=== PATIENT | female | born 1935 | race Caucasian/White ===

== ENCOUNTER → 2016-09-06 | Outpatient (REF) | payer OTHER ==
[2016-09-06 15:55] LABS: ALBUMIN 3.2 GM/DL (3.2-5.2); ALBUMIN/GLOBULIN RATIO 1.19 (1.00-1.93); BILIRUBIN,TOTAL 0.5 MG/DL (0.2-1.0); CALCIUM LEVEL 8.9 MG/DL (8.8-10.2); CREATININE FOR GFR 1.21 MG/DL (0.55-1.02); GLOMERULAR FILTRATION RATE 45.7 (>39); POTASSIUM SERUM 4.6 MEQ/L (3.5-5.1); TOTAL PROTEIN 5.9 GM/DL (6.4-8.2)
== END ==
LOC: M SFHCLACO 08:37
PROVIDERS: ATTEND Physician Assistant
DX: I10 Essential (primary) hypertension (principal); E78.2 Mixed hyperlipidemia; E03.9 Hypothyroidism, unspecified

== ENCOUNTER → 2017-09-05 | Outpatient (REF) | payer OTHER ==
[2017-09-05 15:03] LABS: HEMATOCRIT 31.3 % (36.0-47.0); HEMOGLOBIN 9.5 g/dl (12.0-16.0); MEAN CORPUSCULAR HEMOGLOBIN 25.7 pg (27.0-33.0); MEAN CORPUSCULAR HGB CONC 30.4 g/dl (32.0-36.5); MEAN CORPUSCULAR VOLUME 84.8 fl (80.0-96.0); PLATELET COUNT, AUTOMATED 409 10^3/uL (150-450); RED BLOOD COUNT 3.69 10^6/uL (4.00-5.40); RED CELL DISTRIBUTION WIDTH 14.2 % (11.5-14.5); WHITE BLOOD COUNT 8.4 10^3/uL (4.0-10.0)
[2017-09-05 15:26] LABS: ALBUMIN 3.2 GM/DL (3.2-5.2); ALBUMIN/GLOBULIN RATIO 1.03 (1.00-1.93); ALKALINE PHOSPHATASE 58 U/L (45-117); ALT/SGPT 18 U/L (12-78); ANION GAP 7 MEQ/L (8-16); AST/SGOT 15 U/L (7-37); BILIRUBIN,TOTAL 0.3 MG/DL (0.2-1.0); BLOOD UREA NITROGEN 24 MG/DL (7-18); CALCIUM LEVEL 8.8 MG/DL (8.8-10.2); CARBON DIOXIDE LEVEL 27 MEQ/L (21-32); CHLORIDE LEVEL 108 MEQ/L (98-107); CHOLESTEROL LEVEL 209 MG/DL (<200); CHOLESTEROL RISK RATIO 4.644 (<5); CREATININE FOR GFR 1.11 MG/DL (0.55-1.02); FERRITIN 14 NG/ML (8-252); GLOMERULAR FILTRATION RATE 50.3 (>32); GLUCOSE, FASTING 87 MG/DL (83-110); HDL CHOLESTEROL 45 MG/DL (>40); IRON (FE) 25 UG/DL (50-170); LDL CHOLESTEROL 135.6 MG/DL (<100); NON-HDL-C 164 MG/DL; PERCENT SATURATION 7.3 % (13.2-45.0); POTASSIUM SERUM 4.5 MEQ/L (3.5-5.1); SODIUM LEVEL 142 MEQ/L (136-145); TOTAL IRON BINDING CAPACITY 342 UG/DL (250-450); TOTAL PROTEIN 6.3 GM/DL (6.4-8.2); TRIGLYCERIDES LEVEL 142 MG/DL (<150)
== END ==
LOC: M SFHCLACO 09:12
DX: D50.9 Iron deficiency anemia, unspecified (principal); I10 Essential (primary) hypertension; E78.2 Mixed hyperlipidemia; E03.9 Hypothyroidism, unspecified
CPT/HCPCS: 83550

== ENCOUNTER → 2018-02-08 | Outpatient (REF) | payer OTHER | LOC: M SFHCLACO 13:03 | DX: R10.9 Unspecified abdominal pain (principal) | CPT/HCPCS: 87507 ==

== ENCOUNTER 2019-03-15 18:43 | Emergency (ER) | payer MEDICARE, OTHER ==
[~2019-03-15] VITALS: Ht 165.1 cm; Wt 57.3 kg
[2019-03-15] MEDS ORDERED: LISI40TA (18:50)
[2019-03-15] MEDS ORDERED: LEVO75TA4 (18:50)
[2019-03-15] MEDS ORDERED: METO1TAB87 (18:50)
[2019-03-15] MEDS ORDERED: OMEP-218 (18:50)
[2019-03-15 20:38] VITALS: BP 129/60
[2019-03-15] MEDS ORDERED: EPIP0.3I2 IM (21:25)
[2019-03-15] MEDS ORDERED: PRED20TA PO (21:25)
[2019-03-15] MEDS ORDERED: predniSONE 20 MG TAB PO ONE (21:30)
== END 2019-03-15 21:55 | disposition home or self-care (01) ==
LOC: M ED 18:43
DX: R10.9 Unspecified abdominal pain (principal); R19.7 Diarrhea, unspecified; T63.441A Toxic effect of venom of bees, accidental (unintentional), initial encounter; Y92.89 Other specified places as the place of occurrence of the external cause; I10 Essential (primary) hypertension; E78.5 Hyperlipidemia, unspecified; D50.9 Iron deficiency anemia, unspecified; E83.51 Hypocalcemia; M35.3 Polymyalgia rheumatica; Z79.899 Other long term (current) drug therapy; Z79.890 Hormone replacement therapy

== ENCOUNTER 2019-04-14 08:24 | Inpatient (IN) | payer MEDICARE ==
[~2019-04-14] VITALS: Ht 165.1 cm; Wt 61.1 kg
[~2019-04-14 08:24] MED LIST: EPIP0.3I2 IM; LEVO75TA4 PO; LISI40TA PO; METO1TAB87 PO; OMEP-218 PO; PRED20TA PO
[2019-04-14] MEDS ORDERED: NS 500 ML IV ONE (09:45)
[2019-04-14 10:10] LABS: BASO % 0.3 % (0.0-1.0); EOS % 0.2 % (0.0-3.0); HEMATOCRIT 19.1 % (36.0-47.0); LYMPH # 1.8 10^3/uL (1.5-4.5); MEAN CORPUSCULAR HEMOGLOBIN 24.4 pg (27.0-33.0); MEAN CORPUSCULAR HGB CONC 30.4 g/dl (32.0-36.5); MEAN CORPUSCULAR VOLUME 80.3 fl (80.0-96.0); MONO # 1.2 10^3/uL (0.0-0.8); MONO % 10.8 % (0.0-5.0); NEUTROPHILS # 8.1 10^3/uL (1.8-7.7); NEUTROPHILS % 71.8 % (36.0-66.0); PLATELET COUNT, AUTOMATED 376 10^3/uL (150-450); RED BLOOD COUNT 2.38 10^6/uL (4.00-5.40); WHITE BLOOD COUNT 11.3 10^3/uL (4.0-10.0)
[2019-04-14 10:13] LABS: HEMOGLOBIN 5.8 g/dl (12.0-15.5)
[2019-04-14 10:17] LABS: INR 1.07; PROTHROMBIN TIME 13.6 SECONDS (11.8-14.0)
[2019-04-14 10:33] LABS: ALBUMIN 2.2 GM/DL (3.2-5.2); ALT/SGPT 11 U/L (12-78); BILIRUBIN,DIRECT < 0.1 MG/DL (0.0-0.2); BILIRUBIN,TOTAL 0.2 MG/DL (0.2-1.0); BLOOD UREA NITROGEN 28 MG/DL (7-18); CALCIUM LEVEL 7.9 MG/DL (8.8-10.2); CARBON DIOXIDE LEVEL 22 MEQ/L (21-32); CHLORIDE LEVEL 110 MEQ/L (98-107); CK-MB VALUE MASS < 1.0 NG/ML (<3.6); CPK CREATINE PHOSPHOKINASE 33 U/L (26-192); CREATININE FOR GFR 1.03 MG/DL (0.55-1.30); GLOMERULAR FILTRATION RATE 54.6 (>32); GLUCOSE, FASTING 112 MG/DL (70-100); LIPASE 122 U/L (73-393); MB/CK RELATIVE INDEX 3.03 (< OR =4); POTASSIUM SERUM 4.2 MEQ/L (3.5-5.1); SODIUM LEVEL 141 MEQ/L (136-145); TOTAL PROTEIN 5.2 GM/DL (6.4-8.2); TROPONIN I < 0.02 NG/ML (< 0.10)
[2019-04-14] MEDS ORDERED: ISOVUE-370 76% 100ML VIAL (Q9967) As Ordered ONE (11:01)
[2019-04-14] MEDS ORDERED: METO1TAB87 PO (12:46)
--- NOTE | 2019-04-14 13:56 | HPEPDOC ---
General Date of Admission 04/14/19 Date of Service: Apr 14, 2019 Primary Care Physician: Gina Manzo PA-C, LAC Chief Complaint The patient is a 84-year-old female admitted with a reason for visit of DIZZY. Source: Patient Exam Limitations: No limitations Timing/Duration: Day(s) (today's) Severity: Severe Associated Symptoms: Other (abdominal pain) History of Present Illness 84 years old white female with past medical history of hypertension, hypothyroidism, GERD, status post hysterectomy, was in her usual state of health until about yesterday when she had 1 large polyp BM with bright red colored blood and subsequently after the BM. She passed out and was found by her . Patient just complaining of dizziness. Also complaining of left upper quadrant pain which is intermittent intensity of 6/10 discomfort in nature, not associated with any other symptoms not relieved with any medication and not exacerbated by our moment eating. Patient was found to have a hemoglobin of 5.81 unit of PRBC was ordered to be transfused in ED and we'll called in to admit patient for further workup. Home Medications Scheduled Epinephrine (Epipen 2-Liam) 0.3 Mg/0.3 Ml Auto.injct, 1 SYRINGE IM ONCE Levothyroxine Sodium (Levothyroxine Sodium) 75 Mcg Tablet, 75 MCG PO DAILY, (Reported) Lisinopril (Lisinopril) 40 Mg Tablet, 40 MG PO DAILY, (Reported) Metoprolol Tartrate (Metoprolol Tartrate) 25 Mg Tablet, 25 MG PO DAILY, (Rep orted) Metoprolol Tartrate (Metoprolol Tartrate) 25 Mg Tablet, 50 MG PO QHS, (Reported) Omeprazole (Omeprazole) 20 Mg Capsule.dr, 20 MG PO DAILY, (Reported) Allergies Coded Allergies: No Known Drug Allergies (Verified Allergy, Unknown, 03/15/19) Past Medical History Medical History Hypertension, hypothyroidism, GERD, last colonoscopy done was about 7-10 years ago at [facility] which was normal Surgical History Status post hysterectomy Social History * Smoker: Denies Alcohol: Denies Drugs: denies A-FIB/CHADSVASC A-FIB History Current/History of A-Fib/PAF?: No Review of Systems Constitutional: Reports: Other (, dizziness) Eyes: Denies: Pain, Vision change, Conjunctivae inflammation, Eyelid inflammation, Redness, Other ENT: Denies: Head Aches, Ear Pain, Dysphagia, Sinus Congestion, Post Nasal Drip, Sore Throat, Epistaxis, Other Symptoms Skin: Denies: Rash, Lesions, Jaundice, Bruising, Itching, Dry, Breakdown, Nail Changes, Other Pulmonary: Denies: Dyspnea, Cough, Pleuritic Chest Pain, Other Symptoms Cardiovascular: Denies: Chest Pain, Palpitations, Orthopnea, Paroxysmal Noc. Dyspnea, Edema, Lt Headedness, Other Symptoms Gastrointestinal: Reports: Other Symptoms (, bright red color blood per rectum) Genitourinary: Denies: Dysuria, Frequency, Incontinence, Hematuria, Retention, Other Symptoms Hematologic: Denies: Bruising, Bleeding Excessively, Petecchia, Purpura, Enlarged Lymph Nodes, Other Hematologic Endocrine: Denies: Polydipsia, Polyphagia, Polyuria, Heat Intolerance, Cold Intolerance, Other Endocrine Sx Musculoskeletal: Denies: Neck Pain, Back Pain, Shoulder Pain, Arm Pain, Hand Pain, Leg Pain, Foot Pain, Joint Pain, Muscle Pain, Spasms, Other Symptoms Neurological: Denies: Weakness, Numbness, Incoordination, Change in speech, Confusion, Seizures, Other Symptoms Psych: Denies: Mood Normal, Anxiety, Depression, Memory Issues, Thoughts of Self Harm, Anger, Thoughts of Harming Other, Other Psych Physical Examination General Exam: Positive: Alert, Cooperative Eye Exam: Positive: PERRLA, Conjunctiva & lids normal ENT Exam: Positive: Atraumatic, Mucous membr. moist/pink Neck Exam: Positive: Supple Chest Exam: Positive: Clear to auscultation, Normal air movement Heart Exam: Positive: Rate Normal, Normal S1, Normal S2 Abdomen Exam: Positive: Normal bowel sounds, Soft Extremity Exam: Positive: Normal pulses Skin Exam: Positive: Nl turgor and temperature Neuro Exam: Positive: Strength at 5/5 X4 ext, Sensation Intact Psych Exam: Positive: Mental status NL, Mood NL, Oriented x 3 Vital Signs Vital Signs Date Time Temp Pulse Resp B/P (MAP) Pulse Ox O2 Delivery O2 Flow Rate FiO2 04/14/19 12:00 131/63 (85) 04/14/19 11:54 82 18 100 Room Air 04/14/19 08:24 98.6 Laboratory Data Labs 24H Laboratory Tests 2 04/14/19 09:50: Immature Granulocyte % (Auto) 0.9, White Blood Count 11.3H, Red Blood Count 2.38L, Hemoglobin 5.8*L, Hematocrit 19.1L, Mean Corpuscular Volume 80.3, Mean Corpuscular Hemoglobin 24.4L, Mean Corpuscular Hemoglobin Concent 30.4L, Red Cell Distribution Width 15.4H, Platelet Count 376, Neutrophils (%) (Auto) 71.8H, Lymphocytes (%) (Auto) 16.0L, Monocytes (%) (Auto) 10.8H, Eosinophils (%) (Auto) 0.2, Basophils (%) (Auto) 0.3, Neutrophils # (Auto) 8.1H, Lymphocytes # (Auto) 1.8, Monocytes # (Auto) 1.2H, Eosinophils # (Auto) 0.0, Basophils # (Auto) 0.0, Nucleated Red Blood Cells % (auto) 0.0, Anion Gap 9, Glomerular Filtration Rate 54.6, Lactic Acid Level 1.4, Calcium Level 7.9L, Aspartate Amino Transf (AST/SGOT) 9, Alanine Aminotransferase (ALT/SGPT) 11L, Alkaline Phosphatase 47, Total Bilirubin 0.2, Direct Bilirubin < 0.1, Total Creatine Kinase 33, Creatine Kinase MB < 1.0, Creatine Kinase MB Relative Index 3.03, Troponin I < 0.02, Total Protein 5.2L, Albumin 2.2L, Albumin/Globulin Ratio 0.73L, Lipase 122 04/14/19 09:51: Prothrombin Time 13.6, Prothromb Time International Ratio 1.07, Activated Partial Thromboplast Time 24.0L CBC/BMP Laboratory Tests 04/14/19 09:50 Red Blood Count 2.38 L, Mean Corpuscular Volume 80.3, Mean Corpuscular Hemoglobin 24.4 L, Mean Corpuscular Hemoglobin Concent 30.4 L, Red Cell Distribution Width 15.4 H, Neutrophils (%) (Auto) 71.8 H, Lymphocytes (%) (Auto) 16.0 L, Monocytes (%) (Auto) 10.8 H, Eosinophils (%) (Auto) 0.2, Basophils (%) (Auto) 0.3, Neutrophils # (Auto) 8.1 H, Lymphocytes # (Auto) 1.8, Monocytes # (Auto) 1.2 H, Eosinophils # (Auto) 0.0, Basophils # (Auto) 0.0 Microbiology Microbiology 8/18/19 Blood Culture, Received Pending 04/14/19 Blood Culture, Received Pending Problems (1) Syncope Status: Acute Problem Text: 85 years old white female with past medical history of hypertension, hypothyroidism, GERD. She presented with chief complaints of 3 large bright red blood per rectum episodes followed by syncope. Syncope, most likely secondary to severe anemia secondary to GI bleed Patient will be admitted to PCU with telemetry monitoring IV fluids normal saline 150 mL per hour Transfusing 1 unit of PRBC and will check H&H every 6 hours and transfuse as needed Bed rest with bathroom privileges DVT prophylaxis with bilateral SCDs Monitor vital signs, intake and output (2) GI bleeding Status: Acute Problem Text: Most likely lower GI in nature, could be diverticular bleed versus IBD Patient will be transfused 1 unit of PRBC today CBC every 6 hours Transfuse as needed Dr. Brandon Cintron called and message left for GI consultation May Dani was called from ED in Dr. Chauhan spoke with him regarding consultation Other as per GI and surgery (3) Colitis Status: Acute Problem Text: Official report is still pending, but as per Dr. Chauhan CT abdomen and pelvis shows pancolitis Etiology is unknown patient did had a colonoscopy done about 7-10 years ago at [facility] and was within normal limits The question of IBD third further, will be assessed by GI (4) Anemia Status: Acute Problem Text: Secondary to acute blood loss secondary to lower GI bleed H&H every 6 hours Last visit as needed (5) Hypothyroid Status: Chronic Problem Text: Hold home meds. till Patient is nothing by mouth (6) HTN (hypertension) Status: Chronic Problem Text: Hold home meds (7) GERD (gastroesophageal reflux disease) Status: Chronic Problem Text: On Protonix Plan / VTE VTE Prophylaxis Ordered?: Yes FRANCISCO MOSHER MD Apr 14, 2019 13:56
[2019-04-14 15:23] LABS: HEMATOCRIT 26.9 % (36.0-47.0); MEAN CORPUSCULAR HEMOGLOBIN 26.7 pg (27.0-33.0); MEAN CORPUSCULAR HGB CONC 31.6 g/dl (32.0-36.5); MEAN CORPUSCULAR VOLUME 84.6 fl (80.0-96.0); PLATELET COUNT, AUTOMATED 350 10^3/uL (150-450); RED BLOOD COUNT 3.18 10^6/uL (4.00-5.40); WHITE BLOOD COUNT 9.9 10^3/uL (4.0-10.0)
[2019-04-14 15:24] LABS: HEMOGLOBIN 8.5 g/dl (12.0-15.5)
[2019-04-14] MEDS: PANTOPRAZOLE 40MG INJ (PROTONIX) (C9113) IV SCH ×2 (17:35→20:59)
[2019-04-14] MEDS: NS 1,000 ML IV SCH ×2 (17:35→20:44)
--- NOTE | 2019-04-14 19:21 | ECGEPIP ---
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
[2019-04-14 19:31] LABS: HEMATOCRIT 24.8 % (36.0-47.0); HEMOGLOBIN 7.8 g/dl (12.0-15.5); MEAN CORPUSCULAR HEMOGLOBIN 26.4 pg (27.0-33.0); MEAN CORPUSCULAR HGB CONC 31.5 g/dl (32.0-36.5); MEAN CORPUSCULAR VOLUME 83.8 fl (80.0-96.0); PLATELET COUNT, AUTOMATED 324 10^3/uL (150-450); RED BLOOD COUNT 2.96 10^6/uL (4.00-5.40); WHITE BLOOD COUNT 8.2 10^3/uL (4.0-10.0)
[2019-04-15 02:00] LABS: HEMOGLOBIN 7.3 g/dl (12.0-15.5); MEAN CORPUSCULAR HEMOGLOBIN 26.6 pg (27.0-33.0); MEAN CORPUSCULAR HGB CONC 31.7 g/dl (32.0-36.5); MEAN CORPUSCULAR VOLUME 83.9 fl (80.0-96.0); PLATELET COUNT, AUTOMATED 293 10^3/uL (150-450); RED BLOOD COUNT 2.74 10^6/uL (4.00-5.40); WHITE BLOOD COUNT 8.4 10^3/uL (4.0-10.0)
[2019-04-15] MEDS: NS 1,000 ML IV SCH ×3 (02:58→17:49)
--- NOTE | 2019-04-15 07:25 | REP ---
CT BRAIN WITHOUT CONTRAST: 04/14/2019. Clinical history: Syncope, head injury last evening. LOC. Findings: No prior study. Lateral ventricles are midline symmetric and dilated in proportion to the diffuse cerebral atrophy. All of this is age appropriate. Third and fourth ventricles are proportionate in size as well. Basal ganglia are symmetric. There are heterogeneous low attenuation white matter changes in periventricular regions suggesting chronic small vessel white matter ischemic disease. Moderate atrophy of the cortex without vascular territory infarct, intracranial hemorrhage, mass, extra-axial fluid collection or other significant finding. The brainstem unremarkable. The cerebellum shows atrophy but is symmetric. Mastoids and visualized sinuses were clear. Skull base and calvarium show no fracture or focal lesion. Impression: 1. Ventriculomegaly and proportionate cerebral atrophy, all age appropriate. 2. Chronic small vessel white matter ischemic changes. 3. No fracture of the skull base or calvarium and the sinuses and mastoids are clear. 4. No intracranial hemorrhage or other acute finding. Electronically Signed by Mega Hernandez MD 04/15/2019 08:05 A
--- NOTE | 2019-04-15 07:29 | REP ---
AP PORTABLE CHEST: 04/14/2019. Clinical history: GI bleeding. Findings: No prior study. Lungs well inflated and without infiltrate, effusion, atelectasis or mass. Heart, mediastinal and hilar contours normal for age. The aorta is mildly tortuous but without gross aneurysm. Degenerative changes in the spine and shoulders. No gross fracture. Bones appear demineralized. No free air under the diaphragms. Impression: 1. No acute cardiopulmonary change. Electronically Signed by Mega Hernandez MD 04/15/2019 08:05 A
--- NOTE | 2019-04-15 08:44 | REP ---
CT ABDOMEN AND PELVIS WITHOUT IV CONTRAST ONLY: 04/14/2019. Clinical history: Left lower quadrant pain, GI bleed. Technique: Bolus 100 mL Isovue 370 scanning through the abdomen and pelvis with coronal and sagittal reconstructions provided. Findings: No prior study. CT abdomen: Lung bases with minor dependent atelectatic changes otherwise clear. Heart size mildly prominent but with a trace pericardial fluid. Left atrium mildly prominent. I see no hiatal hernia. Stomach collapsed. Wall thickness, therefore difficult to research specialist. The liver and spleen are not enlarged. Elongated lateral segment left hepatic lobe goes and covers the spleen as an anatomic variation. Adrenal glands normal. Gallbladder without calcified stone or mass. Pancreas normal for age. The aorta has atherosclerotic calcifications without aneurysm or dissection. There is ectasia of the bilateral common iliac arteries without aneurysm. Kidneys show symmetric enhancement. There is no renal mass, cyst, stone or hydronephrosis. No hydroureter seen. I see no evidence of ureteral stone. Lung window review of all CT slices abdomen and pelvis shows no perforation or free air. There is evidence for a colonic wall thickening from cecum, right colon through transverse left colon to the sigmoid. There are inflammatory changes about it in the region of the hepatic flexure, right colon and cecum suggesting colitis. I do not see definite diverticulitis, stricture or mass although there is more thickening of the colonic wall in the region of the hepatic flexure and right colon than elsewhere. Appendix is seen and without inflammatory change or calcification within it. A few tiny nodes are seen adjacent to the cecum. Bone windows show diffuse degenerative disc changes from L2-3 through L5-S1. No compression fractures. No spondylolysis. The lower ribs were intact. CT pelvis: The sacrum, SI joints, iliac bones, hips and ischia show some degenerative change without destructive lesion or fracture. Bladder well filled without mass, wall thickening or stone. No ureteral dilatation or stone. Uterus absent and the vaginal cuff intact and are multiple pelvic phleboliths. The distal left colon and sigmoid show diffuse wall thickening and some minor stranding in the fat adjacent extending down to the rectosigmoid junction. Small bowel loops fluid-filled with some thickening of sheth of the distal and terminal ileum. I do not see any ascites in the pelvis. There is no ventral or inguinal hernia nor pathologic sized inguinal adenopathy. Impression: 1. Pancolitis without signs of diverticulosis/diverticulitis, abscess, perforation or free air. There is increased thickening of the colon wall at the hepatic flexure and proximal right colon that will need followup. I cannot exclude mucosal lesions of air or neoplasm. 2. Small bowel loops fluid-filled but not abnormally dilated. However the distal small bowel loops and terminal ileum do suggest some wall thickening and enteritis. 3. No abdominal or pelvic ascites, adenopathy or mass. 4. Gallbladder without calcified stone or mass. The kidneys, other abdominal solid organs all intact. Electronically Signed by Mega Hernandez MD 04/15/2019 08:49 A
[2019-04-15 10:06] LABS: HEMATOCRIT 25.1 % (36.0-47.0); HEMOGLOBIN 8.1 g/dl (12.0-15.5); MEAN CORPUSCULAR HEMOGLOBIN 27.1 pg (27.0-33.0); MEAN CORPUSCULAR HGB CONC 32.3 g/dl (32.0-36.5); MEAN CORPUSCULAR VOLUME 83.9 fl (80.0-96.0); PLATELET COUNT, AUTOMATED 328 10^3/uL (150-450); RED BLOOD COUNT 2.99 10^6/uL (4.00-5.40)
[2019-04-15] MEDS: PANTOPRAZOLE 40MG INJ (PROTONIX) (C9113) IV SCH ×2 (10:34→20:41)
[2019-04-15 10:41] LABS: ALBUMIN 1.9 GM/DL (3.2-5.2); ALT/SGPT 8 U/L (12-78); BILIRUBIN,TOTAL 0.4 MG/DL (0.2-1.0); BLOOD UREA NITROGEN 19 MG/DL (7-18); CALCIUM LEVEL 7.5 MG/DL (8.8-10.2); CARBON DIOXIDE LEVEL 22 MEQ/L (21-32); CHLORIDE LEVEL 114 MEQ/L (98-107); CREATININE FOR GFR 0.81 MG/DL (0.55-1.30); GLOMERULAR FILTRATION RATE > 60.0 (>32); GLUCOSE, FASTING 76 MG/DL (70-100); POTASSIUM SERUM 3.9 MEQ/L (3.5-5.1); SODIUM LEVEL 143 MEQ/L (136-145); TOTAL PROTEIN 4.9 GM/DL (6.4-8.2)
--- NOTE | 2019-04-15 12:21 | IPNPDOC ---
Subjective Date Seen The patient was seen on 04/15/19. Subjective Chief Complaint/HPI Patient seen and examined in no apparent distress. Family at the bedside General: Denies: ROS Unobtainable, Chills, Night Sweats, Fatigue, Malaise, Normal Appetite, Other Symptoms Constitutional: Denies: Chills, Fever, Malaise, Night Sweats, Weakness, Fatigue, Weight Loss, Lethargy, Other Eyes: Denies: Pain, Vision change, Conjunctivae inflammation, Eyelid inflammation, Redness, Other ENT: Denies: Head Aches, Ear Pain, Dysphagia, Sinus Congestion, Post Nasal Drip, Sore Throat, Epistaxis, Other Symptoms Skin: Denies: Rash, Lesions, Jaundice, Bruising, Itching, Dry, Breakdown, Nail Changes, Other Pulmonary: Denies: Dyspnea, Cough, Pleuritic Chest Pain, Other Symptoms Cardiovascular: Denies: Chest Pain, Palpitations, Orthopnea, Paroxysmal Noc. Dyspnea, Edema, Lt Headedness, Other Symptoms Gastrointestinal: Denies: Nausea, Vomiting, Abdominal Pain, Diarrhea, Co nstipation, Melena, Hematochezia, Other Symptoms Musculoskeletal: Denies: Neck Pain, Back Pain, Shoulder Pain, Arm Pain, Hand Pain, Leg Pain, Foot Pain, Joint Pain, Muscle Pain, Spasms, Other Symptoms Neurological: Denies: Weakness, Numbness, Incoordination, Change in speech, Confusion, Seizures, Other Symptoms Objective Physical Examination General Exam: Positive: Alert, Cooperative Eye Exam: Positive: PERRLA, Conjunctiva & lids normal ENT Exam: Positive: Atraumatic, Mucous membr. moist/pink Neck Exam: Positive: Supple Chest Exam: Positive: Clear to auscultation, Normal air movement Heart Exam: Positive: Rate Normal, Normal S1, Normal S2 Abdomen Exam: Positive: Normal bowel sounds, Soft Extremity Exam: Positive: Normal pulses Skin Exam: Positive: Nl turgor and temperature Neuro Exam: Positive: Strength at 5/5 X4 ext, Sensation Intact Psych Exam: Positive: Mental status NL, Mood NL, Oriented x 3 Assessment /Plan Problems (1) GI bleeding Status: Acute Problem Text: Most likely lower GI in nature, could be diverticular bleed versus IBD Patient will be transfused 1 unit of PRBC today CBC every 6 hours Transfuse as needed Discussed with Dr. Cintron. Patient will be seen by GI today H&H is stable right now. Hemoglobin is 8.1 and hematocrit of 25 And to monitor in H&H every 6 hours Further, as per GIs recommendation (2) Syncope Status: Acute Problem Text: 85 years old white female with past medical history of h ypertension, hypothyroidism, GERD. She presented with chief complaints of 3 large bright red blood per rectum episodes followed by syncope. Syncope, most likely secondary to severe anemia secondary to GI bleed Patient will be admitted to PCU with telemetry monitoring IV fluids normal saline 150 mL per hour Transfusing 1 unit of PRBC and will check H&H every 6 hours and transfuse as needed Bed rest with bathroom privileges DVT prophylaxis with bilateral SCDs Monitor vital signs, intake and output (3) Colitis Status: Acute Problem Text: Official report is still pending, but as per Dr. Chauhan CT abdomen and pelvis shows pancolitis Etiology is unknown patient did had a colonoscopy done about 7-10 years ago at [facility] and was within normal limits The question of IBD third further, will be assessed by GI (4) Anemia Status: Acute Problem Text: Secondary to acute blood loss secondary to lower GI bleed H&H every 6 hours Last visit as needed (5) Hypothyroid Status: Chronic Problem Text: Hold home meds. till Patient is nothing by mouth (6) HTN (hypertension) Status: Chronic Problem Text: Hold home meds (7) GERD (gastroesophageal reflux disease) Status: Chronic Problem Text: On Protonix Plan/VTE VTE Prophylaxis Ordered?: Yes VS, I&O, 24H, Fishbone Vital Signs/I&O Vital Signs Date Time Temp Pulse Resp B/P (MAP) Pulse Ox O2 Delivery O2 Flow Rate FiO2 04/15/19 11:32 98.0 88 16 170/75 (106) 100 Room Air I&O- Last 24 Hours up to 6 AM 04/15/19 06:00 Output Total 500 ml Balance -500 ml Laboratory Data 24H LABS Laboratory Tests 2 04/14/19 14:56: Nucleated Red Blood Cells % (auto) 0.0 04/14/19 19:26: Nucleated Red Blood Cells % (auto) 0.0 04/15/19 01:55: Nucleated Red Blood Cells % (auto) 0.0 04/15/19 09:52: Nucleated Red Blood Cells % (auto) 0.0, Anion Gap 7L, Glomerular Filtration Rate > 60.0, Blood Urea Nitrogen 19H, Creatinine 0.81, Sodium Level 143, Potassium Level 3.9, Chloride Level 114H, Carbon Dioxide Level 22, Calcium Level 7.5L, Aspartate Amino Transf (AST/SGOT) 8, Alanine Aminotransferase (ALT/SGPT) 8L, Alkaline Phosphatase 43L, Total Bilirubin 0.4#, Total Protein 4.9L, Albumin 1.9L, Albumin/Globulin Ratio 0.63L CBC/BMP Laboratory Tests 04/14/19 14:56 Red Blood Count 3.18 L, Mean Corpuscular Volume 84.6, Mean Corpuscular Hemoglobin 26.7 L, Mean Corpuscular Hemoglobin Concent 31.6 L, Red Cell Distribution Width 16.3 H 04/14/19 19:26 Red Blood Count 2.96 L, Mean Corpuscular Volume 83.8, Mean Corpuscular Hemoglobin 26.4 L, Mean Corpuscular Hemoglobin Concent 31.5 L, Red Cell Distribution Width 15.8 H 04/15/19 01:55 Red Blood Count 2.74 L, Mean Corpuscular Volume 83.9, Mean Corpuscular Hemoglobin 26.6 L, Mean Corpuscular Hemoglobin Concent 31.7 L, Red Cell Distribution Width 15.9 H 04/15/19 09:52 Red Blood Count 2.99 L, Mean Corpuscular Volume 83.9, Mean Corpuscular Hem oglobin 27.1, Mean Corpuscular Hemoglobin Concent 32.3, Red Cell Distribution Width 16.0 H, Calcium Level 7.5 L, Aspartate Amino Transf (AST/SGOT) 8, Alanine Aminotransferase (ALT/SGPT) 8 L, Alkaline Phosphatase 43 L, Total Bilirubin 0.4 #, Total Protein 4.9 L, Albumin 1.9 L Microbiology Microbiology 04/14/19 Blood Culture - Preliminary, Resulted No growth after 24 hours . All specim... 04/14/19 Blood Culture - Preliminary, Resulted No growth after 24 hours . All specim... FRANCISCO MOSHER MD Apr 15, 2019 12:21
[2019-04-15 13:06] LABS: HEMATOCRIT 23.6 % (36.0-47.0); HEMOGLOBIN 7.5 g/dl (12.0-15.5); MEAN CORPUSCULAR HEMOGLOBIN 26.2 pg (27.0-33.0); MEAN CORPUSCULAR HGB CONC 31.8 g/dl (32.0-36.5); MEAN CORPUSCULAR VOLUME 82.5 fl (80.0-96.0); PLATELET COUNT, AUTOMATED 332 10^3/uL (150-450); RED BLOOD COUNT 2.86 10^6/uL (4.00-5.40); WHITE BLOOD COUNT 9.5 10^3/uL (4.0-10.0)
[2019-04-15 14:40] VITALS: BP 165/71
[2019-04-15 16:00] VITALS: BP 135/63
[2019-04-15 19:00] LABS: HEMATOCRIT 19.6 % (36.0-47.0); MEAN CORPUSCULAR HEMOGLOBIN 25.8 pg (27.0-33.0); MEAN CORPUSCULAR HGB CONC 30.1 g/dl (32.0-36.5); MEAN CORPUSCULAR VOLUME 85.6 fl (80.0-96.0); PLATELET COUNT, AUTOMATED 279 10^3/uL (150-450); RED BLOOD COUNT 2.29 10^6/uL (4.00-5.40); WHITE BLOOD COUNT 6.8 10^3/uL (4.0-10.0)
[2019-04-15 19:04] LABS: HEMOGLOBIN 5.9 g/dl (12.0-15.5)
[2019-04-15 20:00] VITALS: BP 150/67
[2019-04-15 23:59] VITALS: BP 135/68
[2019-04-16] MEDS: NS 1,000 ML IV SCH ×4 (03:00→20:54)
[2019-04-16 03:20] LABS: HEMATOCRIT 31.3 % (36.0-47.0); MEAN CORPUSCULAR HEMOGLOBIN 25.8 pg (27.0-33.0); MEAN CORPUSCULAR HGB CONC 32.3 g/dl (32.0-36.5); MEAN CORPUSCULAR VOLUME 79.8 fl (80.0-96.0); PLATELET COUNT, AUTOMATED 326 10^3/uL (150-450); RED BLOOD COUNT 3.92 10^6/uL (4.00-5.40)
[2019-04-16 03:22] LABS: HEMOGLOBIN 10.1 g/dl (12.0-15.5)
[2019-04-16 03:31] LABS: INR 1.1; PROTHROMBIN TIME 13.9 SECONDS (11.8-14.0)
[2019-04-16 03:32] LABS: PARTIAL THROMBOPLASTIN TIME 28.7 SECONDS (25.0-38.4)
[2019-04-16 03:46] LABS: ALBUMIN 1.9 GM/DL (3.2-5.2); ALT/SGPT 9 U/L (12-78); BILIRUBIN,DIRECT 0.2 MG/DL (0.0-0.2); BILIRUBIN,TOTAL 1.1 MG/DL (0.2-1.0); BLOOD UREA NITROGEN 14 MG/DL (7-18); CALCIUM LEVEL 7.5 MG/DL (8.8-10.2); CARBON DIOXIDE LEVEL 23 MEQ/L (21-32); CHLORIDE LEVEL 117 MEQ/L (98-107); CREATININE FOR GFR 0.83 MG/DL (0.55-1.30); GLOMERULAR FILTRATION RATE > 60.0 (>32); GLUCOSE, FASTING 77 MG/DL (70-100); POTASSIUM SERUM 3.6 MEQ/L (3.5-5.1); SODIUM LEVEL 145 MEQ/L (136-145); TOTAL PROTEIN 4.9 GM/DL (6.4-8.2)
[2019-04-16 04:00] VITALS: BP 147/70
[2019-04-16 08:00] VITALS: BP 139/70
[2019-04-16] MEDS ORDERED: GOLYTELY SOLN 4000 ML BTL PO ONE (09:00)
[2019-04-16] MEDS: PANTOPRAZOLE 40MG INJ (PROTONIX) (C9113) IV SCH ×2 (09:06→20:54)
--- NOTE | 2019-04-16 10:41 | IPNPDOC ---
Subjective Date Seen The patient was seen on 04/16/19. Subjective Chief Complaint/HPI Patient sitting in chair. Both granddaughters at the bedside in no apparent distress. Offers no new complaints General: Denies: ROS Unobtainable, Chills, Night Sweats, Fatigue, Malaise, Normal Appetite, Other Symptoms Constitutional: Denies: Chills, Fever, Malaise, Night Sweats, Weakness, Fatigue, Weight Loss, Lethargy, Other Eyes: Denies: Pain, Vision change, Conjunctivae inflammation, Eyelid inflammation, Redness, Other ENT: Denies: Head Aches, Ear Pain, Dysphagia, Sinus Congestion, Post Nasal Drip, Sore Throat, Epistaxis, Other Symptoms Skin: Denies: Rash, Lesions, Jaundice, Bruising, Itching, Dry, Breakdown, Nail Changes, Other Pulmonary: Denies: Dyspnea, Cough, Pleuritic Chest Pain, Other Symptoms Cardiovascular: Denies: Chest Pain, Palpitations, Orthopnea, Paroxysmal Noc. Dy spnea, Edema, Lt Headedness, Other Symptoms Gastrointestinal: Denies: Nausea, Vomiting, Abdominal Pain, Diarrhea, Constipation, Melena, Hematochezia, Other Symptoms Genitourinary: Denies: Dysuria, Frequency, Incontinence, Hematuria, Retention, Other Symptoms Hematologic: Denies: Bruising, Bleeding Excessively, Petecchia, Purpura, En larged Lymph Nodes, Other Hematologic Endocrine: Denies: Polydipsia, Polyphagia, Polyuria, Heat Intolerance, Cold Intolerance, Other Endocrine Sx Musculoskeletal: Denies: Neck Pain, Back Pain, Shoulder Pain, Arm Pain, Hand Pain, Leg Pain, Foot Pain, Joint Pain, Muscle Pain, Spasms, Other Symptoms Neurological: Denies: Weakness, Numbness, Incoordination, Change in speech, Confusion, Seizures, Other Symptoms Objective Physical Examination General Exam: Positive: Alert, Cooperative Eye Exam: Positive: PERRLA, Conjunctiva & lids normal ENT Exam: Positive: Atraumatic, Mucous membr. moist/pink Neck Exam: Positive: Supple Chest Exam: Positive: Clear to auscultation, Normal air movement Heart Exam: Positive: Rate Normal, Normal S1, Normal S2 Abdomen Exam: Positive: Normal bowel sounds, Soft Extremity Exam: Positive: Normal pulses Skin Exam: Positive: Nl turgor and temperature Neuro Exam: Positive: Strength at 5/5 X4 ext, Sensation Intact Psych Exam: Positive: Mental status NL, Mood NL, Oriented x 3 Assessment /Plan Problems (1) GI bleeding Status: Acute Problem Text: Most likely lower GI in nature, could be diverticular bleed versus IBD Patient received 2 units of PRBC last night with hemoglobin of 10.1, now Scheduled for colonoscopy and EGD in a.m. Repeat CBC at 5 PM today Transfuse as needed. continue Protonix (2) Syncope Status: Acute Problem Text: 85 years old white female with past medical history of hypertension, hypothyroidism, GERD. She presented with chief complaints of 3 large bright red blood per rectum episodes followed by syncope. Syncope, most likely secondary to severe anemia secondary to GI bleed Patient will be admitted to PCU with telemetry monitoring IV fluids normal saline 150 mL per hour Bed rest with bathroom privileges DVT prophylaxis with bilateral SCDs Monitor vital signs, intake and output (3) Colitis Status: Acute Problem Text: Official report is still pending, but as per Dr. Chauhan CT abdomen and pelvis shows pancolitis Etiology is unknown patient did had a colonoscopy done about 7-10 years ago at [place] and was within normal limits The question of IBD third further, will be assessed by GI (4) Anemia Status: Acute Problem Text: Secondary to acute blood loss secondary to lower GI bleed H&H every 6 hours Last visit as needed (5) Hypothyroid Status: Chronic Problem Text: Hold home meds. till Patient is nothing by mouth (6) HTN (hypertension) Status: Chronic Problem Text: Hold home meds (7) GERD (gastroesophageal reflux disease) Status: Chronic Problem Text: On Protonix Plan/VTE VTE Prophylaxis Ordered?: Yes VS, I&O, 24H, [facility] Vital Signs/I&O Vital Signs Date Time Temp Pulse Resp B/P (MAP) Pulse Ox O2 Delivery O2 Flow Rate FiO2 04/16/19 08:00 97.5 78 20 139/70 (93) 99 04/15/19 11:32 Room Air I&O- Last 24 Hours up to 6 AM 04/16/19 06:00 Intake Total 2985 ml Output Total 1850 ml Balance 1135 ml Laboratory Data 24H LABS Laboratory Tests 2 04/15/19 12:54: Nucleated Red Blood Cells % (auto) 0.0 04/15/19 18:48: Nucleated Red Blood Cells % (auto) 0.0 04/16/19 03:03: Nucleated Red Blood Cells % (auto) 0.0, Prothrombin Time 13.9, Prothromb Time International Ratio 1.10, Activated Partial Thromboplast Time 28.7, Anion Gap 5L, Glomerular Filtration Rate > 60.0, Blood Urea Nitrogen 14, Creatinine 0.83, Sodium Level 145, Potassium Level 3.6, Chloride Level 117H, Carbon Dioxide Level 23, Calcium Level 7.5L, Aspartate Amino Transf (AST/SGOT) 15, Alanine Aminotransferase (ALT/SGPT) 9L, Alkaline Phosphatase 42L, Total Bilirubin 1.1#H, Direct Bilirubin 0.2, Total Protein 4.9L, Albumin 1.9L, Albumin/Globulin Ratio 0.63L CBC/BMP Laboratory Tests 04/15/19 12:54 Red Blood Count 2.86 L, Mean Corpuscular Volume 82.5, Mean Corpuscular Hemoglobin 26.2 L, Mean Corpuscular Hemoglobin Concent 31.8 L, Red Cell Distribution Width 16.2 H 04/15/19 18:48 Red Blood Count 2.29 L, Mean Corpuscular Volume 85.6, Mean Corpuscular Hemoglobin 25.8 L, Mean Corpuscular Hemoglobin Concent 30.1 L, Red Cell Distribution Width 16.2 H 04/16/19 03:03 Red Blood Count 3.92 L, Mean Corpuscular Volume 79.8 L, Mean Corpuscular Hemoglobin 25.8 L, Mean Corpuscular Hemoglobin Concent 32.3, Red Cell Dist ribution Width 17.9 H, Calcium Level 7.5 L, Aspartate Amino Transf (AST/SGOT) 15, Alanine Aminotransferase (ALT/SGPT) 9 L, Alkaline Phosphatase 42 L, Total Bilirubin 1.1 #H, Direct Bilirubin 0.2, Total Protein 4.9 L, Albumin 1.9 L Microbiology Microbiology 04/14/19 Blood Culture - Preliminary, Resulted No Growth after 48 hours. All Specime... 04/14/19 Blood Culture - Preliminary, Resulted No Growth after 48 hours. All Specime... FRANCISCO MOSHER MD Apr 16, 2019 10:41
[2019-04-16 12:00] VITALS: BP 145/60
--- NOTE | 2019-04-16 16:54 | CR ---
DATE OF CONSULTATION: 04/15/2019 This is an 84-year-old white female who was admitted on Monday morning to [facility] due to sudden onset of rectal bleeding, sudden onset on Monday. The patient had at least four bowel movements of apparent bright red blood per rectum. She sustained unconsciousness with no head trauma. No fevers, night sweats or shaking chills. The patient has never had any episodes of bleeding from the rectum. Her last colonoscopy was at least 12 years ago. The patient has a significant past medical history of hypertension, hypothyroidism, gastroesophageal reflux disease (GERD), status post hysterectomy. She has no complaints abdominal pain. No fevers, night sweats or shaking chills. No nausea or vomiting. The patient's counts on admission showed a hemoglobin of 5.81. MEDICATIONS AT HOME: Include an Epipen, levothyroxine, lisinopril and metoprolol, and omeprazole. ALLERGIES: No known declared allergies. PAST MEDICAL HISTORY: As above. Again, the last colonoscopy was at least 10-12 years ago. SURGICAL HISTORY: Status post hysterectomy. SOCIAL HISTORY: Cigarettes, alcohol, drugs negative. REVIEW OF SYSTEMS: Noncontributory to the above problem. PHYSICAL EXAM: General: She is a well-developed, well-nourished white female in no obvious acute distress. Appears stated age. Abdomen: Soft but very mild epigastric tenderness. No hepatosplenomegaly. Bowel sounds positive. Chest is clear to auscultation and percussion. Cardiovascular exam showed a regular rhythm. No murmurs or gallops. Normal physiological split S1, S2. Extremities: No cyanosis, clubbing or edema. Marion's negative. Laboratory studies on admission showed a white count of 11,300, hemoglobin and hematocrit that is 5.8 and 19.1. The patient has had blood transfusion, two units of packed cells. Her blood count on the day of consultation on 04/15/2019 showed a hemoglobin and hematocrit (blood count) of 5.9 and 19.6. CMP was normal. Albumin was 2.2. Imaging studies on Ekaterina included an abdominal CT. Abdominal CT showed no masses or strictures. No diverticulitis was seen. ANALYSIS: Lower gastrointestinal (GI) bleeding of unknown etiology. PLAN: At the present time, the plan will be: 1. Transfuse the patient as needed. 2. Surgery has been consulted. 3. Start the patient on a liquid diet. 4. Colonoscopy will be set up for Monday in [facility] with upper endoscopy for evaluation of epigastric tenderness.
[2019-04-16 17:14] LABS: HEMATOCRIT 32.1 % (36.0-47.0); HEMOGLOBIN 10.2 g/dl (12.0-15.5); MEAN CORPUSCULAR HEMOGLOBIN 25.4 pg (27.0-33.0); MEAN CORPUSCULAR HGB CONC 31.8 g/dl (32.0-36.5); MEAN CORPUSCULAR VOLUME 79.9 fl (80.0-96.0); PLATELET COUNT, AUTOMATED 354 10^3/uL (150-450); RED BLOOD COUNT 4.02 10^6/uL (4.00-5.40); WHITE BLOOD COUNT 8.3 10^3/uL (4.0-10.0)
[2019-04-16 20:00] VITALS: BP 156/78
[2019-04-16 23:59] VITALS: BP 160/64
[2019-04-17 04:00] VITALS: BP 134/72
[2019-04-17 04:52] LABS: HEMATOCRIT 31.3 % (36.0-47.0); HEMOGLOBIN 9.8 g/dl (12.0-15.5); MEAN CORPUSCULAR HEMOGLOBIN 25.1 pg (27.0-33.0); MEAN CORPUSCULAR HGB CONC 31.3 g/dl (32.0-36.5); MEAN CORPUSCULAR VOLUME 80.3 fl (80.0-96.0); PLATELET COUNT, AUTOMATED 352 10^3/uL (150-450); WHITE BLOOD COUNT 7.5 10^3/uL (4.0-10.0)
[2019-04-17 05:17] LABS: ALT/SGPT 9 U/L (12-78); BILIRUBIN,TOTAL 0.7 MG/DL (0.2-1.0); BLOOD UREA NITROGEN 7 MG/DL (7-18); CALCIUM LEVEL 7.5 MG/DL (8.8-10.2); CARBON DIOXIDE LEVEL 21 MEQ/L (21-32); CHLORIDE LEVEL 115 MEQ/L (98-107); CREATININE FOR GFR 0.77 MG/DL (0.55-1.30); GLOMERULAR FILTRATION RATE > 60.0 (>32); GLUCOSE, FASTING 68 MG/DL (70-100); POTASSIUM SERUM 3.4 MEQ/L (3.5-5.1); SODIUM LEVEL 144 MEQ/L (136-145); TOTAL PROTEIN 4.3 GM/DL (6.4-8.2)
[2019-04-17 08:00] VITALS: BP 155/72
[2019-04-17] MEDS: KCL 10MEQ/100ML SWI (KRUN) 10 MEQ in APPROPRIATE DILUENT 1 EA IV SCH ×2 (08:58→10:24)
[2019-04-17] MEDS: PANTOPRAZOLE 40MG INJ (PROTONIX) (C9113) IV SCH ×2 (08:58→21:06)
[2019-04-17] MEDS: NS 1,000 ML IV SCH (08:58)
--- NOTE | 2019-04-17 11:56 | IPNPDOC ---
Subjective Date Seen The patient was seen on 04/17/19. Subjective Chief Complaint/HPI Patient is clinically stable, awaiting EGD and colonoscopy today General: Denies: ROS Unobtainable, Chills, Night Sweats, Fatigue, Malaise, Normal Appetite, Other Symptoms Constitutional: Denies: Chills, Fever, Malaise, Night Sweats, Weakness, Fatigue, Weight Loss, Lethargy, Other Eyes: Denies: Pain, Vision change, Conjunctivae inflammation, Eyelid inflammation, Redness, Other ENT: Denies: Head Aches, Ear Pain, Dysphagia, Sinus Congestion, Post Nasal Dr ip, Sore Throat, Epistaxis, Other Symptoms Skin: Denies: Rash, Lesions, Jaundice, Bruising, Itching, Dry, Breakdown, Nail Changes, Other Pulmonary: Denies: Dyspnea, Cough, Pleuritic Chest Pain, Other Symptoms Cardiovascular: Denies: Chest Pain, Palpitations, Orthopnea, Paroxysmal Noc. Dyspnea, Edema, Lt Headedness, Other Symptoms Gastrointestinal: Denies: Nausea, Vomiting, Abdominal Pain, Diarrhea, Constipation, Melena, Hematochezia, Other Symptoms Musculoskeletal: Denies: Neck Pain, Back Pain, Shoulder Pain, Arm Pain, Hand Pain, Leg Pain, Foot Pain, Joint Pain, Muscle Pain, Spasms, Other Symptoms Neurological: Denies: Weakness, Numbness, Incoordination, Change in speech, Confusion, Seizures, Other Symptoms Objective Physical Examination General Exam: Positive: Alert, Cooperative Eye Exam: Positive: PERRLA, Conjunctiva & lids normal ENT Exam: Positive: Atraumatic, Mucous membr. moist/pink Neck Exam: Positive: Supple Chest Exam: Positive: Clear to auscultation, Normal air movement Heart Exam: Positive: Rate Normal, Normal S1, Normal S2 Abdomen Exam: Positive: Normal bowel sounds, Soft Extremity Exam: Positive: Normal pulses Skin Exam: Positive: Nl turgor and temperature Neuro Exam: Positive: Strength at 5/5 X4 ext, Sensation Intact Psych Exam: Positive: Mental status NL, Mood NL, Oriented x 3 Assessment /Plan Problems (1) GI bleeding Status: Acute Problem Text: Most likely lower GI in nature, could be diverticular bleed versus IBD Patient's hemoglobin stable, etc. Scheduled for EGD and colonoscopy today Continue Protonix Repeat H&H in a.m. Further, as per GI recommendation (2) Syncope Status: Acute Problem Text: 85 years old white female with past medical history of hypertension, hypothyroidism, GERD. She presented with chief complaints of 3 large bright red blood per rectum episodes followed by syncope. Syncope, most likely secondary to severe anemia secondary to GI bleed Patient will be admitted to PCU with telemetry monitoring IV fluids normal saline 150 mL per hour Bed rest with bathroom privileges DVT prophylaxis with bilateral SCDs Monitor vital signs, intake and output (3) Colitis Status: Acute Problem Text: Official report is still pending, but as per Dr. Chauhan CT abdomen and pelvis shows pancolitis Etiology is unknown patient did had a colonoscopy done about 7-10 years ago at [place] and was within normal limits The question of IBD third further, will be assessed by GI (4) Anemia Status: Acute Problem Text: Secondary to acute blood loss secondary to lower GI bleed H&H in a.m. stable at the present time (5) Hypothyroid Status: Chronic Problem Text: Hold home meds. till Patient is nothing by mouth (6) HTN (hypertension) Status: Chronic Problem Text: Hold home meds Will restart after the procedure (7) GERD (gastroesophageal reflux disease) Status: Chronic Problem Text: On Protonix Plan/VTE VTE Prophylaxis Ordered?: Yes VS, I&O, 24H, [facility] Vital Signs/I&O Vital Signs Date Time Temp Pulse Resp B/P (MAP) Pulse Ox O2 Delivery O2 Flow Rate FiO2 04/17/19 08:00 98.3 74 20 155/72 (99) 99 04/15/19 11:32 Room Air I&O- Last 24 Hours up to 6 AM 04/17/19 06:00 Intake Total 2860 ml Output Total 3875 ml Balance -1015 ml Laboratory Data 24H LABS Laboratory Tests 2 04/16/19 16:39: Nucleated Red Blood Cells % (auto) 0.0 04/17/19 04:21: Nucleated Red Blood Cells % (auto) 0.0, Anion Gap 8, Glomerular Filtration Rate > 60.0, Blood Urea Nitrogen 7, Creatinine 0.77, Sodium Level 144, Potassium Level 3.4L, Chloride Level 115H, Carbon Dioxide Level 21, Calcium Level 7.5L, Aspartate Amino Transf (AST/SGOT) 10, Alanine Aminotransferase (ALT/SGPT) 9L, Alkaline Phosphatase 43L, Total Bilirubin 0.7, Total Protein 4.3L, Albumin 2.0L, Albumin/Globulin Ratio 0.87L CBC/BMP Laboratory Tests 04/16/19 16:39 Red Blood Count 4.02, Mean Corpuscular Volume 79.9 L, Mean Corpuscular Hemoglobin 25.4 L, Mean Corpuscular Hemoglobin Concent 31.8 L, Red Cell Distribution Width 18.7 H 04/17/19 04:21 Red Blood Count 3.90 L, Mean Corpuscular Volume 80.3, Mean Corpuscular Hemoglobin 25.1 L, Mean Corpuscular Hemoglobin Concent 31.3 L, Red Cell Distribution Width 18.9 H, Calcium Level 7.5 L, Aspartate Amino Transf (AST/SGOT) 10, Alanine Aminotransferase (ALT/SGPT) 9 L, Alkaline Phosphatase 43 L, Total Bilirubin 0.7, Total Protein 4.3 L, Albumin 2.0 L Microbiology Microbiology 04/14/19 Blood Culture - Preliminary, Resulted No Growth after 72 hours. All specime... 04/14/19 Blood Culture - Preliminary, Resulted No Growth after 72 hours. All specime... FRANCISCO MOSHER MD Apr 17, 2019 11:56
[2019-04-17 12:00] VITALS: BP 136/82
[2019-04-17] MEDS ORDERED: LIDOCAINE 2% INJ 100 MG/5 ML SDV (FOR ANES.) As Ordered ONE (13:00)
[2019-04-17] MEDS ORDERED: PROPOFOL 200 MG/20 ML VIAL As Ordered ONE (13:00)
--- NOTE | 2019-04-17 13:24 | ROOR ---
Patient Name: Ekaterina Smith Procedure Date: 04/17/2019 1:09 PM Date of : 1935 Age: 84 Room: [facility] Gender: Female Note Status: Finalized Procedure: Upper GI endoscopy Indications: Epigastric abdominal pain Providers: Brandon Cintron MD Referring MD: 2. Inpatient 2. Inpatient, TERENCE Morel PA-C Requesting Provider: Medicines: Monitored Anesthesia Care Complications: No immediate complications. Procedure: Pre-Anesthesia Assessment: - The heart rate, respiratory rate, oxygen saturations, blood pressure, adequacy of pulmonary ventilation, and response to care were monitored throughout the procedure. The Endoscope was introduced through the mouth, and advanced to the second part of duodenum. The upper GI endoscopy was accomplished without difficulty. The patient tolerated the procedure well. Findings: The Z-line was regular and was found 40 cm from the incisors. No other significant abnormalities were identified in a careful examination of the stomach. The exam of the duodenum was otherwise normal. Impression: - Z-line regular, 40 cm from the incisors. - No specimens collected. - The examination was otherwise normal. Recommendation: - Patient has a contact number available for emergencies. The signs and symptoms of potential delayed complications were discussed with the patient. Return to normal activities tomorrow. Written discharge instructions were provided to the patient. - High fiber diet. - Continue present medications. - Return to referring physician. - [facility]. - The findings and recommendations were discussed with the patient's family. Brandon Cintron MD Brandon Cintron MD 04/17/2019 1:23:47 PM Electronically signed by Brandon Cintron MD Number of Addenda: 0 Note Initiated On: 04/17/2019 1:09 PM Estimated Blood Loss: Estimated blood loss: none.
--- NOTE | 2019-04-17 13:52 | ROOR ---
Patient Name: Ekaterina Smith Procedure Date: 04/17/2019 1:11 PM Date of : 1935 Age: 84 Room: [facility] Gender: Female Note Status: Finalized Procedure: Total Colonoscopy to cecum + Bx. Indications: Rectal bleeding Providers: Brandon Cintron MD Referring MD: 2. Inpatient 2. Inpatient, TERENCE Morel PA-C Requesting Provider: Medicines: Monitored Anesthesia Care Complications: No immediate complications. Procedure: Pre-Anesthesia Assessment: - The heart rate, respiratory rate, oxygen saturations, blood pressure, adequacy of pulmonary ventilation, and response to care were monitored throughout the procedure. The Colonoscope was introduced through the anus and advanced to the cecum, identified by appendiceal orifice and ileocecal valve. The colonoscopy was performed without difficulty. The patient tolerated the procedure well. The quality of the bowel preparation was good. Findings: The perianal and digital rectal examinations were normal. Non-bleeding internal hemorrhoids were found during retroflexion. The hemorrhoids were small and Grade I (internal hemorrhoids that do not prolapse). Multiple small and large-mouthed diverticula were found in the recto-sigmoid colon, sigmoid colon and descending colon. A polypoid non-obstructing large mass was found in the cecum. The mass was circumferential. No bleeding was present. This was biopsied with a cold forceps for histology. A small polyp was found in the mid ascending colon. The polyp was sessile. The polyp was removed with a jumbo cold forceps. Resection and retrieval were complete. The exam was otherwise without abnormality on direct and retroflexion views. Impression: - Non-bleeding internal hemorrhoids. - Diverticulosis in the recto-sigmoid colon, in the sigmoid colon and in the descending colon. - Rule out malignancy, tumor in the cecum. Biopsied. - One small polyp in the mid ascending colon, removed with a jumbo cold forceps. Resected and retrieved. - The examination was otherwise normal on direct and retroflexion views. Recommendation: - Patient has a contact number available for emergencies. The signs and symptoms of potential delayed complications were discussed with the patient. Return to normal activities tomorrow. Written discharge instructions were provided to the patient. - [facility]. - Resume regular diet. - Await pathology results. - Telephone GI clinic for pathology results in 1 week. - Return to referring physician. - The findings and recommendations were discussed with the patient's family. Brandon Cintron MD Brandon Cintron MD 04/17/2019 1:52:37 PM Electronically signed by Brandon Cintron MD Number of Addenda: 0 Note Initiated On: 04/17/2019 1:11 PM Estimated Blood Loss: Estimated blood loss: none.
[2019-04-17 16:00] VITALS: BP 134/86
[2019-04-17 20:00] VITALS: BP 150/72
[2019-04-17 23:59] VITALS: BP 134/74
[2019-04-18] MEDS: NS 1,000 ML IV SCH (03:00)
[2019-04-18 04:00] VITALS: BP 140/65
[2019-04-18 05:48] LABS: HEMATOCRIT 31.4 % (36.0-47.0); HEMOGLOBIN 9.9 g/dl (12.0-15.5); MEAN CORPUSCULAR HEMOGLOBIN 24.8 pg (27.0-33.0); MEAN CORPUSCULAR HGB CONC 31.5 g/dl (32.0-36.5); MEAN CORPUSCULAR VOLUME 78.5 fl (80.0-96.0); PLATELET COUNT, AUTOMATED 345 10^3/uL (150-450); WHITE BLOOD COUNT 10.1 10^3/uL (4.0-10.0)
[2019-04-18 06:24] LABS: ALBUMIN 1.9 GM/DL (3.2-5.2); ALT/SGPT 7 U/L (12-78); BILIRUBIN,TOTAL 0.5 MG/DL (0.2-1.0); BLOOD UREA NITROGEN 5 MG/DL (7-18); CALCIUM LEVEL 7.4 MG/DL (8.8-10.2); CARBON DIOXIDE LEVEL 22 MEQ/L (21-32); CHLORIDE LEVEL 114 MEQ/L (98-107); CREATININE FOR GFR 0.84 MG/DL (0.55-1.30); GLOMERULAR FILTRATION RATE > 60.0 (>32); GLUCOSE, FASTING 76 MG/DL (70-100); POTASSIUM SERUM 3.5 MEQ/L (3.5-5.1); SODIUM LEVEL 144 MEQ/L (136-145); TOTAL PROTEIN 4.7 GM/DL (6.4-8.2)
[2019-04-18 08:00] VITALS: BP 172/88
[2019-04-18] MEDS: PANTOPRAZOLE 40MG INJ (PROTONIX) (C9113) IV SCH (08:40)
[2019-04-18] MEDS ORDERED: PROTPAK PO (10:58)
[2019-05-01] MEDS ORDERED: CIDA500T2 PO (11:11)
[2019-05-01] MEDS ORDERED: KP F1200 PO (11:11)
[2019-05-01] MEDS ORDERED: IRON1TAB2 PO (11:11)
--- NOTE | 2019-05-02 13:46 | DS.PDOC ---
Discharge Summary General Date of Admission Apr 14, 2019 at 13:34 Date of Discharge 04/18/19 Attending Physician: FRANCISCO MOSHER MD Discharge Summary PROCEDURES PERFORMED DURING STAY: None. ADMITTING DIAGNOSES: 1. Lower GI bleed, pancolitis. Anemia DISCHARGE DIAGNOSES: 1. Lower GI bleed. Pancolitis, anemia large internal hemorrhoids. COMPLICATIONS/CHIEF COMPLAINT: Gi Bleeding. HISTORY OF PRESENT ILLNESS: 84 years old white female with past medical history of hypertension, hypothyroidism, GERD, status post hysterectomy, was in her usual state of health until about yesterday when she had 1 large polyp BM with bright red colored blood and subsequently after the BM. She passed out and was found by her . Patient just complaining of dizziness. Also complaining of left upper quadrant pain which is intermittent intensity of 6/10 discomfort in nature, not associated with any other symptoms not relieved with any medication and not exacerbated by our moment eating. Patient was found to have a hemoglobin of 5.81 unit of PRBC was ordered to be transfused in ED and we'll called in to admit patient for further workup. HOSPITAL COURSE: GI BLEED Most likely lower GI in nature, could be diverticular bleed versus IBD Patient's hemoglobin stable, etc. Patient had a EGD and colonoscopy done which were essentially negative, did not show any source of active bleeding, but did show a large internal hemorrhoids Patient remained stable started tolerating oral feeding. Hemoglobin was stable and she was discharged back home. Follow with Dr. Cintron as an outpatient in one week Syncope 85 years old white female with past medical history of hypertension, hypothyroidism, GERD. She presented with chief complaints of 3 large bright red blood per rectum episodes followed by syncope. Syncope, most likely secondary to severe anemia secondary to GI bleed Patient will be admitted to PCU with telemetry monitoring IV fluids normal saline 150 mL per hour Bed rest with bathroom privileges DVT prophylaxis with bilateral SCDs Monitor vital signs, intake and output May-colitis Official report is still pending, but as per Dr. Chauhan CT abdomen and pelvis shows pancolitis Etiology is unknown patient did had a colonoscopy done about 7-10 years ago at [place] and was within normal limits Resolved while patient was in inpatient. Further workup as an outpatient with Dr. Cintron Anemia Secondary to acute blood loss secondary to lower GI bleed H&H in a.m. stable at the present time Hypothyroid Chronic Meds are on hold while patient was nothing by mouth but will restart it HTN Remained stable on by mouth meds GERD Chronic On Protonix DISCHARGE MEDICATIONS: Please see below. ALLERGIES: Please see below. PHYSICAL EXAMINATION ON DISCHARGE: VITAL SIGNS: Please see below. GENERAL: Within normal limits HEENT: PERRLA NECK: Supple CARDIOVASCULAR EXAMINATION: S1, S2, regular RESPIRATORY EXAMINATION: Clear to A&P ABDOMINAL EXAMINATION: Benign EXTREMITIES: No clubbing, cyanosis, edema SKIN: Within normal limits NEUROLOGICAL EXAMINATION: . No focal motor sensory deficit PSYCHIATRIC EXAMINATION: Normal LABORATORY DATA: Please see below. IMAGING: CT abdomen and pelvis:1. Pancolitis without signs of diverti culosis/diverticulitis, abscess, perforation or free air. There is increased thickening of the colon wall at the hepatic flexure and proximal right colon that will need followup. I cannot exclude mucosal lesions of air or neoplasm. 2. Small bowel loops fluid-filled but not abnormally dilated. However the distal small bowel loops and terminal ileum do suggest some wall thickening and enteritis. 3. No abdominal or pelvic ascites, adenopathy or mass. 4. Gallbladder without calcified stone or mass. The kidneys, other abdominal solid organs all intact. PROGNOSIS: ACTIVITY: As tolerated. DIET: As tolerated DISCHARGE PLAN: [All over. Dr. Cintron's in one week DISPOSITION: 01 Home, Self-Care. DISCHARGE INSTRUCTIONS: 1. As per discharge instruction. ITEMS TO FOLLOWUP ON ON OUTPATIENT: 1. Follow with Dr. Cintron in one week. DISCHARGE CONDITION: Stable. TIME SPENT ON DISCHARGE: 35 minutes. Discharge Medications Scheduled Epinephrine (Epipen 2-Liam) 0.3 Mg/0.3 Ml Auto.injct, 1 SYRINGE IM ONCE Ferrous Sulfate (Iron) 325 Mg Tablet, 1 TAB PO DAILY, (Reported) Fish Oil/Dha/Epa (Fish Oil 1,200 mg Fish Oil) 1 Each Capsule, 1 CAP PO DAILY, (Reported) Glucosamine/Chondr Francis A Sod (Cidaflex Tablet) 1 Each Tablet, 1 TAB PO DAILY, (R eported) Levothyroxine Sodium (Levothyroxine Sodium) 75 Mcg Tablet, 75 MCG PO DAILY, (Reported) Lisinopril (Lisinopril) 40 Mg Tablet, 40 MG PO DAILY, (Reported) Metoprolol Tartrate (Metoprolol Tartrate) 25 Mg Tablet, 25 MG PO DAILY, (Reported) Metoprolol Tartrate (Metoprolol Tartrate) 25 Mg Tablet, 50 MG PO QHS, (Reported) Pantoprazole Sodium (Protonix) 40 Mg , 40 MG PO DAILY Allergies Coded Allergies: No Known Drug Allergies (Verified Allergy, Unknown, 03/15/19) FRANCISCO MOSHER MD May 02, 2019 13:46
== END 2019-04-18 12:00 | disposition home or self-care (01) | DRG 378 ==
LOC: M ED 08:24 → M ED INP 13:34 → M PCU 04-15 14:40
PROVIDERS: ADMIT Internal Medicine; ATTEND Internal Medicine
PROC: 0DBH8ZX Excision of Cecum, Via Natural or Artificial Opening Endoscopic, Diagnostic (ICD-10-PCS; 2019-04-17)
PROC: 0DBK8ZX Excision of Ascending Colon, Via Natural or Artificial Opening Endoscopic, Diagnostic (ICD-10-PCS; 2019-04-17)
PROC: 0DJ08ZZ Inspection of Upper Intestinal Tract, Via Natural or Artificial Opening Endoscopic (ICD-10-PCS; principal; 2019-04-17 13:45)
DX: K57.91 Diverticulosis of intestine, part unspecified, without perforation or abscess with bleeding (principal); D62 Acute posthemorrhagic anemia; K51.00 Ulcerative (chronic) pancolitis without complications; R55 Syncope and collapse; K64.0 First degree hemorrhoids; K58.9 Irritable bowel syndrome, unspecified; K57.30 Diverticulosis of large intestine without perforation or abscess without bleeding; D12.2 Benign neoplasm of ascending colon; E03.9 Hypothyroidism, unspecified; I10 Essential (primary) hypertension; K21.9 Gastro-esophageal reflux disease without esophagitis; Z79.899 Other long term (current) drug therapy; Z90.710 Acquired absence of both cervix and uterus

== ENCOUNTER → 2019-05-07 | Outpatient (REF) | payer MEDICARE ==
[~2019-05-07] MED LIST changes: +CIDA500T2 PO; +COLA100C5 PO; +ENOX80IN3 SC; +FISH1000 PO; +FLAG500T PO; +FOLFOX; +GENTLE IRON PO; +GNP45TAB2 PO; +HYDR-4571 PO; +IRON1TAB2 PO; +KP F1200 PO; +LEVO88TA3 PO; +LIDO2.5C15; +LOVE0.4I2 SC; +METO1TAB32 PO; +METO25TA4 PO; +NEOM500T PO; +ONDA8TAB10 PO; +PROBCAP14 PO; +PROC10TA4 PO; +PROTPAK PO; +RISATAB3 PO; +SYST1SOL OU; +[UNRECOGNIZED DRUG - CODE] PO; +[UNRECOGNIZED DRUG - MIXTURE]
[2019-05-07 14:26] LABS: PROTHROMBIN TIME 12.9 SECONDS (11.8-14.0)
[2019-05-07 14:27] LABS: PARTIAL THROMBOPLASTIN TIME 32.6 SECONDS (25.0-38.4)
[2019-05-07 14:44] LABS: BASO # 0.1 10^3/uL (0.0-0.2); BASO % 0.6 % (0.0-1.0); EOS # 0.2 10^3/uL (0.0-0.5); EOS % 2.3 % (0.0-3.0); HEMATOCRIT 38.1 % (36.0-47.0); LYMPH # 2.7 10^3/uL (1.5-5.0); LYMPH % 26.3 % (24.0-44.0); MEAN CORPUSCULAR HEMOGLOBIN 25.6 pg (27.0-33.0); MEAN CORPUSCULAR HGB CONC 31.5 g/dl (32.0-36.5); MEAN CORPUSCULAR VOLUME 81.2 fl (80.0-96.0); MONO # 1.1 10^3/uL (0.0-0.8); MONO % 10.6 % (0.0-5.0); NEUTROPHILS % 59.6 % (36.0-66.0); PLATELET COUNT, AUTOMATED 508 10^3/uL (150-450); RED BLOOD COUNT 4.69 10^6/uL (4.00-5.40); WHITE BLOOD COUNT 10.1 10^3/uL (4.0-10.0)
[2019-05-07 14:54] LABS: BILIRUBIN,TOTAL 0.4 MG/DL (0.2-1.0); CALCIUM LEVEL 9.3 MG/DL (8.8-10.2); CREATININE FOR GFR 1.01 MG/DL (0.55-1.30); FREE T4 1.24 NG/DL (0.76-1.46); GLOMERULAR FILTRATION RATE 55.9 (>32); MAGNESIUM LEVEL 2.2 MG/DL (1.8-2.4); POTASSIUM SERUM 4.6 MEQ/L (3.5-5.1); THYROID STIMULATING HORMONE 8.51 uIU/ML (0.358-3.740); TOTAL PROTEIN 6.3 GM/DL (6.4-8.2)
== END ==
LOC: M SFHCPLAZ 11:26
PROVIDERS: ATTEND Family Medicine
DX: D50.9 Iron deficiency anemia, unspecified (principal); E03.9 Hypothyroidism, unspecified; C18.2 Malignant neoplasm of ascending colon

== ENCOUNTER 2019-05-09 09:05 | Inpatient (IN) | payer MEDICARE ==
[~2019-05-09] VITALS: Ht 165.1 cm; Wt 53.0 kg
[~2019-05-09 09:05] MED LIST changes: -COLA100C5 PO; -ENOX80IN3 SC; +ERTAPENEM SODIUM 1 GM in NS MINI-BAG PLUS 50 ML IV ONE; -FISH1000 PO; -FLAG500T PO; -FOLFOX; -GENTLE IRON PO; -GNP45TAB2 PO; -HYDR-4571 PO; -LEVO88TA3 PO; -LIDO2.5C15; +LIDOCAINE 1% MDV 20ML VIAL SQ PRN; +LIDOCAINE 2% INJ 100 MG/5 ML SDV (FOR ANES.) As Ordered ONE; -LOVE0.4I2 SC; +LR 1,000 ML IV ONE; -METO1TAB32 PO; -METO25TA4 PO; -NEOM500T PO; -ONDA8TAB10 PO; +ONDANSETRON 4MG/2ML VIAL (J2405) As Ordered ONE; -PROBCAP14 PO; -PROC10TA4 PO; +PROPOFOL 200 MG/20 ML VIAL As Ordered ONE; -RISATAB3 PO; +ROCURONIUM BROMIDE 50 MG/5 ML VIAL As Ordered ONE; -SYST1SOL OU; -[UNRECOGNIZED DRUG - CODE] PO; -[UNRECOGNIZED DRUG - MIXTURE]; +dexameTHASONE 4 MG/ML 1ML VIAL (J1100) As Ordered ONE
[2019-05-09] MEDS ORDERED: NEOM500T PO (09:41)
[2019-05-09] MEDS ORDERED: FLAG500T PO (09:41)
[2019-05-09] MEDS ORDERED: fentaNYL 250 MCG/5 ML INJECTION (J3010) As Ordered ONE (12:37)
[2019-05-09] MEDS ORDERED: BUPIVACAINE/EPIN 0.25% 30 ML VIAL As Ordered ONE (12:40)
[2019-05-09] MEDS ORDERED: ACETAMINOPHEN 1000MG 100ML IV BTL (OFIRMEV) (J0131 PER 10MG) As Ordered ONE (13:24)
[2019-05-09] MEDS ORDERED: SUGAMMADEX SODIUM 500 MG/5 ML VIAL (BRIDION) As Ordered ONE (13:29)
[2019-05-09] MEDS ORDERED: KETOROLAC 60 MG/2 ML VIAL (J1885) As Ordered ONE (13:30)
[2019-05-09] MEDS ORDERED: ROCURONIUM BROMIDE 50 MG/5 ML VIAL As Ordered ONE (15:26)
[2019-05-09] MEDS ORDERED: PHENYLephrine HCL 500 MCG/5 ML (100MCG/ML) SYRINGE (J2370) As Ordered ONE (15:36)
[2019-05-09] MEDS ORDERED: HYDROmorphone HCL 2 MG/ML 1ML VIAL (J1170) As Ordered ONE (15:39)
[2019-05-09] MEDS ORDERED: METOPROLOL 5 MG/5 ML VIAL As Ordered ONE (15:44)
[2019-05-09] MEDS ORDERED: fentaNYL 100 MCG/2 ML INJECTION (J3010) IV PRN ×2 (17:30→19:15)
[2019-05-09] MEDS ORDERED: HYDROMORPHONE HCL 0.5 MG/ 0.5 ML SYRINGE (J1170 PER 1) IV PRN ×2 (17:30→19:15)
[2019-05-09] MEDS ORDERED: ONDANSETRON 4MG/2ML VIAL (J2405) IV PRN ×3 (17:30→19:15)
[2019-05-09] MEDS ORDERED: LR 1,000 ML IV SCH ×2 (17:30→19:15)
[2019-05-09] MEDS ORDERED: PERCOCET 5MG/325MG TAB PO PRN ×2 (17:30→19:15)
[2019-05-09] MEDS ORDERED: ACETAMINOPHEN TAB 650MG DOSE (2X325MG) PO PRN (17:30)
[2019-05-09] MEDS: KCL 20MEQ IN D5/0.45NS 1000ML 1,000 ML IV SCH (18:40)
[2019-05-09 18:45] VITALS: BP 109/60
[2019-05-09 19:46] VITALS: BP 121/63
[2019-05-09 20:46] VITALS: BP 120/63
[2019-05-09] MEDS: SENOKOT S TAB PO SCH (21:15)
[2019-05-09] MEDS: METOPROLOL TART 50 MG TAB PO SCH (21:15)
[2019-05-09 21:45] VITALS: BP 119/62
[2019-05-10 02:00] VITALS: BP 116/58
[2019-05-10] MEDS: KCL 20MEQ IN D5/0.45NS 1000ML 1,000 ML IV SCH ×3 (02:47→17:26)
[2019-05-10] MEDS: LEVOTHYROXINE 75MCG TABLET (0.075MG) PO SCH (05:39)
[2019-05-10 06:02] VITALS: BP 115/57
[2019-05-10 08:17] LABS: HEMATOCRIT 30.4 % (36.0-47.0); HEMOGLOBIN 9.3 g/dl (12.0-15.5); MEAN CORPUSCULAR HEMOGLOBIN 24.9 pg (27.0-33.0); MEAN CORPUSCULAR HGB CONC 30.6 g/dl (32.0-36.5); MEAN CORPUSCULAR VOLUME 81.3 fl (80.0-96.0); PLATELET COUNT, AUTOMATED 375 10^3/uL (150-450); RED BLOOD COUNT 3.74 10^6/uL (4.00-5.40); WHITE BLOOD COUNT 13.1 10^3/uL (4.0-10.0)
[2019-05-10 08:27] LABS: CALCIUM LEVEL 8.3 MG/DL (8.8-10.2); CREATININE FOR GFR 1.16 MG/DL (0.55-1.30); GLOMERULAR FILTRATION RATE 47.6 (>32); POTASSIUM SERUM 4.8 MEQ/L (3.5-5.1)
[2019-05-10] MEDS: SENOKOT S TAB PO SCH ×2 (08:45→20:07)
[2019-05-10] MEDS: PANTOPRAZOLE 40MG INJ (PROTONIX) (C9113) IV SCH (08:45)
[2019-05-10] MEDS: LISINOPRIL 40 MG TAB PO SCH (08:45)
[2019-05-10] MEDS: METOPROLOL TART 25 MG TABLET PO SCH (08:45)
[2019-05-10] MEDS: ENOXAPARIN 40 MG/0.4 ML SYRINGE (J1650) SC SCH (08:45)
[2019-05-10 10:00] VITALS: BP 113/55
[2019-05-10] MEDS: KETOROLAC 30 MG/ML VIAL (J1885) IV PRN ×2 (10:47→18:39)
--- NOTE | 2019-05-10 11:51 | IPNPDOC ---
Text Note Date of Service The patient was seen on 05/10/19. NOTE No acute events overnight. Pain is controlled. No flatus or BM yet. Denies na usea or emesis, and she has good urine output. VSSAF NAD abd - soft, TTP appropriate, incisions c/d/i, drain is serosanguinous labs - below A) 84y/o female s/p enbloc resection of right upper quadrant mass with rt hemicolectomy P) clq diet dc mehta dc ngt ambulate Bakari Louise DO VS,Fishbone, I+O VS, Fishbone, I+O Laboratory Tests 05/10/19 07:29 Red Blood Count 3.74 L, Mean Corpuscular Volume 81.3, Mean Corpuscular Hemoglobin 24.9 L, Mean Corpuscular Hemoglobin Concent 30.6 L, Red Cell Distribution Width 19.0 H, Calcium Level 8.3 L Vital Signs Date Time Temp Pulse Resp B/P (MAP) Pulse Ox O2 Delivery O2 Flow Rate FiO2 05/10/19 08:45 62 115/57 05/10/19 06:02 98.4 15 97 2.0 I&O- Last 24 Hours up to 6 AM 05/10/19 06:00 Intake Total 5175 ml Output Total 535 ml Balance 4640 ml YAIMA LOUISE DO May 10, 2019 11:51
[2019-05-10 13:52] VITALS: BP 113/55
--- NOTE | 2019-05-10 13:59 | RO ---
DATE OF PROCEDURE: 05/09/2019 PREOPERATIVE DIAGNOSIS: Right colon cancer. POSTOPERATIVE DIAGNOSIS: Right colon cancer with a large right upper quadrant abdominal mass. PROCEDURE: Robotic mobilization of the right colon followed by open en bloc resection of right upper quadrant mass with the right colon followed by a primary anastomosis of the terminal ileum to the mid transverse colon. SURGEON: Dr. Aurelio Louise MULTIFOCAL BUTTON GENERATOR: Dr. Garland who assisted with mobilization and resection of the abdominal mass as well as anastomosis. ANESTHESIA: General. ESTIMATED BLOOD LOSS: 100. COMPLICATIONS: None. INDICATIONS FOR PROCEDURE: The patient is an 84-year-old female who was in the hospital a couple of weeks ago with a GI bleed and found to have large polyp in her cecum as well as polyps in her descending colon that were positive for high-grade dysplasia. Recommendation was to proceed with robotic right hemicolectomy. Risks and benefits of the procedure not limited to, but including bleeding, infection, hernia formation, damage to surrounding structures, need for further surgery, and anastomotic leak were discussed in detail with the patient. Informed consent was obtained and the procedure was planned. PROCEDURE: The patient brought back to operating room seven after sufficient sedation, the abdomen was sterilely prepped and draped. Next, a time out was done to confirm proper patient and proper procedure. Following that, an incision made in left upper quadrant and Veress needle was inserted and the abdomen was insufflated at 15 mmHg. Next, the Veress needle was removed and an 8 mm robotic OptiVu port was used to gain access to the abdomen. Once the abdomen was entered, three more robotic ports were placed diagonal from the left upper quadrant to the right lower quadrant. The robot was then connected to the ports. Next, from the console the abdomen was examined starting from the cecum. The appendix was elevated superiorly and medially and the lateral attachments to the appendix were carefully taken down with sharp dissection followed by mobilization of the cecum. Once that was completed, the terminal ileum was identified. It was raised in the air. Adhesions to the pelvis were taken down with sharp dissection. The mesentery of the terminal ileum was then dissected with the scissors and then the terminal ileum was transected using the blue load 45 mm stapler. Once that was completed, dissection was completed proximally. However, there was a large mass that was encountered in the mesentery of the large intestine encompassing the hepatic flexure of the colon and the duodenum. It was so large that I was unable to dissect the rest of the ascending colon and transverse colon. Because of that, the robotic portion of procedure was aborted. Next, abdominal incision was made superior to the umbilicus. The abdomen was entered. The right side of the colon was identified. The gastrocolic ligament was taken down. Dissection was then carried towards the hepatic flexure until again the mass was encountered. I was able to dissect it free from the gallbladder and the liver. I was also able to transect through the middle of the transverse colon, again using a GELY blue load 75 mm stapler. Once this was completed, I continued to dissect through the mesentery of the large intestine around the entire ascending colon and hepatic flexure and continued to do so laterally as well. However, the mass could not be dissected free from the duodenum. Once I was able to circumferentially dissect it aside from the duodenum, an EGD was completed. Getting down into the second portion of duodenum, I did not visualize any intra-abdominal mass. Because of that, we decided to avoid doing a transection of the duodenum. Just using a 15 blade scalpel, I was able to shave the mass off of the anterior wall of the third portion of duodenum. After doing so, it did feel like there was some mass inside of the duodenum. However, due to the location, it was not amenable to surgical resection at this time. The rest of the mass in the colon was removed. A [id number] anastomosis was then done between the terminal ileum and the mid transverse colon using a GELY 75 blue load stapler. Once that was completed, some Tisseel was placed over the anastomosis as well as over the portion of duodenum where the mass was attached. Two clips were also placed on the mass for further identification. The abdomen was closed. A 19-[place] Tony drain was placed next to the anastomosis and brought out through the left lower quadrant incision. The fascia was reapproximated with two looped PDS sutures. Skin incisions were closed with audra. The abdomen was cleaned and dried, 4x4 and tape were applied thus ending the procedure.
[2019-05-10] MEDS ORDERED: ERTAPENEM SODIUM 1 GM in NS MINI-BAG PLUS 50 ML IV SCH (14:00)
[2019-05-10] MEDS: NORCO, ANEXSIA 5/325MG TABLET (HYDROcodone/ACETAMINOPHEN) PO PRN ×2 (15:48→20:07)
[2019-05-10] MEDS: METOPROLOL TART 50 MG TAB PO SCH (20:08)
[2019-05-10 22:00] VITALS: BP 152/75
[2019-05-11] MEDS: KETOROLAC 30 MG/ML VIAL (J1885) IV PRN ×2 (01:00→08:41)
[2019-05-11] MEDS: KCL 20MEQ IN D5/0.45NS 1000ML 1,000 ML IV SCH ×2 (03:44→08:41)
[2019-05-11] MEDS: LEVOTHYROXINE 75MCG TABLET (0.075MG) PO SCH (05:21)
[2019-05-11] MEDS: NORCO, ANEXSIA 5/325MG TABLET (HYDROcodone/ACETAMINOPHEN) PO PRN ×3 (05:22→20:39)
[2019-05-11 06:00] VITALS: BP 149/68
[2019-05-11 07:05] LABS: HEMATOCRIT 28.9 % (36.0-47.0); HEMOGLOBIN 8.9 g/dl (12.0-15.5); MEAN CORPUSCULAR HEMOGLOBIN 25.1 pg (27.0-33.0); MEAN CORPUSCULAR HGB CONC 30.8 g/dl (32.0-36.5); MEAN CORPUSCULAR VOLUME 81.4 fl (80.0-96.0); PLATELET COUNT, AUTOMATED 342 10^3/uL (150-450); RED BLOOD COUNT 3.55 10^6/uL (4.00-5.40); WHITE BLOOD COUNT 9.9 10^3/uL (4.0-10.0)
[2019-05-11 07:28] LABS: CALCIUM LEVEL 8.1 MG/DL (8.8-10.2); CREATININE FOR GFR 0.95 MG/DL (0.55-1.30); MAGNESIUM LEVEL 1.7 MG/DL (1.8-2.4); POTASSIUM SERUM 4.7 MEQ/L (3.5-5.1)
[2019-05-11] MEDS: LISINOPRIL 40 MG TAB PO SCH (08:38)
[2019-05-11] MEDS: SENOKOT S TAB PO SCH ×2 (08:38→20:39)
[2019-05-11] MEDS: METOPROLOL TART 25 MG TABLET PO SCH (08:39)
[2019-05-11] MEDS: ENOXAPARIN 40 MG/0.4 ML SYRINGE (J1650) SC SCH (08:40)
[2019-05-11] MEDS: PANTOPRAZOLE 40MG INJ (PROTONIX) (C9113) IV SCH (08:40)
[2019-05-11 14:00] VITALS: BP 147/71
[2019-05-11] MEDS: METOPROLOL TART 50 MG TAB PO SCH (20:39)
[2019-05-11 22:00] VITALS: BP 122/62
[2019-05-12] MEDS: NORCO, ANEXSIA 5/325MG TABLET (HYDROcodone/ACETAMINOPHEN) PO PRN ×4 (05:29→21:39)
[2019-05-12] MEDS: LEVOTHYROXINE 75MCG TABLET (0.075MG) PO SCH (05:30)
[2019-05-12 06:00] VITALS: BP 153/68
[2019-05-12 06:52] LABS: MEAN CORPUSCULAR HEMOGLOBIN 25.8 pg (27.0-33.0); MEAN CORPUSCULAR VOLUME 83.1 fl (80.0-96.0); PLATELET COUNT, AUTOMATED 358 10^3/uL (150-450); RED BLOOD COUNT 3.49 10^6/uL (4.00-5.40); WHITE BLOOD COUNT 9.2 10^3/uL (4.0-10.0)
[2019-05-12 07:19] LABS: BLOOD UREA NITROGEN 7 MG/DL (7-18); CALCIUM LEVEL 8.3 MG/DL (8.8-10.2); CARBON DIOXIDE LEVEL 24 MEQ/L (21-32); CHLORIDE LEVEL 110 MEQ/L (98-107); GLOMERULAR FILTRATION RATE > 60.0 (>32); GLUCOSE, FASTING 79 MG/DL (70-100); MAGNESIUM LEVEL 1.7 MG/DL (1.8-2.4); POTASSIUM SERUM 4.4 MEQ/L (3.5-5.1); SODIUM LEVEL 141 MEQ/L (136-145)
[2019-05-12] MEDS: PANTOPRAZOLE 40MG INJ (PROTONIX) (C9113) IV SCH (08:05)
[2019-05-12] MEDS: LISINOPRIL 40 MG TAB PO SCH (08:06)
[2019-05-12] MEDS: METOPROLOL TART 25 MG TABLET PO SCH (08:06)
[2019-05-12] MEDS: SENOKOT S TAB PO SCH ×2 (08:06→21:38)
[2019-05-12] MEDS: ENOXAPARIN 40 MG/0.4 ML SYRINGE (J1650) SC SCH (08:07)
--- NOTE | 2019-05-12 12:23 | IPNPDOC ---
Subjective General Date/Time Seen The patient was seen on 05/12/19 at 12:20. Subject Chief Complaint/History The patient is a 84-year-old female admitted with a reason for visit of Right Colon Cancer. Looks very comfortable, reports she ambulates the hallways. Denies any severe abdominal discomfort, nausea. Tolerated full liquids. No BMS yet Current Medications Current Medications Current Medications Medications (Trade) Dose Ordered Sig/Sharon Route PRN Reason Start Time Stop Time Status Last Admin Dose Admin Acetaminophen (Tylenol Tab) 650 mg Q4HP PRN PO MILD PAIN or TEMP > 101 05/09/19 17:30 05/10/19 05:40 Acetaminophen/ Hydrocodone Bitart ([place], Anexsia 5/325) 1 tab Q4HP PRN PO MODERATE PAIN (PS 5-7) 05/09/19 17:30 05/12/19 11:23 Enoxaparin Sodium (Lovenox) 40 mg DAILY SC 05/10/19 09:00 05/12/19 08:07 Ertapenem 1 gm/ Sodium Chloride 50 ml @ 100 mls/hr Q24H IV 05/10/19 14:00 05/11/19 05:00 DC 05/10/19 14:20 Fentanyl Citrate (Sublimaze) 25 mcg Q5MP PRN IV MODERATE PAIN (PS 4-7) 05/09/19 17:30 05/09/19 18:30 DC Fentanyl Citrate (Sublimaze) 25 mcg Q5MP PRN IV MODERATE PAIN (PS 4-7) 05/09/19 19:15 05/09/19 20:15 DC Hydromorphone HCl (Dilaudid) 0.2 mg Q5MP PRN IV MODERATE/SEVERE PAIN (PS 5-10) 05/09/19 17:30 05/09/19 18:30 DC Hydromorphone HCl (Dilaudid) 0.2 mg Q5MP PRN IV MODERATE/SEVERE PAIN (PS 5-10) 05/09/19 19:15 05/09/19 20:15 DC Ketorolac Tromethamine (ToRADol) 15 mg Q6HP PRN IV MILD/MODERATE PAIN (PS 1-7) 05/09/19 17:30 05/14/19 17:29 05/11/19 08:41 Lactated Ringer's 1,000 ml @ 100 mls/hr Q10H IV 05/09/19 17:30 05/09/19 18:30 DC 05/09/19 17:01 Lactated Ringer's 1,000 ml @ 100 mls/hr Q10H IV 05/09/19 19:15 05/09/19 20:15 DC Levothyroxine Sodium (Synthroid) 75 mcg DAILY@0600 PO 05/10/19 06:00 05/12/19 05:30 Lidocaine HCl (LIDOCAINE 1% MDV 20ml) 0.1 ml ONCE PRN SQ DISCOMFORT BEFORE IV START 05/09/19 06:00 05/09/19 17:20 DC Lisinopril (Prinivil) 40 mg DAILY PO 05/10/19 09:00 05/12/19 08:06 Metoprolol Tartrate (Lopressor) 25 mg DAILY PO 05/10/19 09:00 05/12/19 08:06 Metoprolol Tartrate (Lopressor) 50 mg QHS PO 05/09/19 21:00 05/11/19 20:39 Ondansetron HCl (ZOFRAN INJection) 4 mg Q4HP PRN IV NAUSEA OR VOMITING 05/09/19 17:30 05/09/19 18:30 DC 05/09/19 18:20 Ondansetron HCl (ZOFRAN INJection) 4 mg Q4HP PRN IV NAUSEA OR VOMITING 05/09/19 19:15 05/09/19 20:15 DC Ondansetron HCl (ZOFRAN INJection) 4 mg Q6HP PRN IV NAUSEA OR VOMITING 05/09/19 17:30 Oxycodone/ Acetaminophen (Percocet 5mg/ 325mg Tablet) 1 tab ASDIRECTED PRN PO MILD/MODERATE PAIN (PS 1-7) 05/09/19 17:30 05/09/19 18:30 DC Oxycodone/ Acetaminophen (Percocet 5mg/ 325mg Tablet) 1 tab ASDIRECTED PRN PO MILD/MODERATE PAIN (PS 1-7) 05/09/19 19:15 05/09/19 20:15 DC Pantoprazole Sodium (Protonix) 40 mg DAILY IV 05/10/19 09:00 05/12/19 08:05 Potassium Chloride/Dextrose/ Sod Cl 1,000 ml @ 125 mls/hr Q8H IV 05/09/19 17:23 05/11/19 14:05 DC 05/11/19 08:41 Senna/Docusate Sodium (Senokot S) 1 tab BID PO 05/09/19 21:00 05/12/19 08:06 Allergies Coded Allergies: bee venom protein (honey bee) (Verified Adverse Reaction, Mild, vomitting/diarrhea, 05/09/19) Objective Physical Examination Examination GENERAL APPEARANCE:comfortable. SKIN: Warm and moist. HEENT: Normocephalic, atraumatic. [place] palpebral conjunctiva, anicteric sclerae. Lips and mucosa appear moist. NECK: Supple, no thyromegaly. No obvious jugular venous distention. LUNGS: Clear to auscultation bilaterally. No wheezing appreciated. HEART: No chest wall abnormalities. Regular rate and rhythm with no murmurs appreciated. ABDOMEN: Abdomen is slight round, soft, nondistended, slightly tympanitic. midline incision with audra intact, clean, dry, CHALO drain light serosanguenous. EXTREMITIES: Extremities have no deformities. No edema identified. Vital Signs Vital Signs Date Time Temp Pulse Resp B/P (MAP) Pulse Ox O2 Delivery O2 Flow Rate FiO2 05/12/19 11:53 18 05/12/19 08:06 71 153/68 05/12/19 06:00 98.3 95 05/10/19 06:02 2.0 I&Os I&O- Last 24 Hours up to 6 AM 05/12/19 06:00 Intake Total 4170 ml Output Total 2420 ml Balance 1750 ml Laboratory Data Labs 24H Laboratory Tests 2 05/12/19 06:01: Nucleated Red Blood Cells % (auto) 0.0, Anion Gap 7L, Glomerular Filtration Rate > 60.0, Blood Urea Nitrogen 7, Creatinine 0.90, Sodium Level 141, Potassium Level 4.4, Chloride Level 110H, Carbon Dioxide Level 24, Calcium Level 8.3L, Magnesium Level 1.7L CBC/BMP Laboratory Tests 05/12/19 06:01 Red Blood Count 3.49 L, Mean Corpuscular Volume 83.1, Mean Corpuscular Hemoglobin 25.8 L, Mean Corpuscular Hemoglobin Concent 31.0 L, Red Cell Distribution Width 19.5 H, Calcium Level 8.3 L Impression POD3 open right colectomy for colorectal cancer She looks to be doing very well though she has not had any bm and not sure if she is passing flatus at this point. Her abdomen remains relatively flat and she is tolerating full liquids. I will advance her to soft diet and give her a dose of MOM. She says she uses nitroglycerin supp at home so we will also give her that. I anticipate she will continue to feel better once she has good bowel function. Plan / VTE VTE Prophylaxis Ordered?: Yes DAYANNA WEAVER MD May 12, 2019 12:23
[2019-05-12] MEDS ORDERED: MOM 30ML SUSPENSION UDC PO ONE (13:00)
[2019-05-12] MEDS ORDERED: GLYCERIN ADULT SUPP PR ONE (14:00)
[2019-05-12] MEDS: METOPROLOL TART 50 MG TAB PO SCH (21:38)
[2019-05-12 22:00] VITALS: BP 131/65
[2019-05-13] MEDS: NORCO, ANEXSIA 5/325MG TABLET (HYDROcodone/ACETAMINOPHEN) PO PRN ×2 (04:04→08:30)
[2019-05-13] MEDS: LEVOTHYROXINE 75MCG TABLET (0.075MG) PO SCH (05:41)
[2019-05-13 06:00] VITALS: BP 129/73
[2019-05-13 06:10] LABS: HEMATOCRIT 29.5 % (36.0-47.0); HEMOGLOBIN 9.1 g/dl (12.0-15.5); MEAN CORPUSCULAR HEMOGLOBIN 25.6 pg (27.0-33.0); MEAN CORPUSCULAR HGB CONC 30.8 g/dl (32.0-36.5); MEAN CORPUSCULAR VOLUME 83.1 fl (80.0-96.0); PLATELET COUNT, AUTOMATED 349 10^3/uL (150-450); RED BLOOD COUNT 3.55 10^6/uL (4.00-5.40); WHITE BLOOD COUNT 8.2 10^3/uL (4.0-10.0)
[2019-05-13 06:33] LABS: BLOOD UREA NITROGEN 8 MG/DL (7-18); CALCIUM LEVEL 8.4 MG/DL (8.8-10.2); CARBON DIOXIDE LEVEL 27 MEQ/L (21-32); CHLORIDE LEVEL 106 MEQ/L (98-107); CREATININE FOR GFR 0.89 MG/DL (0.55-1.30); GLOMERULAR FILTRATION RATE > 60.0 (>32); GLUCOSE, FASTING 90 MG/DL (70-100); MAGNESIUM LEVEL 1.9 MG/DL (1.8-2.4); POTASSIUM SERUM 4.3 MEQ/L (3.5-5.1); SODIUM LEVEL 139 MEQ/L (136-145)
[2019-05-13] MEDS ORDERED: HYDR-4571 PO (07:36)
[2019-05-13] MEDS: SENOKOT S TAB PO SCH ×2 (08:28→08:31)
[2019-05-13 08:29] VITALS: BP 136/70
[2019-05-13] MEDS: LISINOPRIL 40 MG TAB PO SCH (08:29)
[2019-05-13] MEDS: METOPROLOL TART 25 MG TABLET PO SCH (08:29)
[2019-05-13] MEDS: ENOXAPARIN 40 MG/0.4 ML SYRINGE (J1650) SC SCH (08:30)
[2019-05-13] MEDS: PANTOPRAZOLE 40MG INJ (PROTONIX) (C9113) IV SCH (08:30)
--- NOTE | 2019-05-14 07:36 | DSES ---
DATE OF ADMISSION: 05/09/2019 DATE OF DISCHARGE: 05/13/2019 ADMISSION DIAGNOSIS: Right colon cancer. DISCHARGE DIAGNOSIS: Right colon cancer with right abdominal mass. HOSPITAL COURSE: The patient is an 84-year-old female who came in on the for elective robotic right hemicolectomy due to large polyps and a possible carcinoma inside of a polyp in the ascending colon. Intraoperatively, she was found to have a mass near the hepatic flexure extending outside of the colon involving the duodenum. It was unknown whether this mass arose from the abdominal wall, the duodenum or the colon itself. She had en bloc resection of the mass along with the right colon. She also ended up with a primary anastomosis and had a drain left in place. Postoperatively, she has done well. Her pain has been well-controlled. She had no problems with nausea, vomiting or urine output. Lilly catheter and NG tube were removed postop day #1. She was up ambulating in the halls and tolerating a clear liquid diet. Her diet was slowly advanced over the weekend. The only thing keeping her here an extra day was waiting for a bowel movement. However, last night, she had two large bowel movements that were soft. She feels good. She is still tolerating a diet. Her pain is controlled. Labs are all normal. Plan is for discharge home today. She will follow up with me in the office next to get her audra out. She also will call me next Monday to discuss her pathology. We should finally have her results by then. I gave her some [place] to go home with for pain. All of her questions are answered.
== END 2019-05-13 09:50 | disposition home or self-care (01) | DRG 331 ==
LOC: M OR 09:05 → M MS5PR 18:35
PROVIDERS: ADMIT Surgery; ATTEND Surgery
PROC: 8E0W4CZ Robotic Assisted Procedure of Trunk Region, Percutaneous Endoscopic Approach (ICD-10-PCS; 2019-05-09)
PROC: 0DBK4ZZ Excision of Ascending Colon, Percutaneous Endoscopic Approach (ICD-10-PCS; principal; 2019-05-09 11:15)
DX: C18.2 Malignant neoplasm of ascending colon (principal); I10 Essential (primary) hypertension; K21.9 Gastro-esophageal reflux disease without esophagitis; E03.9 Hypothyroidism, unspecified

== ENCOUNTER → 2019-06-04 | Outpatient (CLI) | payer MEDICARE ==
[~2019-06-04] MED LIST changes: -ERTAPENEM SODIUM 1 GM in NS MINI-BAG PLUS 50 ML IV ONE; +FISH1000 PO; +FLAG500T PO; +GNP45TAB2 PO; +HYDR-4571 PO; +LEVO88TA3 PO; -LIDOCAINE 1% MDV 20ML VIAL SQ PRN; -LIDOCAINE 2% INJ 100 MG/5 ML SDV (FOR ANES.) As Ordered ONE; -LR 1,000 ML IV ONE; +METO1TAB32 PO; +NEOM500T PO; +ONDA8TAB7 PO; -ONDANSETRON 4MG/2ML VIAL (J2405) As Ordered ONE; +PROC10TA4 PO; -PROPOFOL 200 MG/20 ML VIAL As Ordered ONE; -ROCURONIUM BROMIDE 50 MG/5 ML VIAL As Ordered ONE; -dexameTHASONE 4 MG/ML 1ML VIAL (J1100) As Ordered ONE
--- NOTE | 2019-06-04 15:42 | REP ---
PET/CT: History: Staging colon carcinoma. The patient is status post robotic right hemicolectomy. One extra mural tumor deposit. Clinical stage III C. Comparisons: Comparison CT abdomen and pelvis April 14, 2019. TECHNIQUE: 47 minutes following the intravenous injection of a 8.23 mCi dose of F-18 FDG, three-dimensional PET scintigraphy is acquired from the skull base to the proximal thighs. Triplanar noncontrast CT scanning is acquired through the same anatomic range for attenuation correction, and image registration with scan parameters optimized to minimize radiation exposure to the patient. PET scintigraphy and CT datasets were fused and displayed on a workstation with multiplanar and projection display capability. PET/CT Findings: Head and neck region imaging shows hypermetabolic uptake diffusely through the thyroid lobes bilaterally, maximum standard uptake value 6.18 on the right and 5.50 on the left. This is suggestive of chronic thyroiditis. There is no evidence of hypermetabolic lymphadenopathy. Head and neck soft tissues are otherwise unremarkable. No hypermetabolic pulmonary parenchymal focus is seen. There is no hypermetabolic hilar or mediastinal adenopathy. In the abdomen and pelvis, there is normal hepatic, splenic, gastrointestinal, and genitourinary FDG distribution. There is some postoperative FDG accumulation in the anterior abdominal wall periumbilical region which is not quite hypermetabolic. There is uptake adjacent to two surgical clips in the right mid abdomen. This is considerably higher than background gastrointestinal mucosal uptake. Maximum standard uptake value in this region in or adjacent to the descending duodenum is 12.32. No definite mass is seen on the accompanying CT study. No other suspicious hypermetabolic uptake is seen in the abdomen or pelvis. Impression: There is a soft tissue focus of hypermetabolic uptake in or adjacent to the descending duodenum, adjacent to some surgical clips in the right mid abdomen, SUV 12.3. This is more avid than background gastrointestinal mucosal uptake. It is difficult to exclude residual disease. Findings consistent with chronic thyroiditis. No other abnormal hypermetabolic uptake. Electronically Signed by Alexander Phipps MD 06/04/2019 04:56 P
== END ==
LOC: M PLARAD 09:29
PROVIDERS: ATTEND Nurse Practitioner Family
DX: C18.2 Malignant neoplasm of ascending colon (principal); K31.9 Disease of stomach and duodenum, unspecified
CPT/HCPCS: 78815; A9552

== ENCOUNTER → 2019-06-07 | Outpatient (CLI) | payer MEDICARE ==
[~2019-06-07] MED LIST changes: +ISOVUE-370 76% 100ML VIAL (Q9967) As Ordered ONE; +LOVE0.4I2 SC
--- NOTE | 2019-06-07 13:02 | REP ---
CT of the chest with IV contrast for staging of colon carcinoma: There are no other chest CT studies. There is a subtle right upper lobe ground-glass density measuring 8 mm on image 41. There is a 4 mm right upper lobe lung nodule on image 45. No other lung nodules or masses are identified. There are no infiltrates. There are no pleural effusions. There is a borderline enlarged right hilar node measuring 9 mm. There is no left hilar adenopathy. There is no mediastinal adenopathy. There is no axillary adenopathy. The thoracic aorta is unremarkable. The cardiac size is normal. There is occasional calcified atheroma in the coronary arteries. There is no pericardial effusion. The visualized upper abdominal contents are unremarkable except for a 50 mm hypodensity at the upper pole of the spleen, unchanged from the abdomen CT of 04/04/2019, likely a splenic cyst or hematoma. Impression: The there is a 4 mm right upper lobe lung nodule on image 45. There is an 8 mm ground-glass density in the right upper lobe on image 41. There is a borderline enlarged right hilar node. No other adenopathy. There is a 15 mm hypodensity in the splenic upper pole, likely an old hematoma or cyst. Electronically Signed by Aurelio Sweeney MD 06/07/2019 12:53 P
== END ==
LOC: M RAD 10:48
PROVIDERS: ATTEND Nurse Practitioner Family
DX: C18.9 Malignant neoplasm of colon, unspecified (principal)
CPT/HCPCS: 71260; Q9967

== ENCOUNTER → 2019-06-10 | Outpatient (CLI) | payer MEDICARE ==
[~2019-06-10] MED LIST changes: -ISOVUE-370 76% 100ML VIAL (Q9967) As Ordered ONE; +LIDOCAINE 1% MDV 20ML VIAL As Ordered ONE; -LOVE0.4I2 SC; +MIDAZOLAM INJ 2 MG/2 ML VIAL (J2250) As Ordered ONE; +ceFAZolin 1GM INJ (J0690 PER 500MG) As Ordered ONE; +diphenhydrAMINE INJ 50MG/ML VIAL (J1200) As Ordered ONE; +fentaNYL 100 MCG/2 ML INJECTION (J3010) As Ordered ONE
--- NOTE | 2019-06-10 11:31 | IRHP ---
[facility] IR Pre-Procedure H & P General Date of Service: Jun 10, 2019 Procedure: Same Day Surgery Interval History and Physical I have seen the patient and reviewed last H & P performed within 30 days. There is no significant interval change. History of Present Illness Chief Complaint The patient is a 84-year-old female admitted with a reason for visit of Colon Ca. PRE-PROCEDURE DIAGNOSIS: colon ca HEART: normal rate. LUNGS: normal breathing at rest. ASA Classification ASA Classification: II-Mild systemic disease Mallampati Score: I NPO: Yes Problems with prior sedation: No Obstructive Sleep Apnea: No Plan moderate sedation Allergies Coded Allergies: bee venom protein (honey bee) (Verified Adverse Reaction, Mild, vomitting/diarrhea, 05/09/19) Home Medications Scheduled Epinephrine (Epipen 2-Liam), 1 SYRINGE IM ONCE Ferrous Sulfate, Dried (Iron), 25 MG PO DAILY, (Reported) Glucosamine/Chondr Francis A Sod (Cidaflex Tablet), 1 TAB PO DAILY, (Reported) Levothyroxine Sodium (Levothyroxine Sodium), 88 MCG PO DAILY, (Reported) Lisinopril (Lisinopril), 40 MG PO DAILY, (Reported) Metoprolol Succinate (Metoprolol Succinate), 25 MG PO TID, (Reported) Stanley-3 Fatty Acids/Fish Oil (Fish Oil 1,000 mg Capsule), 2,000 MG PO DAILY, (Reported) VS, I&O, 24H, Fishbone Vital Signs/I&O Vital Signs Date Time Temp Pulse Resp B/P (MAP) Pulse Ox O2 Delivery O2 Flow Rate FiO2 06/10/19 11:18 98 85 18 99 FRANCISCO MCFADDEN MD Jun 10, 2019 11:31
--- NOTE | 2019-06-10 12:30 | POST-OPPD ---
Postoperative Procedure Note Date Of Procedure: Jun 10, 2019 Time Of Procedure: 12:29 PREOPERATIVE DIAGNOSIS: colon ca POSTOPERATIVE DIAGNOSIS: colon ca FINDINGS: patent right IJ PROCEDURE: right IJ port. ready to use SURGEON: Mike ANESTHESIA: mod sed ESTIMATED BLOOD LOSS: < 5 ml COMPLICATIONS: none POSTOPERATIVE CONDITION: stable FRANCISCO MCFADDEN MD Jun 10, 2019 12:30
[2019-06-10 14:30] VITALS: BP 125/58
--- NOTE | 2019-06-10 15:07 | REP ---
IR Ultrasound and fluoroscopy-guided port placement. IR Ultrasound of the neck. IR Moderate sedation. Clinical information: Colon cancer . Physician: Dr. Mckeon. Procedure: The patient was advised of the benefits, risks, and alternatives of the procedure and informed consent was obtained. A time-out was performed with verification of the patient's name, MRN, site of procedure and type of procedure to be performed. The patient was positioned in the supine position on the angiographic table. The site was prepped and draped in the usual sterile fashion. Moderate sedation was performed by the physician including the presence of an independent trained observer who assisted and monitored the patient's level of consciousness and physiologic status. Following the administration of fentanyl and Versed , the physician spent 45 minutes of continuous face to face time with the patient. Ultrasound of the neck reveals a patent and compressible right internal jugular vein. A hot roll inspector radiograph reveals no gross abnormality. The neck and anterior chest wall were anesthetized with lidocaine. The right internal jugular vein was accessed using a microintroducer needle under ultrasound guidance, via a lateral approach. An 018 wire was advanced into the superior vena cava, the needle was removed and a microsheath was placed. An Amplatz wire was then passed into the inferior vena cava. An incision at the internal jugular vein access site and anterior chest wall were made using a scalpel. An incision was made at the anterior chest wall. A small pocket was created using a combination of blunt and sharp dissection. A tunneling device was then used to pass the catheter from the pocket to the neck puncture site. An 8-[place] Angio dynamics Smart power port was then positioned in the pocket. The catheter was then measured and cut. The introducer sheath was exchanged for a peel-away sheath. The catheter was passed through the peel-away sheath into the internal jugular vein and the peel-away sheath was removed. The port tip was positioned at at the cavoatrial junction. The port was then accessed with a Lucero needle. The port flushes and aspirates well. The puncture site in the neck was closed. The chest wall incision was then closed with 2-0 Vicryl and 4-0 Monocryl. Glue and Steri-Strips were applied. A sterile dressing was then applied. The patient tolerated the procedure well and was returned to the PRU in stable condition. Estimated blood loss: <5 ml. Complications: None. Conclusion: 1. Successful placement of an 8-[place] Angio dynamics Smart power port via the right internal jugular vein. The port is ready for immediate use. 2. Patient to follow up in IR clinic in 2 weeks. Thank you for this referral. Electronically Signed by Goldie Mckeon MD 06/10/2019 03:06 P
== END ==
LOC: M IRPRO 10:57
PROVIDERS: ATTEND Nurse Practitioner Family
DX: C18.9 Malignant neoplasm of colon, unspecified (principal); Z91.030 Bee allergy status; Z79.899 Other long term (current) drug therapy
CPT/HCPCS: 36561; 76937; 99152; 99153; C1769; C1788; C1894; J0690; J1200; J2250; J3010

== ENCOUNTER → 2019-06-18 | Outpatient (POV) | payer MEDICARE ==
[~2019-06-18] VITALS: Ht 160 cm; Wt 55.0 kg
[~2019-06-18] MED LIST changes: -LIDOCAINE 1% MDV 20ML VIAL As Ordered ONE; +LOVE0.4I2 SC; -MIDAZOLAM INJ 2 MG/2 ML VIAL (J2250) As Ordered ONE; -ceFAZolin 1GM INJ (J0690 PER 500MG) As Ordered ONE; -diphenhydrAMINE INJ 50MG/ML VIAL (J1200) As Ordered ONE; -fentaNYL 100 MCG/2 ML INJECTION (J3010) As Ordered ONE
[2019-06-18 13:10] VITALS: BP 119/61
--- NOTE | 2019-06-18 13:49 | IRPN ---
[facility] IR Progress Note IR Progress Note DATE: Jun 18, 2019 FOLLOW-UP: 1 week status post right chest wall port placement. Right neck swelling and pain. No fevers or chills. Went to see oncologist today and had an ultrasound performed. This demonstrates thrombus within internal jugular vein. Port was aspirated today and flushes freely. ON EXAMINATION: Right neck swelling. Mild tenderness. Port site and venotomy site looks to be healing well. No fluctuance, discharge or signs of infection. I personally reviewed the same day ultrasound of the neck. 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 I recommend 6 months of therapeutic anticoagulation to treat this; lovenox started by oncology. Port should remain in place and may be used. I will follow the patient up in 2 weeks. I discussed my findings and suggestions with Dr. Beard. Thank you for this referral. Allergies Coded Allergies: bee venom protein (honey bee) (Verified Adverse Reaction, Mild, vomitting/diarrhea, 05/09/19) VS,Fishbone, I+O VS, Fishbone, I+O Vital Signs Date Time Temp Pulse Resp B/P (MAP) Pulse Ox O2 Delivery O2 Flow Rate FiO2 06/18/19 13:10 98.3 83 18 119/61 (80) 99 Room Air FRANCISCO MCFADDEN MD Jun 18, 2019 13:49
== END ==
LOC: M IRPOV 12:35
PROVIDERS: ATTEND Radiology Diagnostic Radiology
DX: Z45.2 Encounter for adjustment and management of vascular access device (principal)

== ENCOUNTER 2019-06-25 16:32 | Inpatient (IN) | payer MEDICARE ==
[~2019-06-25] VITALS: Ht 165.1 cm; Wt 57.0 kg
[2019-06-25] MEDS ORDERED: NS 1,000 ML IV ONE (17:00)
[2019-06-25 17:01] LABS: HEMATOCRIT 32.4 % (36.0-47.0); LYMPH # 0.3 10^3/uL (1.5-5.0); LYMPH % 5.4 % (24.0-44.0); MEAN CORPUSCULAR HEMOGLOBIN 27.2 pg (27.0-33.0); MEAN CORPUSCULAR HGB CONC 30.9 g/dl (32.0-36.5); MEAN CORPUSCULAR VOLUME 88.3 fl (80.0-96.0); MONO % 0.2 % (0.0-5.0); NEUTROPHILS # 5.5 10^3/uL (1.5-8.5); NEUTROPHILS % 94.1 % (36.0-66.0); PLATELET COUNT, AUTOMATED 286 10^3/uL (150-450); RED BLOOD COUNT 3.67 10^6/uL (4.00-5.40); WHITE BLOOD COUNT 5.8 10^3/uL (4.0-10.0)
[2019-06-25 17:12] LABS: INR 1.05; PROTHROMBIN TIME 13.4 SECONDS (11.8-14.0)
[2019-06-25 17:14] LABS: PARTIAL THROMBOPLASTIN TIME 27.3 SECONDS (25.0-38.4)
--- NOTE | 2019-06-25 17:28 | REPVR ---
PROCEDURE INFORMATION: Exam: CT Head Without Contrast Exam date and time: 06/25/2019 5:11 PM Clinical history: 84 years old, female; Syncope and collapse TECHNIQUE: Imaging protocol: Computed tomography of the head without contrast. Radiation optimization: All CT scans at this facility use at least one of these dose optimization techniques: automated exposure control; mA and/or kV adjustment per patient size (includes targeted exams where dose is matched to clinical indication); or iterative reconstruction. COMPARISON: CT Head without contrast 04/14/2019 9:51 AM FINDINGS: Brain: There is volume loss. There is mild white matter lucency consistent with chronic microvascular disease. There is no acute infarct. There is no hemorrhage or extra-axial collection. There is no mass. Ventricles: Ventricular size is proportionate to the prominence of the sulci. Bones/joints: Unremarkable. No acute fracture. Sinuses: Visualized sinuses are unremarkable. No fluid levels. Mastoid air cells: Visualized mastoid air cells are well aerated. Soft tissues: Unremarkable. IMPRESSION: 1. Mild volume loss and chronic microvascular disease. 2. No acute lesion or injury and no change from prior scan. Electronically signed by: Kenyon Sommers On 06/25/2019 17:27:49 PM
[2019-06-25 17:33] LABS: ALT/SGPT 94 U/L (12-78); BILIRUBIN,DIRECT < 0.1 MG/DL (0.0-0.2); BILIRUBIN,TOTAL 0.3 MG/DL (0.2-1.0); BLOOD UREA NITROGEN 15 MG/DL (7-18); CALCIUM LEVEL 8.6 MG/DL (8.8-10.2); CARBON DIOXIDE LEVEL 22 MEQ/L (21-32); CHLORIDE LEVEL 111 MEQ/L (98-107); CK-MB VALUE MASS < 1.0 NG/ML (<3.6); CPK CREATINE PHOSPHOKINASE 40 U/L (26-192); CREATININE FOR GFR 0.96 MG/DL (0.55-1.30); FREE T4 1.19 NG/DL (0.76-1.46); GLOMERULAR FILTRATION RATE 59.2 (>32); GLUCOSE, FASTING 71 MG/DL (70-100); MAGNESIUM LEVEL 1.6 MG/DL (1.8-2.4); POTASSIUM SERUM 3.6 MEQ/L (3.5-5.1); SODIUM LEVEL 141 MEQ/L (136-145); TOTAL PROTEIN 5.9 GM/DL (6.4-8.2); TROPONIN I < 0.02 NG/ML (< 0.10)
--- NOTE | 2019-06-25 17:37 | REP ---
Clinical: Syncope/near-syncopal episode . Comparison: 04/14/2019 . Findings: The mediastinum and cardiac silhouette are stable and within normal limits for portable technique. [id number] identified with tip in the SVC/right atrium. The lung fatima demonstrate chronic stable changes without acute consolidation, effusion, or pneumothorax. Skeletal structures are intact. Impression: No acute cardiopulmonary process appreciated. Electronically Signed by Richard Shaffer MD 06/25/2019 05:28 P
[2019-06-25] MEDS ORDERED: FOLFOX (19:38)
[2019-06-25] MEDS ORDERED: [UNRECOGNIZED DRUG - MIXTURE] (19:41)
[2019-06-25] MEDS ORDERED: MAG SULF 1GM/100ML (MAG RUN) 1 GM in IV 1 EA IV ONE ×2 (20:15→21:30)
[2019-06-25] MEDS ORDERED: VANCOMYCIN HCL 1 MG in IV FLUID PLACE HOLDER 1 EA IV SCH (20:15)
[2019-06-25] MEDS ORDERED: ACETAMINOPHEN TAB 650MG DOSE (2X325MG) PO ONE (20:30)
[2019-06-25 20:46] LABS: ERYTHROCYTE SEDIMENTATION RATE 35 mm/hr (0-30)
--- NOTE | 2019-06-25 20:53 | PHACANCOPD ---
PHARMACY VANCOMYCIN DOSING Pt Demographics Demographics Patient Age:84 , Weight:55.000 , Gender: female Adjusted Body Weight Date: 06/25/19, Adjusted Body Weight: Kg Vancomycin Vancomycin Target Ranges: 15-20 mcg/ml Vancomycin Load Y/N: Yes Load Dose Date Time Vancomycin Load Dose: 1250 MG Date: 06/25 Time: 2200 Vancomycin Dose Date: 06/25/19. Current Vancomycin Dose: [1 GM IV Q24H] Intermittent Dosing?: No Labs Labs Vital Signs Label Value Date Time Patient Temperature 101.7 degrees F 06/25/191954 Temperature Source Oral 06/25/191954 Pulse 93 06/25/19 1915 Pulse 92 06/25/19 1900 Pulse 92 06/25/19 1845 Item Value Date Time Erythrocyte Sedimentation Rate 35 mm/hr H 06/25/19 1640 Lactic Acid Level 2.6 MMOL/L *H 06/25/19 1640 Micro Microbiology 06/25/19 Respiratory Virus Panel (PCR) (LUIS A), Received Pending 06/25/19 Urine Culture, Received Pending 06/25/19 Blood Culture, Received Pending 06/25/19 Blood Culture, Received Pending Creatinine Clearance Date:06/25/19. Creatinine Clearance: . Assessment and Plan Maintaining Current Dose?: Yes Reason for dose change: No Dose Change Pharmacist Note Pharmacist Note Date: 06/25/19. Pharmacist note: Pharmacy consulted for Vancomycin dosing, patient has no Vancomycin or MRSA history here at [facility]. We'll load her with 1250 mg IV followed by 1 gm IV q24h, pharmacy will continue to monitor and make adjustments as needed. [facility] Jun 25, 2019 20:53
[2019-06-25] MEDS: METOPROLOL TART 50 MG TAB PO SCH (21:00)
[2019-06-25] MEDS ORDERED: METO1TAB87 PO (21:46)
[2019-06-25] MEDS ORDERED: VANCOMYCIN HCL 750 MG, VIAL MATE ADAPTER 1 EACH in D5W 250 ML IV ONE (22:00)
--- NOTE | 2019-06-25 22:33 | HPE ---
DATE OF ADMISSION: 06/25/2019 PRIMARY CARE PHYSICIAN: Gina Manzo PA-C CHIEF COMPLAINT: Passed out. HISTORY OF THE PRESENT ILLNESS: This is an 84-year-old female, DO NOT RESUSCITATE, DO NOT INTUBATE with a history of colon cancer, started chemotherapy today, was brought into the hospital after being found unresponsive in the truck. When the patient got home, she was in her usual state of health and went to chemotherapy with Dr. Merissa Dan this morning. Her daughter took her home along with her and while she complained of a slight headache and took two Tylenol and told her daughter that she was not feeling well, and daughter asked her if she wanted the daughter to get into the house and get her settled in. The came out of the truck and got the mail and the daughter pulled into the garage. As she walked over to the passenger side, the patient said that she did not feel well, her jaw dropped and her tongue was out, and she was not herself. She was found to be yawning and was not right. She could not think. Emergency medical services (EMS) was called at 3:20 and EMS arrived at 3:30 p.m. The patient had coffee and bagel at 6:00 a.m., a cup of chicken noodle soup at noon, and was in chemotherapy until 2:00 p.m. For the past couple of days, has had some night sweats but no documented fever. She denies any cough, shortness of breath, palpitations, lightheadedness, or dizziness. No nausea, vomiting. She complains of abdominal discomfort and right anterior chest port pain since the port was put in. She had one episode like this before when the port was put in, and had another small episode in early March when she had complained of dizziness and was found to be anemic and diagnosed with colon cancer. She was brought into the emergency room. EKG showed sinus rhythm, ventricular rate of 88, nonspecific T-wave changes. Chest x-ray was negative. No acute cardiopulmonary process. She was found to be febrile, 101.7 temperature. Blood cultures were obtained. Urinalysis was negative. White count was normal with 94% neutrophils, lactic acid was elevated at 2.6 and blood pressure was 122/58. Hospitalist was called to admit for syncopal episode and fever. PAST MEDICAL HISTORY: Colon cancer, undergoing chemotherapy. Hypertension. Hypothyroidism. Reflux. 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 PAST SURGICAL HISTORY: Right chest wall port placement, May 2019. May 13, 2019 en block resection of the right colon cancer with primary anastomosis. ALLERGIES: No known drug allergies except from BEE VENOM, HONEY BEE. HOME MEDICATIONS: - Lovenox 60 mg subcu twice a day - Synthroid 88 mcg daily - lisinopril 40 mg daily - metoprolol 25 mg three times a day - Zofran 8 mg every 6 hours as needed for nausea - prochlorperazine 10 mg every 8 hours - epinephrine as needed - ferrous sulfate 25 mg, 159 mg tablet daily - Cidaflex glucosamine/chondroitin one tablet daily - Tuttle-3 2000 mg daily - FOLFOX therapy SOCIAL HISTORY: Patient lives with her at home. Healthcare proxy is Rosamaria sOman, phone number [phone]. Patient is DO NOT RESUSCITATE, DO NOT INTUBATE. FAMILY HISTORY: Noncontributory due to age. REVIEW OF SYSTEMS: Patient complains of headache, too two Tylenol earlier in the evening, rated as 5/10, currently with no headache. She currently has a fever, pain at the right anterior chest Infusaport area with no drainage, no significant tenderness. Also complains of right lower quadrant pain in the abdomen without nausea or vomiting. Complains of night sweats for the last 2 days, otherwise 10-point system is negative aside from positive findings in history of the present illness. PHYSICAL EXAMINATION: Temperature 101.7, pulse 93, respiratory rate 20, blood pressure 122/58, 98% on room air. Generally, patient is awake, alert, oriented to person, place and time, answering questions appropriately. Face is symmetric. Tongue is midline. No tracheal deviation. No use of respiratory accessory muscles. Lungs are clear to auscultation. No wheezing, rales, or rhonchi. Heart: S1, S2, sinus rhythm. Abdomen is soft, positive bowel sounds times four quadrants. Right-sided slight tenderness. No rebound or guarding. Extremities: No cyanosis, clubbing, or any pitting edema. Skin: Patient has right anterior chest Infusaport. EKG: Sinus rhythm, ventricular rate of 88, nonspecific T-wave changes. LABORATORY DATA: White count 5.8, hemoglobin 10, hematocrit 32, platelet count 286. Sodium 141, potassium 3.6, chloride 111, bicarbonate 22, BUN 15, creatinine 0.96, glucose 71, lactic acid 2.6, calcium of 8.6, magnesium 1.6, total bilirubin 0.3, direct bilirubin less than 0.1, AST 68, ALT 94, alkaline phosphatase 74, total CK 40, CK-MB less than 1, troponin less than 0.02. CRP is pending. Total protein 5.9, albumin of 3, TSH 2.87, free T4 of 1.19. Urinalysis: Yellow color, hazy appearance, negative nitrite, trace leukocyte esterase, 2 WBCs, 1+ bacteria. Two sets of blood cultures are pending. Respiratory panel is pending. Urine culture is pending. IMAGING STUDIES: CT of the head: Mild volume loss and chronic microvascular disease. No acute lesion or injury. No change from prior scan. Chest x-ray: No acute cardiopulmonary process. 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 Patient was found to have a right internal jugular deep vein thrombosis (DVT) diagnosed on 06/18/2019, on Lovenox with resolution of the right neck congestion, presented to the emergency room today after having a syncopal episode at home after returning from chemotherapy. In the ER, she was found to have sinus rhythm, ventricular rate of 88, febrile 101.7 with normal white count with 94% neutrophils. She is being admitted for the following acute issues as an inpatient for two midnights: 1. Fever. Patient had a recent Infusaport placement and at risk for line sepsis. She has fever of 101.7, pulse of 93. She has no white count at the moment. She will be given IV Zosyn for gram-negative coverage, vancomycin for gram-positive coverage. Chest x-ray, urine are essentially negative. Blood cultures are pending. Repeat CBC, metabolic panel, and procalcitonin will be obtained in the morning. At this time, medications would be dosed renally due to her advanced age and await final sensitivity results. 2. Syncope. Patient will be kept on telemetry. EKG did not show any arrhythmia at this time. Echocardiogram will be obtained. She does have a right internal jugular vein thrombosis with improved neck congestion, on chronic Lovenox which will be continued. She has not had any previous echocardiogram, which we will obtain during this admission. 3. Right internal jugular vein thrombus. She had been on Lovenox as an outpatient, which we will continue during the admission and hospitalization. She is currently 55 kg; pharmacy to adjust according to renal function. 4. Hypertension. Currently stable, systolic pressure of 122. Will continue her dose of lisinopril and metoprolol. To hold for systolic pressure less than 120, metoprolol to be held for heart rate less than 60, and lisinopril to be held for creatinine greater than 1.5. 5. Hypothyroidism. Thyroid-stimulating hormone (TSH) is within normal limits. Continue on her home dose of Synthroid 75 mcg daily. 6. Reflux. Continue on omeprazole. CODE STATUS: She is currently DO NOT RESUSCITATE, DO NOT INTUBATE. Healthcare proxy is Rosamaria Osman; phone number [phone]. Alison and the three daughters are present at the bedside and when the patient decided on no cardiopulmonary resuscitation and no intubation, and mechanical ventilation. DVT prophylaxis: Currently on Lovenox. Diet: No added salt. MTDD
--- NOTE | 2019-06-25 22:39 | IPNPDOC ---
Date Seen The patient was seen on 06/25/19. Progress Note code status: patient changed her mind about DNR/DNI, and now wants to be DNR / TRIAL OF INTUBATION. VS, I&O, 24H, [facility] Vital Signs/I&O Vital Signs Date Time Temp Pulse Resp B/P (MAP) Pulse Ox O2 Delivery O2 Flow Rate FiO2 06/25/19 21:30 93 117/56 (76) 98 06/25/19 19:55 101.7 06/25/19 19:15 Room Air 06/25/19 16:38 20 Laboratory Data 24H LABS Laboratory Tests 2 06/25/19 16:40: Immature Granulocyte % (Auto) 0.3, Neutrophils (%) (Auto) 94.1H, Lymphocytes (%) (Auto) 5.4L, Monocytes (%) (Auto) 0.2, Eosinophils (%) (Auto) 0.0, Basophils (%) (Auto) 0.0, Neutrophils # (Auto) 5.5, Lymphocytes # (Auto) 0.3L, Monocytes # (Auto) 0.0, Eosinophils # (Auto) 0.0, Basophils # (Auto) 0.0, Nucleated Red Blood Cells % (auto) 0.0, Erythrocyte Sedimentation Rate 35H, Prothrombin Time 13.4, Prothromb Time International Ratio 1.05, Activated Partial Thromboplast Time 27.3, Anion Gap 8, Glomerular Filtration Rate 59.2, Lactic Acid Level 2.6*H, Calcium Level 8.6L, Magnesium Level 1.6L, Total Bilirubin 0.3, Direct Bilirubin < 0.1, Aspartate Amino Transf (AST/SGOT) 68H, Alanine Aminotransferase (ALT/SGPT) 94H, Alkaline Phosphatase 74, Total Creatine Kinase 40, Creatine Kinase MB < 1.0, Creatine Kinase MB Relative Index 2.50, Troponin I < 0.02, Tot al Protein 5.9L, Albumin 3.0L, Albumin/Globulin Ratio 1.03, Thyroid Stimulating Hormone (TSH) 2.870, Free Thyroxine 1.19 06/25/19 20:12: Urine Color YELLOW, Urine Appearance HAZY, Urine pH 5.0, Urine Specific [place] 1.012, Urine Protein NEGATIVE, Urine Glucose (UA) NEGATIVE, Urine Ketones NEGATIVE, Urine Blood NEGATIVE, Urine Nitrite NEGATIVE, Urine Bilirubin NEGATIVE, Urine Urobilinogen 0.2, Urine Leukocyte Esterase TRACEH, Urine WBC (Auto) 2, Urine RBC (Auto) 8H, Urine Hyaline Casts (Auto) 0, Urine Bacteria (Auto) 1+H, Urine Squamous Epithelial Cells 1, Urine Mucus (Auto) SMALL, Urine Sperm (Auto) 06/25/19 20:50: Lactic Acid Level 2.7*H, C-Reactive Protein, Quantitative 1.02H CBC/BMP Laboratory Tests 06/25/19 16:40 Microbiology Microbiology 06/25/19 Blood Culture, Received Pending 06/25/19 Blood Culture, Received Pending 06/25/19 Respiratory Virus Panel (PCR) ([facility]) - Final, Complete 06/25/19 Urine Culture, Received Pending 06/25/19 Blood Culture, Received Pending 06/25/19 Blood Culture, Received Pending JUAN ALBERTO SOLANO MD Jun 25, 2019 22:39
--- NOTE | 2019-06-25 22:49 | ECGEPIP ---
[facility] - ED Test Date: 2019-06-25 Pat Name: BOGDAN NOLEN Department: Room: - Gender: Female Tourist Guide: ct : 1935 Requested By: ASH Narayanan Order Number: [id number] Reading MD: Marah Jeronimo Measurements Intervals [place] Rate: 88 P: 52 GA: 166 QRS: 10 QRSD: 84 T: 69 QT: 337 QTc: 408 Interpretive Statements SINUS RHYTHM NONSPECIFIC T-WAVE ABNORMALITY INTERPRETATION BASED ON A DEFAULT AGE OF 40 YEARS LOW VOLTAGE LIMB DECREASED ECTOPY 04/14/19 Electronically Signed on 06-25-2019 22:49:03 EDT by Marah Jeronimo
[2019-06-25 23:00] VITALS: BP 106/54
[2019-06-25] MEDS ORDERED: VANCOMYCIN HCL 500 MG in D5W MINI-BAG PLUS 100 ML IV ONE (23:00)
[2019-06-25] MEDS: PIPERACILLIN/TAZOBACTAM SOD 3.375 GM in D5W MINI-BAG PLUS 50 ML IV SCH (23:14)
[2019-06-26] VITALS: BP 107/54
[2019-06-26] MEDS: ENOXAPARIN 60 MG/0.6 ML SYR (J1650) SC SCH ×3 (00:22→22:09)
[2019-06-26] MEDS: PIPERACILLIN/TAZOBACTAM SOD 3.375 GM in D5W MINI-BAG PLUS 50 ML IV SCH ×4 (03:37→20:55)
[2019-06-26 04:00] VITALS: BP 113/64
[2019-06-26] MEDS: LEVOTHYROXINE 88MCG TABLET (0.088 MG) PO SCH (05:30)
[2019-06-26 05:53] LABS: BASO % 0.2 % (0.0-1.0); EOS % 0.1 % (0.0-3.0); HEMATOCRIT 28.1 % (36.0-47.0); HEMOGLOBIN 8.8 g/dl (12.0-15.5); LYMPH # 0.5 10^3/uL (1.5-5.0); LYMPH % 5.5 % (24.0-44.0); MEAN CORPUSCULAR HGB CONC 31.3 g/dl (32.0-36.5); MEAN CORPUSCULAR VOLUME 86.2 fl (80.0-96.0); MONO % 0.3 % (0.0-5.0); NEUTROPHILS # 9.3 10^3/uL (1.5-8.5); NEUTROPHILS % 93.6 % (36.0-66.0); PLATELET COUNT, AUTOMATED 270 10^3/uL (150-450); RED BLOOD COUNT 3.26 10^6/uL (4.00-5.40); WHITE BLOOD COUNT 9.9 10^3/uL (4.0-10.0)
[2019-06-26] MEDS: ACETAMINOPHEN TAB 650MG DOSE (2X325MG) PO PRN (06:09)
[2019-06-26 06:17] LABS: CALCIUM LEVEL 7.7 MG/DL (8.8-10.2); CREATININE FOR GFR 1.08 MG/DL (0.55-1.30); GLOMERULAR FILTRATION RATE 51.7 (>32); POTASSIUM SERUM 3.9 MEQ/L (3.5-5.1)
[2019-06-26 06:18] LABS: ALBUMIN 2.5 GM/DL (3.2-5.2); ALT/SGPT 138 U/L (12-78); BILIRUBIN,DIRECT < 0.1 MG/DL (0.0-0.2); BILIRUBIN,TOTAL 0.4 MG/DL (0.2-1.0); MAGNESIUM LEVEL 2.5 MG/DL (1.8-2.4); TOTAL PROTEIN 5.2 GM/DL (6.4-8.2)
[2019-06-26 08:00] VITALS: BP 102/54
[2019-06-26] MEDS ORDERED: METOPROLOL SUCC *XL* 25MG TAB (TopROL *XL*) PO SCH (09:00)
[2019-06-26] MEDS: METOPROLOL TART 25 MG TABLET PO SCH (09:00)
[2019-06-26] MEDS: LISINOPRIL 40 MG TAB PO SCH (09:00)
[2019-06-26] MEDS: LACTOBACILLUS ACIDOPHILUS CAP (BACID) PO SCH ×2 (09:09→18:43)
[2019-06-26 09:38] LABS: HEPATITIS B SURFACE ANTIGEN NEGATIVE (NEGATIVE)
[2019-06-26 10:06] LABS: HEPATITIS B CORE ANTIBODY IGM NEGATIVE (NEGATIVE); HEPATITIS C VIRUS ABY INDEX 0.1 INDEX (<0.8)
[2019-06-26 10:08] LABS: HEPATITIS A ANTIBODY IGM NEGATIVE (NEGATIVE)
[2019-06-26] MEDS: VANCOMYCIN HCL 1,000 MG, VIAL MATE ADAPTER 1 EACH in D5W 250 ML IV SCH (11:56)
[2019-06-26 12:00] VITALS: BP 110/52
[2019-06-26 16:00] VITALS: BP 108/60
--- NOTE | 2019-06-26 16:11 | IPNPDOC ---
Text Note Date of Service The patient was seen on 06/26/19. NOTE SUBJECTIVE: was admitted with syncope and an episode of fever. These may or may not have been associated with her receiving her initial dose of chemotherapy for her colon cancer. OBJECTIVE: Please see vital signs below--the patient had a MAXIMUM TEMPERATURE of the 100.3 at admission, but has been afebrile since then Physical exam: HENT: Neck is supple with no adenopathy or thyromegaly, she has no scleral injection or diaphoresis. Cardiovascular: Regular rate and rhythm. No appreciable murmur. Respiratory: Clear to auscultation with good air movement; patient has [id number]-[id number] in place. Abdomen: Soft, nontender, nondistended. Extremities: No peripheral edema or lesions, pedal pulses are palpable ASSESSMENT/PLAN: 1. Syncope. This is of unclear etiology. There was no focal loss of consciousness. This has not recurred. She has not demonstrated any sort of cardiac arrhythmia. We'll continue to observe her for now. 2. Fever. Patient has been initiated on chemotherapy for adenocarcinoma of the colon. Just received her first dose. She does not have leukocytosis or leukopenia. Blood and urine culture results are still pending. Respiratory virus panel is negative. 2. CODE STATUS. The family reports having filled out a MOLST form stating that the patient was to be DO NOT resuscitate with trial intubation. Today they are very unsure about their decisions. Plans are for the patient to be full code until firm decisions have been made. We have discussed sections of the MOLST form at length. VS,Fishbone, I+O VS, Fishbone, I+O Laboratory Tests 06/25/19 16:40 06/26/19 05:30 Vital Signs Date Time Temp Pulse Resp B/P (MAP) Pulse Ox O2 Delivery O2 Flow Rate FiO2 06/26/19 12:00 98.0 71 18 110/52 (71) 98 Room Air I&O- Last 24 Hours up to 6 AM 06/26/19 06:00 Intake Total 2045 ml Output Total 225 ml Balance 1820 ml FLORIAN MENDOZA MD Jun 26, 2019 16:11
[2019-06-26] MEDS ORDERED: ONDANSETRON 4MG/2ML VIAL (J2405) IV PRN (16:15)
[2019-06-26 20:00] VITALS: BP 120/68
[2019-06-26] MEDS: METOPROLOL TART 50 MG TAB PO SCH (20:55)
[2019-06-27] VITALS (7 sets, daily range): BP systolic 132–172; BP diastolic 58–83
[2019-06-27] MEDS: ACETAMINOPHEN TAB 650MG DOSE (2X325MG) PO PRN (03:20)
[2019-06-27] MEDS: PIPERACILLIN/TAZOBACTAM SOD 3.375 GM in D5W MINI-BAG PLUS 50 ML IV SCH ×4 (03:20→21:28)
--- NOTE | 2019-06-27 05:40 | ECHO ---
DATE OF STUDY: 06/26/2019 DATE OF : 1935 AGE: 84 REFERRING PROVIDER: Dr. Meg Chaney PATIENT LOCATION: Room 3222 REASON FOR STUDY: Syncope. 2-D MEASUREMENTS: IVS: 1.2 cm LVPW: 1.0 cm LA: 2.7 cm Aorta: 3.0 cm IVC: 1.3 cm DOPPLER MEASUREMENTS: Peak velocity across the aortic valve: 1.6 m/s Peak velocity across the LVOT: 1.1 m/s Peak gradient across the aortic valve: 10 mmHg Mitral E: 0.83 Mitral A: 0.98 Ratio: 0.9 Maximum tricuspid valve velocity: 2.6 m/s 2-D COMMENTS: 1. Normal left ventricular size, wall thickness, and normal global left ventricular systolic function. The estimated left ventricular systolic ejection fraction is 60-65%. 2. Normal left atrium. Normal right atrium and right ventricle. 3. The atrial septum appeared to be normal without evidence of defect or shunt. 4. Normal aortic root. 5. A small pericardial effusion was noted, no evidence of cardiac tamponade. 6. Mildly calcified aortic valve with normal leaflet excursion. Mildly calcified mitral annulus with normal anterior mitral valve leaflet motion. Normal tricuspid valve and pulmonic valve. The proximal pulmonary artery branches also appeared to be normal. 7. The inferior vena cava was normal in size, central venous pressure is most likely normal. DOPPLER: Detects mild mitral regurgitation, mild tricuspid regurgitation and mild to moderate pulmonic regurgitation. The calculated pulmonary artery systolic pressure varies between 30-40 mmHg. Abnormal relaxation pattern was noted across the mitral valve leaflets as well as the mitral valve annulus consistent with features of grade 1 left ventricular diastolic dysfunction. IMPRESSION: 1. Normal global left ventricular systolic function. There are features of left ventricular diastolic dysfunction manifested by abnormal relaxation. 2. Aortic valve sclerosis with trivial aortic stenosis, but no aortic regurgitation. 3. Mitral annulus calcification with mild mitral regurgitation. 4. Mild tricuspid regurgitation with mild pulmonary hypertension. 5. A small pericardial effusion was noted, no evidence of cardiac tamponade. 6. Mild to moderate pulmonic regurgitation. MTDD
[2019-06-27 06:09] LABS: BASO % 0.2 % (0.0-1.0); EOS # 0.1 10^3/uL (0.0-0.5); EOS % 1.3 % (0.0-3.0); HEMATOCRIT 28.7 % (36.0-47.0); HEMOGLOBIN 8.9 g/dl (12.0-15.5); LYMPH # 1.3 10^3/uL (1.5-5.0); LYMPH % 25.4 % (24.0-44.0); MEAN CORPUSCULAR HEMOGLOBIN 26.2 pg (27.0-33.0); MEAN CORPUSCULAR VOLUME 84.4 fl (80.0-96.0); MONO # 0.3 10^3/uL (0.0-0.8); MONO % 5.2 % (0.0-5.0); NEUTROPHILS # 3.5 10^3/uL (1.5-8.5); NEUTROPHILS % 67.5 % (36.0-66.0); PLATELET COUNT, AUTOMATED 252 10^3/uL (150-450); WHITE BLOOD COUNT 5.2 10^3/uL (4.0-10.0)
[2019-06-27 06:38] LABS: CALCIUM LEVEL 7.9 MG/DL (8.8-10.2); CREATININE FOR GFR 1.03 MG/DL (0.55-1.30); GLOMERULAR FILTRATION RATE 54.6 (>32)
[2019-06-27] MEDS: LEVOTHYROXINE 88MCG TABLET (0.088 MG) PO SCH (06:40)
[2019-06-27] MEDS: LISINOPRIL 40 MG TAB PO SCH (08:47)
[2019-06-27] MEDS: LACTOBACILLUS ACIDOPHILUS CAP (BACID) PO SCH ×2 (08:47→18:22)
[2019-06-27] MEDS: METOPROLOL TART 25 MG TABLET PO SCH (08:47)
[2019-06-27] MEDS: VANCOMYCIN HCL 1,000 MG, VIAL MATE ADAPTER 1 EACH in D5W 250 ML IV SCH (11:52)
[2019-06-27] MEDS: ENOXAPARIN 60 MG/0.6 ML SYR (J1650) SC SCH ×2 (11:53→22:59)
--- NOTE | 2019-06-27 15:49 | IPNPDOC ---
Text Note Date of Service The patient was seen on 06/27/19. NOTE SUBJECTIVE: is sitting up and conversant. She has no physical complaints. Family members are with her in the room. Patient was admitted with concerns for fever and syncope. OBJECTIVE: Please see vital signs below--patient has been afebrile overnight. Physical exam: HENT: Neck is supple with no adenopathy or thyromegaly, she has no scleral injection or diaphoresis. Cardiovascular: Regular rate and rhythm, patient actually does have soft grade 2 systolic murmur Respiratory: Clear to auscultation with good air movement; patient has Vxgwhb-p-Bzpr in place. Abdomen: Soft, nontender, nondistended. Extremities: No peripheral edema or lesions, pedal pulses are palpable Neuro: no focal neuromotor or sensory deficit Skin: No rashes ASSESSMENT/PLAN: 1. Syncope. This is of unclear etiology. There was no focal loss of consciousness. This has not recurred. She has not demonstrated any sort of cardiac arrhythmia. Echocardiogram obtained was unremarkable; ejection fraction is 60-65%. Pulmonary artery systolic pressure is slightly elevated at 30-40 mmHg indicating mild pulmonary hypertension. There are also features of grade I diastolic dysfunction. 2. SIRS Patient had been initiated on chemotherapy for adenocarcinoma of the colon and just received her first dose. Concern was raised for SIRS , when she developed fever and lactic acid to 3.4. This has since normalized to 1.2. She has defervesced. She does not have leukocytosis or leukopenia. Blood and urine cultures are negative to date. Respiratory virus panel is negative. She is not on antibiotics and does not require IV fluids. SIRS is resolved. 2. CODE STATUS. The family reports having filled out a MOLST form stating that the patient was to be DO NOT resuscitate with trial intubation. They were very unsure about their decisions. Plans are for the patient to be full code until firm decisions have been made. We have discussed sections of the MOLST form at length. Anticipate that if cultures remain negative. Patient should be able to be discharged to home tomorrow. VS,Fishbone, I+O VS, Fishbone, I+O Laboratory Tests 06/27/19 05:48 Vital Signs Date Time Temp Pulse Resp B/P (MAP) Pulse Ox O2 Delivery O2 Flow Rate FiO2 06/27/19 12:00 99.0 66 18 144/70 (94) 99 Room Air I&O- Last 24 Hours up to 6 AM 06/27/19 06:00 Intake Total 1590 ml Output Total 3050 ml Balance -1460 ml FLORIAN MENDOZA MD Jun 27, 2019 15:49
[2019-06-27] MEDS: METOPROLOL TART 50 MG TAB PO SCH (21:28)
[2019-06-28] VITALS: BP 135/64
[2019-06-28 04:00] VITALS: BP 162/75
[2019-06-28] MEDS: PIPERACILLIN/TAZOBACTAM SOD 3.375 GM in D5W MINI-BAG PLUS 50 ML IV SCH ×2 (04:01→10:03)
[2019-06-28] MEDS: ACETAMINOPHEN TAB 650MG DOSE (2X325MG) PO PRN (04:31)
[2019-06-28] MEDS: LEVOTHYROXINE 88MCG TABLET (0.088 MG) PO SCH (05:35)
[2019-06-28 05:54] LABS: BASO % 0.6 % (0.0-1.0); EOS # 0.1 10^3/uL (0.0-0.5); EOS % 3.4 % (0.0-3.0); HEMATOCRIT 29.2 % (36.0-47.0); HEMOGLOBIN 8.9 g/dl (12.0-15.5); LYMPH # 1.2 10^3/uL (1.5-5.0); LYMPH % 36.3 % (24.0-44.0); MEAN CORPUSCULAR HGB CONC 30.5 g/dl (32.0-36.5); MEAN CORPUSCULAR VOLUME 85.4 fl (80.0-96.0); MONO # 0.3 10^3/uL (0.0-0.8); MONO % 9.8 % (0.0-5.0); NEUTROPHILS # 1.6 10^3/uL (1.5-8.5); NEUTROPHILS % 49.6 % (36.0-66.0); PLATELET COUNT, AUTOMATED 230 10^3/uL (150-450); RED BLOOD COUNT 3.42 10^6/uL (4.00-5.40); WHITE BLOOD COUNT 3.3 10^3/uL (4.0-10.0)
[2019-06-28 08:00] VITALS: BP 170/82
[2019-06-28] MEDS: METOPROLOL TART 25 MG TABLET PO SCH (10:02)
[2019-06-28] MEDS: LISINOPRIL 40 MG TAB PO SCH (10:02)
[2019-06-28] MEDS: LACTOBACILLUS ACIDOPHILUS CAP (BACID) PO SCH (10:02)
[2019-06-28] MEDS: ENOXAPARIN 60 MG/0.6 ML SYR (J1650) SC SCH (10:03)
[2019-06-28] MEDS ORDERED: RISATAB3 PO (11:00)
[2019-06-28] MEDS ORDERED: SLF 3 ML SYR IV PRN (11:30)
[2019-06-28] MEDS: VANCOMYCIN HCL 1,000 MG, VIAL MATE ADAPTER 1 EACH in D5W 250 ML IV SCH (11:38)
[2019-06-28] MEDS ORDERED: SLF 3 ML SYR IV SCH (14:00)
[2019-07-08] MEDS ORDERED: PROBCAP14 PO (09:22)
--- NOTE | 2019-07-08 15:00 | DS.PDOC ---
Discharge Summary General Date of Admission Jun 25, 2019 at 19:39 Date of Discharge June 28, 2019 Discharge Summary PROCEDURES PERFORMED DURING STAY: [Echocardiogram]. ADMITTING DIAGNOSES: 1. [Syncope]. DISCHARGE DIAGNOSES: 1. [Syncope, moderately differentiated adenocarcinoma of the colon, R. IJ thrombus, essential hypertension, hypothyroidism]. COMPLICATIONS/CHIEF COMPLAINT: Syncope. HISTORY OF PRESENT ILLNESS/HOSPITAL COURSE: [84 year old female with recent diagnosis of adenocarcinoma of the colon had received her initial dose of chemotherapy and had a syncopal event. She was admitted with fever and elevated lactic acid. She defervesced almost immediately. Elevated lactic acid resolved. Blood cultures were negative for growth. Urine culture was positive for E. coli and Strep infantarius. She had already received a treatment course of vanco and Zosyn. She was otherwise doing well and stable for discharge to home.]. DISCHARGE MEDICATIONS: Please see below. ALLERGIES: Please see below. PHYSICAL EXAMINATION ON DISCHARGE: VITAL SIGNS: Please see below. HENT: Neck is supple with no adenopathy or thyromegaly, she has no scleral injection or diaphoresis. Cardiovascular: Regular rate and rhythm, patient actually does have soft grade 2 systolic murmur Respiratory: Clear to auscultation with good air movement; patient has [id number] in place. Abdomen: Soft, nontender, nondistended. Extremities: No peripheral edema or lesions, pedal pulses are palpable Neuro: no focal neuromotor or sensory deficit Skin: No rashes LABORATORY DATA: Please see below. IMAGING: PROGNOSIS: ACTIVITY: [As tolerated]. DIET: [As tolerated] DISCHARGE PLAN: [The patient was stable for discharge to home. She did not have leukopenia or leukocytosis. She is expectant of follow up with her oncologist for ongoing chemotherapy.] DISPOSITION: Home, Self-Care. DISCHARGE INSTRUCTIONS: 1. . ITEMS TO FOLLOWUP ON ON OUTPATIENT: 1. . DISCHARGE CONDITION: [Stable]. TIME SPENT ON DISCHARGE: [40] minutes. Discharge Medications Scheduled Enoxaparin Sodium (Lovenox) 60 Mg/0.6 Ml Syringe, 60 MG SC BID Enoxaparin Sodium (Lovenox) 60 Mg/0.6 Ml Syringe, 60 MG SC BID for dvt Epinephrine (Epipen 2-Liam) 0.3 Mg/0.3 Ml Auto.injct, 1 SYRINGE IM ONCE Ferrous Sulfate, Dried (Iron) 159 Mg Tablet.er, 25 MG PO DAILY, (Reported) Glucosamine/Chondr Francis A Sod (Cidaflex Tablet) 1 Each Tablet, 1 TAB PO DAILY, (Reported) L.acidoph/L.bulg/B.bif/S.therm (Deb-Bid Caplet) 1 Each Tablet, 1 EA PO BIDWM Lactobacillus Acidophilus (Probiotic) 1 Each Capsule, 1 CAP PO TID, (Reported) Levothyroxine Sodium (Levothyroxine Sodium) 88 Mcg Tablet, 88 MCG PO DAILY, (Reported) Lisinopril (Lisinopril) 40 Mg Tablet, 40 MG PO DAILY, (Reported) Metoprolol Tartrate (Metoprolol Tartrate) 25 Mg Tablet, 25 MG PO TID, (Reported) Turpin-3 Fatty Acids/Fish Oil (Fish Oil 1,000 mg Capsule) 1 Each Capsule, 2,000 MG PO DAILY, (Reported) Scheduled PRN Ondansetron HCl (Ondansetron HCl) 8 Mg Tablet, 8 MG PO Q6H PRN for NAUSEA OR VOMITING TAKE ONE TABLET EVERY 6 HOURS NEEDED FOR NAUSEA. Prochlorperazine Maleate (Prochlorperazine Maleate) 10 Mg Tablet, 10 MG PO Q8H PRN for NAUSEA OR VOMITING TAKE ONE TABLET EVERY 8 HOURS NEEDED FOR NAUSEA. Miscellaneous Medications [Folfox Chemotherapy] , (Reported) Irinotecan 165mg/m2 IV over 30 to 90 minutes Oxaliplatin 85mg/m2 IV over 2 hours Leucovorin 400mg/m2 IV over 2 hours to match the infusion time of oxaliplatin Repeat cycle every 2 weeks. STARTED INFUSION 06/25 AROUND NOON Allergies Coded Allergies: bee venom protein (honey bee) (Verified Adverse Reaction, Mild, vomitting/diarrhea, 05/09/19) FLORIAN MENDOZA MD Jul 08, 2019 15:00
[2019-07-08] MEDS ORDERED: ENOX80IN3 SC (17:28)
== END 2019-06-28 12:15 | disposition home or self-care (01) | DRG 864 ==
LOC: M ED 16:32 → EDSEX 16:32 → EDBD 16:32 → M ED INP 19:39 → M PCU 22:49
PROVIDERS: ADMIT General Practice; ATTEND Internal Medicine
DX: R50.9 Fever, unspecified (principal); I82.C21 Chronic embolism and thrombosis of right internal jugular vein; C18.9 Malignant neoplasm of colon, unspecified; E87.2 Acidosis; R65.10 Systemic inflammatory response syndrome (SIRS) of non-infectious origin without acute organ dysfunction; N39.0 Urinary tract infection, site not specified; R55 Syncope and collapse; I10 Essential (primary) hypertension; E03.9 Hypothyroidism, unspecified; B96.29 Other Escherichia coli [E. coli] as the cause of diseases classified elsewhere; Z79.899 Other long term (current) drug therapy; Z91.030 Bee allergy status; Z66 Do not resuscitate; K21.9 Gastro-esophageal reflux disease without esophagitis

== ENCOUNTER → 2019-07-02 | Outpatient (POV) | payer MEDICARE ==
[~2019-07-02] VITALS: Ht 165.1 cm; Wt 57.3 kg
[~2019-07-02] MED LIST changes: +FOLFOX; +RISATAB3 PO; +[UNRECOGNIZED DRUG - MIXTURE]
[2019-07-02 09:40] VITALS: BP 179/87
[2019-07-02 09:55] VITALS: BP 142/81
--- NOTE | 2019-07-03 08:48 | IRPN ---
[facility] IR Progress Note IR Progress Note DATE: Jul 02, 2019 FOLLOW-UP: Status post right chest wall port placement, patient developed internal jugular vein thrombosis. Patient started Lovenox. Reports decreased swelling in the right neck. Reports decreased pain. No fevers or chills. Port is working well. ON EXAMINATION: No no residual right-sided neck swelling. No neck tenderness. No redness. Port site looks good. IMPRESSION: Doing well on anticoagulation status post internal jugular vein thrombosis. Will require at least 6 months of anticoagulation. Port may continue to be used. We'll follow up patient in 6 months time with follow-up ultrasound. Thank you for this referral Allergies Coded Allergies: bee venom protein (honey bee) (Verified Adverse Reaction, Mild, vomitting/diarrhea, 05/09/19) VS,Fishbone, I+O VS, Fishbone, I+O Vital Signs Date Time Temp Pulse Resp B/P (MAP) Pulse Ox O2 Delivery O2 Flow Rate FiO2 07/02/19 09:55 142/81 (101) 07/02/19 09:40 99.0 71 16 98 Room Air FRANCISCO MCFADDEN MD Jul 03, 2019 08:48
== END ==
LOC: M IRPOV 08:56
PROVIDERS: ATTEND Radiology Diagnostic Radiology
DX: I82.C11 Acute embolism and thrombosis of right internal jugular vein (principal); Z45.2 Encounter for adjustment and management of vascular access device; Z79.01 Long term (current) use of anticoagulants

== ENCOUNTER → 2019-07-08 | Outpatient (CLI) | payer MEDICARE ==
[~2019-07-08] MED LIST changes: +ENOX80IN3 SC; +GASTROGRAFIN SOLUTION 30ML (Q9963) As Ordered ONE; +ISOVUE-370 76% 100ML VIAL (Q9967) As Ordered ONE; +PROBCAP14 PO
--- NOTE | 2019-07-08 14:43 | REP ---
CT abdomen and pelvis with IV and oral contrast: History: Colon cancer. High risk, stage III colon cancer with new elevated liver function studies. Comparison CT study: April 14, 2019. CT contrast dose: 100 mL of intravenous Isovue 370. CT findings: Preliminary digital customer security clerk radiograph shows an unremarkable bowel gas pattern. There are clips in right upper quadrant. There is a small pericardial effusion visible. This is unchanged from April 14, 2019. Cardiomegaly is observed. No adrenal lesion is seen. No focal liver mass lesion is observed. There is a tiny cyst in the right lobe of the liver unchanged. This measures only 5 mm. No abnormality is noted in the gallbladder. No pancreatic mass or cyst is seen. The patient is status post right colectomy with ileotransverse anastomosis. There is no evidence of regional or retroperitoneal lymphadenopathy. Small and large bowel loops are otherwise unremarkable. No free intraperitoneal air is seen. No abdominal wall defect seen. The uterus is surgically absent. Urinary bladder is unremarkable. No bony destructive lesion is appreciated. Impression: Status post right hemicolectomy. No intrahepatic lesion is seen. No abdominal adenopathy is observed. Electronically Signed by Alexander Phipps MD 07/08/2019 05:10 P
== END ==
LOC: M RAD 11:50
PROVIDERS: ATTEND Internal Medicine Medical Oncology
DX: C18.9 Malignant neoplasm of colon, unspecified (principal)

== ENCOUNTER → 2019-08-06 | Outpatient (POV) | payer MEDICARE ==
[~2019-08-06] VITALS: Ht 165.1 cm; Wt 56.8 kg
[~2019-08-06] MED LIST changes: -GASTROGRAFIN SOLUTION 30ML (Q9963) As Ordered ONE; -ISOVUE-370 76% 100ML VIAL (Q9967) As Ordered ONE
[2019-08-06 08:15] VITALS: BP 137/63
--- NOTE | 2019-08-07 08:15 | IRPN ---
[facility] IR Progress Note IR Progress Note DATE: Aug 06, 2019 FOLLOW-UP: Follow-up status post right chest port placement. Patient doing well. Did get IJ thrombus postplacement and she is on Lovenox. No pain or swelling. No fevers or chills. Port is being used without any problems. ON EXAMINATION: Port site looks well-healed. No redness, fluctuance or tenderness. Right neck swelling resolved. IMPRESSION: Port site healing well. Continue anticoagulations for 6 months, consider changing to oral anticoagulation. Thank you for this referral Allergies Coded Allergies: bee venom protein (honey bee) (Verified Adverse Reaction, Mild, vomitting/diarrhea, 05/09/19) VS,Fishbone, I+O VS, Fishbone, I+O Vital Signs Date Time Temp Pulse Resp B/P (MAP) Pulse Ox O2 Delivery O2 Flow Rate FiO2 08/06/19 08:15 98.2 75 16 137/63 (87) 99 Room Air FRANCISCO MCFADDEN MD Aug 07, 2019 08:15
== END ==
LOC: M IRPOV 08:10
PROVIDERS: ATTEND Radiology Diagnostic Radiology
DX: Z45.2 Encounter for adjustment and management of vascular access device (principal); Z79.01 Long term (current) use of anticoagulants

== ENCOUNTER → 2019-09-05 | Outpatient (CLI) | payer MEDICARE ==
[~2019-09-05] MED LIST changes: +COLA100C5 PO; +GENTLE IRON PO; +LIDO2.5C15; +METO25TA4 PO; +SYST1SOL OU; +[UNRECOGNIZED DRUG - CODE] PO
--- NOTE | 2019-09-05 12:23 | REP ---
Right upper quadrant sonography: History: Stage III colon carcinoma. Rule out liver metastatic disease. Elevated alk phos. Comparison CT study July 08, 2019. Sonographic findings: Scanning through right upper quadrant of the abdomen demonstrates a normal sized gallbladder with no evidence of stone, polyp, or wall thickening. The gallbladder is somewhat elongate however measuring near the upper range of normal at 8 cm. Common bile duct is normal measuring 0.5 cm in greatest diameter. No focal liver lesion is appreciated. No intrahepatic biliary ductal dilation is observed. There is no evidence of ascites. The right kidney measures 9.6 x 4.7 x 3.3 cm. There is a 0.4 cm cyst in the right kidney at mid pole level. There is a small quantity of pericardial fluid visible incidentally. This is unchanged from the July 08, 2019 CT study. Impression: Small pericardial effusion seen unchanged from [address] study. No evidence of hepatic mass. Gallbladder at the upper range of normal in size, 8 cm. No stone or polyp. Normal CBD. Electronically Signed by Alexander Phipps MD 09/05/2019 06:27 P
== END ==
LOC: M RAD 09:14
PROVIDERS: ATTEND Internal Medicine Medical Oncology
DX: C18.9 Malignant neoplasm of colon, unspecified (principal); I31.3 Pericardial effusion (noninflammatory)

== ENCOUNTER → 2019-09-23 | Outpatient (REF) | payer MEDICARE ==
[~2019-09-23] MED LIST changes: +ONDA8TAB10 PO; -ONDA8TAB7 PO
[2019-09-23 13:08] LABS: ALBUMIN 3.5 GM/DL (3.2-5.2); ALT/SGPT 94 U/L (12-78); BILIRUBIN,TOTAL 0.3 MG/DL (0.2-1.0); BLOOD UREA NITROGEN 15 MG/DL (7-18); CALCIUM LEVEL 8.6 MG/DL (8.8-10.2); CARBON DIOXIDE LEVEL 25 MEQ/L (21-32); CHLORIDE LEVEL 107 MEQ/L (98-107); GLOMERULAR FILTRATION RATE > 60.0 (>32); GLUCOSE, FASTING 72 MG/DL (70-100); POTASSIUM SERUM 4.4 MEQ/L (3.5-5.1); SODIUM LEVEL 140 MEQ/L (136-145); TOTAL PROTEIN 6.4 GM/DL (6.4-8.2)
== END ==
LOC: M SFHCLACO 12:23
PROVIDERS: ATTEND Physician Assistant
DX: I10 Essential (primary) hypertension (principal); E03.9 Hypothyroidism, unspecified

== ENCOUNTER → 2020-02-24 | Outpatient (CLI) | payer MEDICARE ==
[~2020-02-24] MED LIST changes: +GASTROGRAFIN SOLUTION 30ML (Q9963) As Ordered ONE; +ISOVUE-370 76% 100ML VIAL As Ordered ONE
--- NOTE | 2020-02-24 15:01 | REP ---
Clinical: History of colon cancer. Surveillance. Technique: Axial contrast enhanced images from the thoracic inlet to the upper abdomen (followed by CT of the abdomen and pelvis) using 100 ml Isovue 370 intravenous contrast material with coronal and sagittal re-formations. Comparison: 06/07/2019. Findings: The bilateral lung fatima are well-aerated with minimal scattered age-related scarring. No focal consolidation, significant nodule or mass lesion. No pleural effusion. No pneumothorax. Tracheobronchial tree is patent. No adenopathy. Mediastinum demonstrates atherosclerotic changes to the thoracic aorta and coronary arteries without aortic aneurysm or cardiomegaly. No pericardial effusion. Surrounding musculoskeletal structures demonstrate age-related changes. [id number] identified with tip in the right atrium. Impression: 1. Minimal scattered chronic changes. 2. No acute mediastinal or pleuroparenchymal process. No evidence for metastatic disease. Electronically Signed by Richard Shaffer MD 02/24/2020 02:52 P
--- NOTE | 2020-02-26 12:41 | REP ---
Clinical: History of colon cancer. Surveillance. Technique: Axial contrast enhanced images from the lung bases to the pubic symphysis using oral (per protocol) and 100 ml Isovue 370 intravenous contrast material with coronal and sagittal re-formations. Comparison: 07/08/2019. Findings: Liver, spleen, bilateral adrenal glands of the and kidneys appear relatively normal / stable. The gallbladder appears moderately distended but relatively normal in appearance. Surgical clips identified in the right upper quadrant which are adjacent to what appears to be the vertical portion of the duodenum where irregular low density changes are appreciated. These findings are similar to prior examination, but underlying pathology cannot definitively be excluded. The pancreas demonstrates mildly dilated duct to the duodenum at the somewhat irregular area described above. Endoscopy and ERCP may be of value for further investigation. The patient is noted to be status post right hemicolectomy and of the remaining small and large bowel appear relatively normal and without obstruction or acute inflammatory process. Pelvis demonstrates normal bladder and evidence for prior hysterectomy. No ascites. No free air. No retroperitoneal adenopathy. Atherosclerotic changes to the aorta and vasculature noted without aneurysm. Double structures demonstrate degenerative changes without obvious acute osseous abnormality. Impression: 1. Irregular appearance to the duodenum and associated findings as described above. Consideration for ERCP and GI consultation may be warranted. 2. Evidence of prior right hemicolectomy. 3. No further acute abdominopelvic pathology appreciated. No evidence for metastatic disease or obvious recurrence. Electronically Signed by Richard Shaffer MD 02/26/2020 12:31 P
== END ==
LOC: M RAD 12:50
PROVIDERS: ATTEND Internal Medicine Medical Oncology
DX: C18.9 Malignant neoplasm of colon, unspecified (principal); I70.0 Atherosclerosis of aorta; I25.10 Atherosclerotic heart disease of native coronary artery without angina pectoris
CPT/HCPCS: 71260; 74177; Q9963; Q9967

== ENCOUNTER → 2020-03-03 | Outpatient (CLI) | payer MEDICARE ==
[~2020-03-03] MED LIST changes: -GASTROGRAFIN SOLUTION 30ML (Q9963) As Ordered ONE; -ISOVUE-370 76% 100ML VIAL As Ordered ONE
--- NOTE | 2020-03-04 07:27 | REP ---
REASON: Limited deep vein ultrasound exam with images only of the right internal jugular and right subclavian vein. There is no ultrasonographic evidence of a deep vein thrombosis on this limited exam. Electronically Signed by Arben Pope DO 03/04/2020 09:28 A
== END ==
LOC: M RAD 11:14
PROVIDERS: ATTEND Radiology Diagnostic Radiology
DX: I82.401 Acute embolism and thrombosis of unspecified deep veins of right lower extremity (principal)

== ENCOUNTER → 2020-03-03 | Outpatient (POV) | payer MEDICARE ==
--- NOTE | 2020-03-04 11:56 | IRPN ---
[facility] IR Progress Note IR Progress Note DATE: Mar 03, 2020 Patient agreed to this telephone consultation. Duration of call 5 minutes. FOLLOW-UP: status post port placement last May, she developed neck pain, swelling and right internal jugular vein and subclavian thrombus. She continues on Eliquis since. Port is functioning well. No further neck pain or swelling. IMAGING: I personally reviewed the same day US right neck. There is flow in the right IJ and subclavian vein. IMPRESSION: Doing well post treatment for right IJ and subclavian vein thrombus related to port placement. Refer to med onc for decision when to stop anti coagulation based on other risk factors. This maybe continued for the duration the port is in or may be stopped and with follow up US in 2 months. Thank you for this referral cc Dr. Merissa Dan. Allergies Coded Allergies: bee venom protein (honey bee) (Verified Adverse Reaction, Mild, vomitting/diarrhea, 05/09/19) FRANCISCO MCFADDEN MD Mar 04, 2020 11:56
== END ==
LOC: M TMIRPOV 12:50
PROVIDERS: ATTEND Radiology Diagnostic Radiology
DX: Z45.2 Encounter for adjustment and management of vascular access device (principal)

== ENCOUNTER → 2020-03-24 | Outpatient (CLI) | payer MEDICARE ==
[~2020-03-24] MED LIST changes: +XARE20TA PO
--- NOTE | 2020-05-15 13:06 | REP ---
WHOLE BODY PET CT SCAN Study Date: 03/24/2020 COMPARISON: Whole body PET scan of 06/04/[address] of the chest, abdomen, and pelvis 02/24/2020. TECHNIQUE: Whole body PET CT scanning is performed from the skull base to the upper thighs as previously. This study was performed with 8.31 mCi of F18 FDG. NECK AND SUPRACLAVICULAR AREAS: There is again intense uptake in the right and left thyroid lobes as previously. This is compatible with thyroiditis. Maximal standard uptake value of thyroid today is 6.18. There are no other hypermetabolic foci in the neck or supraclavicular areas. CHEST: There are no hypermetabolic foci. This is unchanged. ABDOMEN, PELVIS, AND UPPER THIGHS: Patient has a history of ascending colon carcinoma and right hemicolectomy. This is unchanged. On the comparison abdomen/pelvis CT of 02/24/2020, there was an irregular appearance of the soft tissues in the area of the duodenum of uncertain significance. On the comparison PET scan, there was a focus of hypermetabolic activity adjacent to the descending duodenum adjacent to surgical clips with a standard uptake value of 12.3 of uncertain significance. This area is again identified today and appears larger in size and appears to extend inferiorly along the anterior margin of the right psoas muscle but does not extend to the bladder. It is intensely hypermetabolic and similar to the right renal collecting system with a maximal standard uptake value today of 19.9. The maximal standard uptake value in the right renal pelvis is 28.5. The possibility of urinoma is raised. Follow-up CT scan of the abdomen and pelvis with IV contrast including delayed imaging to allow for contrast filling of this structure might be considered for further evaluation. There were no delayed images on the comparison abdomen and pelvis CT of 02/24/2020. Alternatively MRI might be considered without and with gadolinium. There are no other hypermetabolic foci in the abdomen, pelvis, or upper thighs. IMPRESSION: There is a focus of hypermetabolic uptake adjacent to the duodenum and extending inferiorly along the anterior margin of the psoas muscle, but not extending to the bladder, larger in size than on the comparison PET scan and corresponding to a nondescript soft tissue mass-like density on the comparison CT. The hypermetabolic intensity of this is similar to the right renal collecting system. This may represent a urinoma. Follow-up CT with IV contrast including delayed images or follow-up MRI without and with gadolinium with delayed imaging might be considered for further evaluation. There was hypermetabolic uptake in the thyroid lobes bilaterally, as previously, compatible with thyroiditis. There are no other hypermetabolic foci. This study was performed with 8.31 mCi of F18 FDG. MTDD
== END ==
LOC: M PLARAD 08:00
PROVIDERS: ATTEND Internal Medicine Medical Oncology
DX: C18.2 Malignant neoplasm of ascending colon (principal); R93.3 Abnormal findings on diagnostic imaging of other parts of digestive tract
CPT/HCPCS: 78815; A9552

== ENCOUNTER → 2020-05-12 | Outpatient (CLI) | payer MEDICARE ==
[~2020-05-12] MED LIST changes: +PROHANCE 279.3MG/ML 5ML VIAL As Ordered ONE
--- NOTE | 2020-05-12 14:08 | REPVR ---
PROCEDURE INFORMATION: Exam: MR Abdomen Without and With Contrast Exam date and time: 05/12/2020 9:54 AM Age: 85 years old Clinical indication: Abnormal findings; Abnormal radiologic finding of the abdomen; Radiologic exam and body structure: Pet CT; Additional info: Lesion on duodenum TECHNIQUE: Imaging protocol: MR of the abdomen without and with intravenous contrast. Contrast material: PROHANCE; Contrast volume: 5 ml; Contrast route: INTRAVENOUS (IV); COMPARISON: PT PET/CT Skull/mid thigh 03/24/2020 10:20 AM FINDINGS: Liver: No mass. Gallbladder and bile ducts: Unremarkable. No stones. No ductal dilation. Pancreas: Unremarkable. No ductal dilation. Spleen: Unremarkable. No splenomegaly. Adrenals: Unremarkable. No mass. Kidneys and ureters: Unremarkable. No solid mass. No hydronephrosis. Stomach and bowel: In the area of PET abnormality there is a suspicion for 25 x 19 by 20 mm mass involving the duodenum involving its proximal 3rd portion. This is near the sphincter. This lesion has low enhancement especially on delayed imaging. Is mostly dark on T2 weighted images and could represent a fibrous or muscle based type lesion. However, there is some motion noted on the study due to likely bowel movement on 5 mm thick images. Intraperitoneal space: No free fluid. Arteries: No abdominal aortic aneurysm. Bones/joints: Unremarkable. Soft tissues: Unremarkable. IMPRESSION: There is suspected lesion noted involving the proximal aspect of the 3rd portion the duodenum near the sphincter. This does appear to have low-grade enhancement. However, MRI scanning is not best imaging modality for evaluation of the bowel or bowel lesions. Consider direct visualization or CT scanning for further and better evaluation of the bowel. Electronically signed by: Pradip Moran On 05/12/2020 14:08:29 PM
== END ==
LOC: M RAD 08:47
PROVIDERS: ATTEND Internal Medicine Medical Oncology
DX: K31.9 Disease of stomach and duodenum, unspecified (principal)
CPT/HCPCS: 74183; A9576

== ENCOUNTER → 2020-06-03 | Outpatient (CLI) | payer MEDICARE ==
[~2020-06-03] MED LIST changes: -PROHANCE 279.3MG/ML 5ML VIAL As Ordered ONE
--- NOTE | 2020-06-08 15:15 | REP ---
THYROID ULTRASOUND HISTORY: Nodules. TECHNIQUE: Real-time sonographic evaluation of the thyroid is performed. FINDINGS: Right lobe measures 4.6 x 1.4 x 1.8 cm and left lobe 4.5 x 1.3 x 1.4 cm. Echotexture is diffusely heterogeneous. In the right upper pole there is a hyperechoic nodule, which measures 6 x 4 x 5 mm. There is a hypoechoic nodule with a calcific rim in the mid right lobe measuring 5 mm in diameter. In the lower pole on the right, there is a complex cystic and solid area measuring 1.8 x 0.8 x 1.3 cm. In the left upper pole, there is an oval hyperechoic nodule 1.1 x 0.5 x 1.0 cm. There is an adjacent 3-mm cyst. IMPRESSION: Heterogeneous thyroid with multiple nodules as discussed above. According to ACR TI-RADS criteria, the nodule in the mid right lobe which is very hypoechoic with a calcific rim, measuring 5 mm in diameter, is classified as a TR5 lesion. Given its size of 5 mm, follow-up is recommended in six months. The other nodules bilaterally are considered TR2 or TR3 with no fine needle aspiration (FNA) or follow-up required. MTDD
== END ==
LOC: M RAD 13:18
PROVIDERS: ATTEND Internal Medicine Medical Oncology
DX: C18.9 Malignant neoplasm of colon, unspecified (principal)

== ENCOUNTER → 2020-07-15 | Outpatient (CLI) | payer MEDICARE ==
--- NOTE | 2020-07-16 05:00 | REP ---
INDICATION: RENAL INSUFF COMPARISON: None TECHNIQUE: Real time lu scale ultrasound examination using curved array transducer. FINDINGS: The kidneys are normal in reniform shape with increased parenchymal echotexture and increased central sinus fat consistent with age-related medical renal disease. No hydronephrosis, nephrolithiasis, or renal mass lesion appreciated. Right kidney measures 9.1 x 5.0 x 3.4 cm. Left kidney measures 9.6 x 4.2 x 4.1 cm and includes 8 mm midpole cortical cyst and 9 mm lower pole cortical cyst. The bladder is grossly under distended and unremarkable. IMPRESSION: 1. Evidence for chronic medical renal disease. No hydronephrosis. 2. Subcentimeter left renal cysts appear benign. <Electronically signed by Richard Shaffer > 07/16/20 [id number]
== END ==
LOC: M RAD 14:04
PROVIDERS: ATTEND Internal Medicine Medical Oncology
DX: N28.1 Cyst of kidney, acquired (principal); N18.9 Chronic kidney disease, unspecified; C18.9 Malignant neoplasm of colon, unspecified

== ENCOUNTER 2020-08-14 18:26 | Inpatient (IN) | payer MEDICARE ==
[~2020-08-14] VITALS: Ht 165.1 cm; Wt 52.2 kg
[~2020-08-14 18:26] MED LIST changes: +FAMO20TA PO
[2020-08-14] MEDS ORDERED: METOCLOPRAMIDE 10 MG TAB PO ONE (20:00)
--- NOTE | 2020-08-14 20:36 | REP ---
INDICATION: known gastric outlet lesion, upper abd pain COMPARISON: None. TECHNIQUE: Upright view of the chest with supine and upright views of the abdomen and pelvis. FINDINGS: Frontal upright view of the chest demonstrates no acute cardiopulmonary process or free air below the diaphragm to suspect pneumoperitoneum. Supine and upright views of the abdomen and pelvis demonstrate nonspecific bowel gas pattern without obvious obstruction or perforation. No organomegaly. Phleboliths identified in the pelvis. Surgical clips in the right upper quadrant suggest prior cholecystectomy. Skeletal structures demonstrate age-related degenerative changes. IMPRESSION: Nonspecific bowel gas pattern. <Electronically signed by Richard Shaffer > 08/14/202031
[2020-08-14] MEDS ORDERED: FLEET ENEMA PR ONE (21:00)
[2020-08-14] MEDS ORDERED: REGL10TA6 PO (22:08)
[2020-08-14] MEDS ORDERED: ONDANSETRON 4 MG ORAL DISINTEGRATING TAB PO ONE (22:15)
[2020-08-14] MEDS ORDERED: MAGNESIUM CITRATE 300 ML BTL PO ONE (22:15)
[2020-08-14] MEDS ORDERED: NS 1,000 ML IV ONE (23:00)
[2020-08-14 23:23] LABS: BASO % 0.3 % (0.0-1.0); EOS % 0.1 % (0.0-3.0); HEMATOCRIT 34.1 % (36.0-47.0); HEMOGLOBIN 10.7 g/dl (12.0-15.5); LYMPH # 1.3 10^3/uL (1.5-5.0); LYMPH % 14.3 % (24.0-44.0); MEAN CORPUSCULAR HEMOGLOBIN 27.5 pg (27.0-33.0); MEAN CORPUSCULAR HGB CONC 31.4 g/dl (32.0-36.5); MEAN CORPUSCULAR VOLUME 87.7 fl (80.0-96.0); MONO # 0.8 10^3/uL (0.0-0.8); NEUTROPHILS # 7.1 10^3/uL (1.5-8.5); PLATELET COUNT, AUTOMATED 485 10^3/uL (150-450); RED BLOOD COUNT 3.89 10^6/uL (4.00-5.40); WHITE BLOOD COUNT 9.3 10^3/uL (4.0-10.0)
[2020-08-15 00:07] LABS: ALT/SGPT 22 IU/L (0-32); BLOOD UREA NITROGEN 23 MG/DL (7-18); CALCIUM LEVEL 9.4 MG/DL (8.8-10.2); CARBON DIOXIDE LEVEL 27 mmol/L (20-29); CHLORIDE LEVEL 100 MEQ/L (98-107); CK-MB VALUE MASS 1.1 NG/ML (<3.6); CPK CREATINE PHOSPHOKINASE 41 U/L (26-192); CREATININE FOR GFR 1.38 MG/DL (0.55-1.30); GLOMERULAR FILTRATION RATE 38.9 (>32); GLUCOSE, FASTING 134 MG/DL (70-100); MB/CK RELATIVE INDEX 2.68 (< OR =4); POTASSIUM SERUM 4.4 MEQ/L (3.5-5.1); SODIUM LEVEL 137 MEQ/L (136-145)
[2020-08-15 00:08] LABS: ALBUMIN 3.3 GM/DL (3.2-5.2); BILIRUBIN,DIRECT < 0.1 MG/DL (0.0-0.2); BILIRUBIN,TOTAL 0.4 MG/DL (0.2-1.0); LIPASE 949 U/L (73-393); TOTAL PROTEIN 6.4 GM/DL (6.4-8.2); TROPONIN I < 0.02 NG/ML (< 0.10)
[2020-08-15] MEDS ORDERED: ISOVUE-370 76% 100ML VIAL As Ordered ONE (00:31)
--- NOTE | 2020-08-15 01:01 | REPVR ---
PROCEDURE INFORMATION: Exam: CT Abdomen And Pelvis With Contrast Exam date and time: 08/15/2020 12:18 AM Age: 85 years old Clinical indication: Bloating and constipation and nausea and other: Known duodenal mass; Abdominal pain; Generalized; Additional info: Intractable nausea, known duodenal mass TECHNIQUE: Imaging protocol: Computed tomography of the abdomen and pelvis with intravenous contrast. Radiation optimization: All CT scans at this facility use at least one of these dose optimization techniques: automated exposure control; mA and/or kV adjustment per patient size (includes targeted exams where dose is matched to clinical indication); or iterative reconstruction. Contrast material: ISO; Contrast volume: 100 ml; Contrast route: INTRAVENOUS (IV); COMPARISON: CT ABD PELVIS WITH CONTRAST 02/24/2020 2:44 PM FINDINGS: Liver: Liver is unremarkable. Gallbladder and bile ducts: Common bile duct is dilated measuring up to 11 mm. No obstructing biliary tract calculi. Gallbladder is also dilated. Mild intrahepatic biliary duct dilation. Pancreas: The duodenal mass is not separable from the adjacent pancreatic head. The main pancreatic duct is dilated, similar to the prior exam. No pancreatic mass or inflammatory changes. Spleen: Small cysts in the spleen. Adrenal glands: Normal. No mass. Kidneys and ureters: Normal. No hydronephrosis. Stomach and bowel: The stomach and 1st portion of the duodenum are very dilated containing a large amount of fluid. An ill-defined mass in the 2nd portion of the duodenum has increased in size, measuring approximately 4.7 x 4.4 cm. The mass appears to completely obstruct the duodenal lumen. The small bowel and colon are completely decompressed. No inflammatory changes in the GI tract. Appendix: There has been prior appendectomy. Intraperitoneal space: No pneumatosis or pneumoperitoneum. Vasculature: Unremarkable. No abdominal aortic aneurysm. Lymph nodes: Unremarkable. No enlarged lymph nodes. Urinary bladder: Unremarkable as visualized. Reproductive: Unremarkable as visualized. Bones/joints: There are advanced degenerative changes in the spine and pelvis. Soft tissues: Unremarkable. IMPRESSION: 1. High-grade gastric and duodenal obstruction due to enlarging mass in the 2nd portion of the duodenum. Small bowel and colon are near completely decompressed. 2. Worsening intrahepatic and extrahepatic biliary duct dilation. Persistent pancreatic duct dilation. No signs of acute pancreatitis. Electronically signed by: Sumeet Linda On 08/15/2020 01:00:45 AM
[2020-08-15] MEDS ORDERED: XARE20TA PO (02:33)
[2020-08-15] MEDS ORDERED: ONDA8TAB10 PO (02:33)
[2020-08-15] MEDS ORDERED: FAMO20TA4 PO (02:33)
[2020-08-15 03:19] LABS: RSV AMPLIFICATION NEGATIVE (NEGATIVE)
[2020-08-15] MEDS: NS 1,000 ML IV SCH ×3 (03:48→21:14)
[2020-08-15] MEDS ORDERED: POLYVINYL ALCOHOL OPHTH SOLN 15 ML(LIQUITEARS) OU PRN (04:15)
[2020-08-15 04:26] VITALS: BP 132/73
[2020-08-15] MEDS ORDERED: ONDANSETRON 4MG/2ML VIAL IV PRN (04:45)
--- NOTE | 2020-08-15 05:31 | IPNPDOC ---
Text Note Date of Service The patient was seen on 08/15/20. NOTE Time of service 2:45 AM is an 85-year-old female with a history of metastatic stage III : Adenocarcinoma, status post right hemicolectomy and neoadjuvant chemotherapy along with CKD 3, Hypertension, dyslipidemia and hypothyroidism who presented with complaints of nausea and an obstipation; she will be admitted for management of small bowel obstruction. #SBO - admit to medical floor/nothing by mouth/IV fluids/NG to intermittent suction/follow up with Dr. Schwarz in the morning / will ask the day time team consider Pallative care consult #Normocytic anemia with thrombocytosis is 2/2 JANELL. We reviewed her recent iron panel. - hold oral iron #Elevated lipase. She doesn't meet the Deborah criteria to diagnose pancreatitis. Rest per 's H&P VS,Fishbone, I+O VS, [place], I+O Laboratory Tests 08/14/20 23:12 Vital Signs Date Time Temp Pulse Resp B/P (MAP) Pulse Ox O2 Delivery O2 Flow Rate FiO2 08/15/20 04:26 98.3 93 18 132/73 (92) 94 Room Air I&O- Last 24 Hours up to 6 AM 08/15/20 06:00 Intake Total 1020 ml Output Total 0 ml Balance 1020 ml LEIF RITTER MD Aug 15, 2020 05:31
--- NOTE | 2020-08-15 06:17 | HPEPDOC ---
[facility] Medical History & Physical Date of Admission Aug 15, 2020 Date of Service: Aug 15, 2020 Primary Care Physician: Gina Manzo PA-C, LAC Other Provider Dr. Mandie Georges, hematology oncology; Dr. 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 She has had intermittent nausea over the past 2-3 weeks, but reports over the past 2 days it has become much more intense and consistent. She did have 1 episode of nonbloody emesis on the evening of 08/13. She has not had a bowel movement in the past 3-4 days, and her most recent bowel movements are v ofelia limited in amount and mostly watery with very small fine form stool. She has had decreased oral intake secondary to the nausea and reports feeling abdominal distention and bloating after eating even small portions of food. She also reports associated generalized weakness. Of note, repeat scans in the fall of 2019, along with a 07/29 EGD in [place], showed her colon cancer had spread to the duodenum in the form of a near obstructing tumor. She is not currently receiving any treatment for her cancer and is in the process of working with her medical oncologist to decide whether or not to pursue second line chemotherapy versus immunotherapy. She had previously discussed possibly getting a duodenal stent, but recently decided against it., Per report, patient has also been discussing palliative care options with her bindery helper. In the ED, imaging showed high grade gastric and duodenal obstruction secondary to a mass in second portion of the duodenum with near decompression of small bowel and colon. Patient was given both Zofran and Reglan for nausea and both Fleet enema and mag citrate were given to help get what stool could be removed, evacuated. An NG tube was placed. That subsequently significantly improved. Her abdominal discomfort with over a liter of dark brown fluid removed. Labs were notable anemia, mild thrombocytosis, and elevated lipase of 949. The emergency provider also contacted the on-call general surgeon (Dr. Schwarz) who will be meeting with the patient later this morning (08/15/20) to discuss possible procedure to have G/J-tubes inserted. Dior was subsequently admitted under the care of the hospitalist service, chiefly due to gastric and duodenal outlet obstruction secondary to metastatic colon cancer and possible G/J-tube implantation. 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 -DVT of right internal jugular vein 06/18/2019 after port placement, currently on Xarelto -Iron deficiency anemia -Essential hypertension -Hypothyroidism PAST SURGICAL HISTORY: -Hemicolectomy and R1 surgical resection of residual disease after initial colon cancer diagnosis in March 2019 -Total abdominal hysterectomy and bilateral salpingo-oophorectomy, 1974 SOCIAL HISTORY: , lives with her , Jc in [facility]. Has 3 children (one son and 2 daughters). Her daughter Rosamaria Hoffmann ([phone]), along with her , are her healthcare proxies (the first, then daughter second). Rosamaria is her power of attorney recruiter. She is a former housewife and licensed nurse. She is a never smoker. FAMILY HISTORY: Father: at 85 years old, kidney cancer Mother: at 90 years old, hypertension and polymyalgia rheumatica. One sister with Alzheimer disease ALLERGIES: Please see below. REVIEW OF SYSTEMS: CONSTITUTIONAL: Reports subjective recent unintentional weight loss. Denies recent fever, chills, night sweats HEENT: Denies eye pain, vision problems, tinnitus, ear pain, rhinorrhea, dysphagia or odynophagia. CARDIOVASCULAR: Denies chest pain, chest pressure, or palpitations RESPIRATORY: Reports some dyspnea on exertion. Otherwise, denies shortness of breath, cough, pleuritic chest pain, or productive sputum GASTROINTESTINAL: Reports nausea with one episode of vomiting on 08/13 and abdominal discomfort as discussed in HPI. Also, reports no bowel movement in the last 3-4 days along with a decreased appetite secondary to early satiety and abdominal distention following limited food intake. Denies recent blood in the stool. GENITOURINARY: Denies dysuria, hematuria NEUROLOGICAL: Reports chronic bilateral hand and foot paresthesias/numbness secondary to chemotherapy. Denies headache, dizziness, lightheadedness, syncope, loss of consciousness, recent falls, or gait instability HEMATOLOGIC/LYMPHATIC: Denies easy bleeding or bruising. Also denies any new lumps or bumps. HOME MEDICATIONS: Please see below. PHYSICAL EXAMINATION: VITAL SIGNS: Temperature 98.7, pulse, 108, respiratory rate, 18, blood pressure, 106/66, pulse oximetry, 100 % on room air. GENERAL APPEARANCE: Pleasant, frail, elderly female sitting upright in bed. NG tube in place to the right near. Alert and oriented 3. No acute di stress. Appears weakened. HEENT: Normocephalic, atraumatic. Wearing eyeglasses. Noninjected, anicteric sclera. Mild conjunctival pallor. Moist mucous membranes. Upper dentures present.. There is an NG tube present through the right near that is suctioning off dark brown colored fluid. NECK: Supple. Trachea midline. No lymphadenopathy appreciated. CHEST: There is a visible port under the skin of the right upper chest with superiorly extending catheter. Area of skin surrounding port, non-erythematous, nonindurated, and there is no warmth or discharge. CARDIOVASCULAR: Borderline tachycardic with regular rhythm. Normal S1, S2. No murmurs or rubs appreciated. LUNGS: Somewhat diminished breath sounds posteriorly in the bases with decreased tidal volume. No adventitious breath sounds are appreciated. Breathing room air. Speaking full sentences. Symmetric chest expansion. ABDOMEN: Only able to examine abdomen with patient seated upright due to recent NG tube placement. Soft, and her of the right upper quadrant. Nondistended. No guarding or rigidity. There are surgical incisions visible vertically around the umbilicus. Hypoactive bowel sounds. MUSCULOSKELETAL: 5/5 muscle strength testing of upper and lower extremities bilaterally EXTREMITIES: Biateral lower extremities are free of edema. No signs of clubbing or cyanosis. 2+ radial pulses bilaterally. NEUROLOGICAL: Awake, alert and oriented 3. No focal neurologic deficits appreciated. Non-dysarthric speech. Responding appropriate QUESTIONS and commands. PSYCHIATRIC: Mood and affect appear appropriate. LABORATORY DATA: Please see below. IMAGING: Abdomen Flat Upright and PA Xray, 08/14/2020- FINDINGS: Frontal upright view of the chest demonstrates no acute cardiopulmonary process or free air below the diaphragm to suspect pneumoperitoneum. Supine and upright views of the abdomen and pelvis demonstrate nonspecific bowel gas pattern without obvious obstruction or perforation. No organomegaly. Phleboliths identified in the pelvis. Surgical clips in the right upper quadrant suggest prior cholecystectomy. Skeletal structures demonstrate age-related degenerative changes. IMPRESSION: Nonspecific bowel gas pattern. Abdomen/Pelvis CT, 08/15/2020- FINDINGS: Liver: Liver is unremarkable. Gallbladder and bile ducts: Common bile duct is dilated measuring up to 11 mm. No obstructing biliary tract calculi. Gallbladder is also dilated. Mild intrahepatic biliary duct dilation. Pancreas: The duodenal mass is not separable from the adjacent pancreatic head. The main pancreatic duct is dilated, similar to the prior exam. No pancreatic mass or inflammatory changes. Spleen: Small cysts in the spleen. Adrenal glands: Normal. No mass. Kidneys and ureters: Normal. No hydronephrosis. Stomach and bowel: The stomach and 1st portion of the duodenum are very dilated containing a large amount of fluid. An ill-defined mass in the 2nd portion of the duodenum has increased in size, measuring approximately 4.7 x 4.4 cm. The mass appears to completely obstruct the duodenal lumen. The small bowel and colon are completely decompressed. No inflammatory changes in the GI tract. Appendix: There has been prior appendectomy. Intraperitoneal space: No pneumatosis or pneumoperitoneum. Vasculature: Unremarkable. No abdominal aortic aneurysm. Lymph nodes: Unremarkable. No enlarged lymph nodes. Urinary bladder: Unremarkable as visualized. Reproductive: Unremarkable as visualized. Bones/joints: There are advanced degenerative changes in the spine and pelvis. Soft tissues: Unremarkable. IMPRESSION: 1. High-grade gastric and duodenal obstruction due to enlarging mass in the 2nd portion of the duodenum. Small bowel and colon are near completely decompressed. 2. Worsening intrahepatic and extrahepatic biliary duct dilation. Persistent pancreatic duct dilation. No signs of acute pancreatitis. MICROBIOLOGY: Please see below. ASSESSMENT & PLAN: This is an 85yo female w/ notable h/o stage III colon cancer at initial diagnosis that has now with spread to duodenum, right IJ DVT on Xarelto, hypertension, hypothyroidism, who presented to the ED on 08/14/20 with worsening nausea and 1 episode of nonbloody vomiting as well as abdominal discomfort without a bowel movement with a past 3-4 days. Imaging in the ED revealed high- grade gastric and duodenal obstruction secondary to tumor in the second part of the duodenum and corresponding near decompression of small bowel and colon. Dr. Schwarz of general surgery was contacted by the ED regarding possible placement of G/J-tube. #High-grade gastric and duodenal outlet obstruction 2/2 duodenal tumor from metastatic colon cancer -NG tube placed and has already suctioned off over 1 L of dark brown fluid. Patient's nausea and abdominal discomfort has significantly improved after NG tube placement. Surgical consultation has been placed and Dr. Schwarz discussed the case with the ED and will be seeing the patient later this morning to discuss possible procedure to place G/J-tubes. In preparation for possible surgical procedure, patient is currently npo and her home Xarelto currently being held. Gentle IV fluids have been ordered. -She follows with both gastroenterology and hematology oncology as outpatient and is currently in the process of deciding on potential palliative care options and treatments. -Of note, patient is status post hemicolectomy and R1 residual disease surgical resection #Metastatic colon cancer with tumor spread to duodenum -Patient follows with Dr. Mandie Georges of medical oncology as an outpatient. She received 06/08 total FOLFOX chemotherapy treatments through November 2019 and is status post hemicolectomy and residual disease resection. She is not currently on any treatments and is in the process of working with her oncologist to decide on palliative chemotherapy versus immunotherapy. #Elevated lipase -Lipase was 949 on presentation -CT abdomen and pelvis showed no signs of active pancreatitis -Using the [place] criteria for pancreatitis: patient did have abdominal pain but this is more likely secondary to her tumor burden; the lipase is not quite 3 times upper limit of normal; and as stated above, imaging showed no active signs of pancreatitis. -Gentle IV fluids ordered #Thrombocytosis, mild -Initial PLT of 485. This is likely the result of iron deficiency anemia in the context of her active malignancy. #Normocytic normochromic anemia secondary to iron deficiency -VPt follows as outpatient with medical oncology/hematology and is believed the duodenal tumor is likely the cause of patient's AJNELL. She had been on oral iron supplementation, but was unable to consistently take it because of GI symptoms related to cancer. She and her oncologist/bottoming room inspector have agreed to start IV iron at outpatient appointment last week. #CKD Stage IV -Renal ultrasound on 07/15/2020 showed evidence for chronic medical renal disease with no hydronephrosis. Patient had been planning to see nephrology as an outpatient, but this is been deferred due to worsening status of her cancer. -Accolade GFR was 38%. On presentation today #H/o right internal jugular vein DVT, May 2019, currently on Xarelto -Patient's home Xarelto being held in preparation for possible procedure later today #Essential hypertension -Patient's home oral metoprolol was continued. Due to the fact that she has NG tube, just prior to administration of metoprolol. Orders have been made for tube to be clamped and remained clamped for 30 minutes after getting the metoprolol so as to ensure absorption. Reason of continuation of metoprolol is to limit risk of rebound tachycardia, tachyarrhythmias, or atrial fibrillation #Hypothyroidism -Home oral levothyroxine being held due to nothing by mouth status and NG tube. Have ordered a dose equivalent IV levothyroxine in the meantime. #Advanced directives: Patient's healthcare proxy is her , first, then her daughter Rosamaria. Rosamaria is her POA. Patient reported upon admission that she wants to be full code, despite the fact a found living will was a DNR/DNI. #DVT prophylaxis: Teds and sequentials; home Xarelto being held in preparation for possible procedure later today Disposition: Pending possible procedure today w/ gen sx for G/J tube placement Vital Signs Vital Signs Date Time Temp Pulse Resp B/P (MAP) Pulse Ox O2 Delivery O2 Flow Rate FiO2 08/15/20 04:26 98.3 93 18 132/73 (92) 94 Room Air Laboratory Data Labs 24H Laboratory Tests 2 08/14/20 23:12: Immature Granulocyte % (Auto) 0.3, Neutrophils (%) (Auto) 76.0H, Lymphocytes (%) (Auto) 14.3L, Monocytes (%) (Auto) 9.0H, Eosinophils (%) (Auto) 0.1, Basophils (%) (Auto) 0.3, Neutrophils # (Auto) 7.1, Lymphocytes # (Auto) 1.3L, Monocytes # (Auto) 0.8, Eosinophils # (Auto) 0.0, Basophils # (Auto) 0.0, Nucleated Red Blood Cells % (auto) 0.0, Anion Gap 10, Glomerular Filtration Rate 38.9, Lactic Acid Level 2.0, Calcium Level 9.4, Total Bilirubin 0.4, Direct Bilirubin < 0.1, Aspartate Amino Transf (AST/SGOT) 14, Alanine Aminotransferase (ALT/SGPT) 22, Alkaline Phosphatase 50, Total Creatine Kinase 41, Creatine Kinase MB 1.1, Creatine Kinase MB Relative Index 2.68, Troponin I < 0.02, Total Protein 6.4, Albumin 3.3, Albumin/Globulin Ratio 1.1L, Lipase 949H 08/15/20 02:30: Coronavirus (COVID-19)(PCR) NEGATIVE, Influenza Type A (RT-PCR) NEGATIVE, Influenza Type B (RT-PCR) NEGATIVE, Respiratory Syncytial Virus (PCR) NEGATIVE CBC/BMP Laboratory Tests 08/14/20 23:12 Home Medications Scheduled Docusate Sodium (Colace) 100 Mg Capsule, 100 MG PO DAILY Epinephrine (Epipen 2-Liam) 0.3 Mg/0.3 Ml Auto.injct, 1 SYRINGE IM ONCE Famotidine (Famotidine) 20 Mg Tablet, 20 MG PO BID Glucosamine/Chondr Francis A Sod (Cidaflex Tablet) 1 Each Tablet, 1,000 MG PO DAILY Levothyroxine Sodium (Levothyroxine Sodium) 88 Mcg Tablet, 88 MCG PO DAILY Metoprolol Tartrate (Metoprolol Tartrate) 25 Mg Tablet, 25 MG PO QAM Metoprolol Tartrate (Metoprolol Tartrate) 25 Mg Tablet, 50 MG PO QHS patient states has not taken in a few days since bp has been low Rivaroxaban (Xarelto) 20 Mg Tablet, 20 MG PO DAILY [Gentle Iron] , 25 MG PO DAILY Scheduled PRN Ondansetron HCl (Ondansetron HCl) 8 Mg Tablet, 8 MG PO Q6H PRN for NAUSEA OR VOMITING Propylene Glycol/Peg 400 (Systane 0.3-0.4% Eye Drops) 15 Ml Drops, 1 DROP OU BID PRN for DRY EYES Allergies Coded Allergies: bee venom protein (honey bee) (Verified Adverse Reaction, Mild, vomitting/diarrhea, 05/09/19) A-FIB/CHADSVASC A-FIB History Current/History of A-Fib/PAF?: No Current PO Anticoag Therapy: Yes (takes Xarelto as outpatient. Due to history of right IJ DVT) GME ATTESTATION GME ATTESTATION My faculty preceptor for this patient encounter was physically present during the encounter and was fully available. All aspects of the patient interview, examination, medical decision making process, and medical care plan development were reviewed and approved by the faculty preceptor. The faculty preceptor is aware and concurs with the plan as stated in the body of this note and will attest to such by his/her cosignature. ATTENDING NOTE Pls see my progress note from Aug 15 for my addendum. MAGNOLIA MARTINEZ D.O. Aug 15, 2020 06:17 LEIF RITTER MD Aug 25, 2020 07:17
[2020-08-15 07:39] LABS: HEMATOCRIT 29.6 % (36.0-47.0); HEMOGLOBIN 9.6 g/dl (12.0-15.5); MEAN CORPUSCULAR HEMOGLOBIN 28.5 pg (27.0-33.0); MEAN CORPUSCULAR HGB CONC 32.4 g/dl (32.0-36.5); MEAN CORPUSCULAR VOLUME 87.8 fl (80.0-96.0); PLATELET COUNT, AUTOMATED 402 10^3/uL (150-450); RED BLOOD COUNT 3.37 10^6/uL (4.00-5.40); WHITE BLOOD COUNT 9.6 10^3/uL (4.0-10.0)
[2020-08-15 08:06] LABS: CALCIUM LEVEL 8.5 MG/DL (8.8-10.2); CREATININE FOR GFR 1.12 MG/DL (0.55-1.30); GLOMERULAR FILTRATION RATE 49.5 (>32)
[2020-08-15] MEDS: METOPROLOL TART 25 MG TABLET PO SCH (08:45)
[2020-08-15] MEDS ORDERED: METOPROLOL 5 MG/5 ML VIAL IV ONE ×2 (09:00→21:00)
[2020-08-15] MEDS ORDERED: LEVOTHYROXINE 100MCG (0.1MG) VIAL IV ONE (09:00)
[2020-08-15 14:00] VITALS: BP 110/61
[2020-08-15 19:44] VITALS: BP 111/60
[2020-08-15] MEDS: METOPROLOL TART 50 MG TAB PO SCH (21:14)
[2020-08-16 05:37] LABS: HEMATOCRIT 28.2 % (36.0-47.0); HEMOGLOBIN 8.9 g/dl (12.0-15.5); MEAN CORPUSCULAR HEMOGLOBIN 28.5 pg (27.0-33.0); MEAN CORPUSCULAR HGB CONC 31.6 g/dl (32.0-36.5); MEAN CORPUSCULAR VOLUME 90.4 fl (80.0-96.0); PLATELET COUNT, AUTOMATED 327 10^3/uL (150-450); RED BLOOD COUNT 3.12 10^6/uL (4.00-5.40); WHITE BLOOD COUNT 7.9 10^3/uL (4.0-10.0)
[2020-08-16 06:01] LABS: ALBUMIN 2.6 GM/DL (3.2-5.2); BILIRUBIN,TOTAL 0.4 MG/DL (0.2-1.0); CALCIUM LEVEL 7.7 MG/DL (8.8-10.2); CREATININE FOR GFR 0.95 MG/DL (0.55-1.30); GLOMERULAR FILTRATION RATE 59.8 (>32); TOTAL PROTEIN 4.8 GM/DL (6.4-8.2)
[2020-08-16 06:12] VITALS: BP 130/69
[2020-08-16] MEDS: METOPROLOL TART 25 MG TABLET PO SCH (09:04)
[2020-08-16] MEDS: NS 1,000 ML IV SCH ×2 (11:19→23:12)
--- NOTE | 2020-08-16 12:40 | IPN ---
PROGRESS NOTE DATE: 08/15/2020 SUBJECTIVE: The patient overnight is not having any nausea and no vomiting; however, she is starting to get hungry and overall, her white count still is maintaining normal. However, she still has an elevated lipase. Not complaining of any specific abdominal pain at this time. OBJECTIVE: She has been afebrile. Vital signs are stable. Her urine output seems to be adequate with the IV fluids going in. Her abdomen is soft, nontender, and nondistended. ASSESSMENT AND PLAN: The patient has a gastric outlet obstruction. He nasogastric (NG) tube output is actually a fair bit. It is about 800 this morning and some of that may be secondary to some ice chips, but it may also be that some of the pancreatic/biliary fluids are going retrograde into the stomach as well. In any case, it does not overall change the plan; but at this point, I would recommend that we go ahead with the planned gastrostomy and jejunostomy tube. This has been discussed with her and she would like to proceed with this as soon as possible. We are awaiting the Donte to work out of her system and we will put this on the schedule for tomorrow.
[2020-08-16 14:00] VITALS: BP 114/72
--- NOTE | 2020-08-16 17:30 | IPNPDOC ---
Text Note Date of Service The patient was seen on 08/16/20. NOTE Subjective: Patient seen and examined at bedside. She tells me she's feeling a little better today. She still has some abdominal discomfort but has improved. She understands she will probably go for surgery as discussed with Dr. Schwarz yesterday. She denies any chest pain or shortness of breath. She has her nasogastric tube in place which she says a little uncomfortable but bearable. We had a discussion this morning regarding her goals of care and she wished to complete a moslt form with me indicating her wishes that she is okay with a long-term feeding tube but she does not wish to be intubated or resuscitated. Objective: Constitutional: Awake and alert, in no apparent distress ENT: Sclera are clear. Mucosa is moist. Respiratory: Lungs CTA bilaterally. No respiratory distress. No use of accessory muscles. Cardiovascular: RRR S1 and S2 are normal, no murmur Gastrointestinal: Abdomen is soft, non distended, non tender, BS present. Musculoskeletal: No edema. No joint deformities. RUE 5/5, LUE 5/5, BLE 5/5 Neurologic: No focal neurological deficit. Mental Status: A&O x3, normal affect Skin: Warm, dry Assessment/plan: is an 85-year-old female with a history of metastatic stage III : Adenocarcinoma, status post right hemicolectomy and neoadjuvant chemotherapy along with CKD 3, Hypertension, dyslipidemia and hypothyroidism who presented with complaints of nausea and an obstipation; she will be admitted for management of small bowel obstruction. #Gastric outlet obstruction due to metastatic cancer: Dr. Schwarz on Monday had a discussion with patient regarding her options. Dr. Louise 08/16/2020 will also have another discussion likely attempt a laparoscopic gastrojejunostomy tube to bypass the obstruction and transition to pursue feeding and then follow up with oncology Dr Georges for plan which may be palliative. Currently patient has a nasogastric tube intermittent suction to low for medications now with minimal return. Patient is nothing by mouth due to the obstruction. Palliative care consult. #Elevated lipase: CT not showing pink otitis no abdominal pain currently. The me criteria. Likely elevated from the obstruction. # H/o right internal jugular vein DVT: 05/2019, was on Xarelto which has been held since admission due to possible surgery. # JANELL: replace iron. # Hypertension: Currently normotensive. If needed can continue meds through feeding tube postop. # Hypothyroidism: resume Synthroid through feeding tube post op # CKD 4: Follow-up with nephrology outpatient. Monitor creatinine and GFR daily. Avoid nephrotoxins. # DVT prophylaxis: Janie Fma Hospitalist VS,Fishbone, I+O VS, Fishbone, I+O Laboratory Tests 08/16/20 05:27 Vital Signs Date Time Temp Pulse Resp B/P (MAP) Pulse Ox O2 Delivery O2 Flow Rate FiO2 08/16/20 14:00 98.3 82 18 114/72 (86) 97 Room Air I&O- Last 24 Hours up to 6 AM 08/16/20 06:00 Intake Total 1080 ml Output Total 1650 ml Balance -570 ml MARIANNE FAM MD Aug 16, 2020 17:30
--- NOTE | 2020-08-16 20:40 | CR ---
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 Essentially it is colon cancer, metastatic to the lymph nodes/duodenal head area. The patient had resection of large obstructing right colon cancer last year and has undergone multiple bouts of chemotherapy and presents with a 2-3 week history of progressively becoming worse. She was seen by GI who ended up proceeding with an upper endoscopy and saw a nearly obstructing mass in the duodenum. Essentially is in the position of discussing options with her oncologist, has not had the follow up as of yet. She however presents with inability to take p.o. intake in, abdominal distention and epigastric pain, nausea, vomiting. A CAT scan reveals a high grade gastric outlet/duodenal obstruction with distal decompressed bowel. The patient had an NG tube placed in the Emergency Room and approximately a liter of fluid was removed and her abdominal distention significantly improved. PAST MEDICAL HISTORY: The patient's past medical history is significant for: 1. History of stage 3 colon cancer with cancer now spread to the second portion of the duodenum. 2. History of deep vein thrombosis. 3. History of iron deficiency anemia. 4. History of hypertension. 5. History of hypothyroidism. PAST SURGICAL HISTORY: The patient's past surgical history is significant for history of total abdominal hysterectomy and bilateral salpingo-oophorectomy. MEDICATIONS: 1. Colace. 2. Epi pac. 3. Pepcid. 4. Glucosamine. 5. Synthroid. 6. Metoprolol. 7. Xarelto. 8. Iron. PHYSICAL EXAMINATION: GENERAL APPEARANCE: An 85-year-old female who looks stated age. HEENT: Unremarkable. NECK: Supple without adenopathy. LUNGS: Clear anteriorly. HEART: Regular. ABDOMEN: Soft, nondistended, nontender. No guarding, no rebound, no peritoneal signs are appreciated. Her midline incision is present from the open collectomy. IMPRESSION AND PLAN: The patient has an obstructing duodenal cancer. Unfortunately this is relatively advanced, and my concern at this point with the elevated lipase is that this is starting to obstruct the common bile duct/pancreatic duct area. In general, I would recommend proceeding with minimal intervention until Oncology can determine whether she is a candidate/can have immunotherapy, etc., thus options include possible stenting, although this did not seem like an option given the current presentation and the nearly obstructing is a high grade stenosis it appears, and more importantly, the area of the stenting would be in the second portion of the duodenum, it looks like which could obstruct the common bile duct, pancreatic duct area in itself. Thus, options include a separate GE tube and a jejunostomy tube, possible placing this laparoscopically. Other options including a gastrojejunostomy bypass type of operation (to allow the stomach contents to go into the jejunum). In any case, other options are more extensive. However at this point my concern is that this a terminal state for her and that more of a palliative approach would be best off for her and putting a G tube in a J tube would be very reasonable. I have discussed this with Dr. Louise who is back on Monday and he should be able to accommodate a laparoscopic gastrostomy/jejunostomy tube placement. We will see how she is doing in the morning. If she opens up, then we can forego that treatment forego treatment, but will see how she is doing in the next 12 hours.
[2020-08-16] MEDS: METOPROLOL TART 50 MG TAB PO SCH (20:50)
[2020-08-16 22:00] VITALS: BP 112/63
[2020-08-17 06:00] VITALS: BP 128/68
[2020-08-17 06:31] LABS: HEMATOCRIT 28.2 % (36.0-47.0); HEMOGLOBIN 8.3 g/dl (12.0-15.5); MEAN CORPUSCULAR HEMOGLOBIN 27.2 pg (27.0-33.0); MEAN CORPUSCULAR HGB CONC 29.4 g/dl (32.0-36.5); MEAN CORPUSCULAR VOLUME 92.5 fl (80.0-96.0); PLATELET COUNT, AUTOMATED 339 10^3/uL (150-450); RED BLOOD COUNT 3.05 10^6/uL (4.00-5.40)
[2020-08-17 06:53] LABS: ALBUMIN 2.5 GM/DL (3.2-5.2); ALT/SGPT 23 U/L (12-78); BILIRUBIN,TOTAL 0.5 MG/DL (0.2-1.0); BLOOD UREA NITROGEN 22 MG/DL (7-18); CALCIUM LEVEL 7.7 MG/DL (8.8-10.2); CARBON DIOXIDE LEVEL 20 MEQ/L (21-32); CHLORIDE LEVEL 112 MEQ/L (98-107); CREATININE FOR GFR 0.87 MG/DL (0.55-1.30); GLOMERULAR FILTRATION RATE > 60.0 (>32); GLUCOSE, FASTING 56 MG/DL (70-100); POTASSIUM SERUM 3.6 MEQ/L (3.5-5.1); SODIUM LEVEL 144 MEQ/L (136-145); TOTAL PROTEIN 4.8 GM/DL (6.4-8.2)
[2020-08-17] MEDS: NS 1,000 ML IV SCH ×2 (07:54→22:42)
[2020-08-17] MEDS: METOPROLOL TART 25 MG TABLET PO SCH (07:56)
--- NOTE | 2020-08-17 08:24 | IPNPDOC ---
Text Note Date of Service The patient was seen on 08/17/20. NOTE Subjective: Patient seen and examined at bedside. Patient feels well today. Waiting to hear back from surgery this morning regarding the plan of her care whether she'll go stenting or surgery. Patient has NG tube in place with minimal return. She feels well and denies being in any pain. She denies any chest pain or tenderness of breath. Says her nausea and vomiting seemed to have resolved. Objective: Constitutional: Awake and alert, in no apparent distress ENT: Sclera are clear. Mucosa is moist. NG tube to intermittent suction Respiratory: Lungs CTA bilaterally. No respiratory distress. No use of accessory muscles. Cardiovascular: RRR S1 and S2 are normal, no murmur Gastrointestinal: Abdomen is soft, non distended, non tender, BS present. Musculoskeletal: No edema. No joint deformities. RUE 5/5, LUE 5/5, BLE 5/5 Neurologic: No focal neurological deficit Mental Status: A&O x3, normal affect Skin: Warm, dry Assessment/plan: is an 85-year-old female with a history of metastatic stage III : Adenocarcinoma, status post right hemicolectomy and neoadjuvant chemotherapy along with CKD 3, Hypertension, dyslipidemia and hypothyroidism who presented w ith complaints of nausea and an obstipation; she will be admitted for management of gastric obstruction due to metastatic cancer. #Gastric outlet obstruction due to metastatic cancer: Dr. Louise had a discussion with the patient's morning and we'll first attempt to have GI tried to place stents in today and if unsuccessful plan to attempt a laparoscopic gastrojejunostomy tube to bypass the obstruction and transition to pursue feeding and then follow up with oncology Dr Georges for plan which may be palliative. Currently patient has a nasogastric tube intermittent suction to low for medications now with minimal return. Patient is nothing by mouth due to the obstruction. Palliative care consult. #Elevated lipase: CT not showing pink otitis no abdominal pain currently. Likely elevated from the obstruction. Downtrending # H/o right internal jugular vein DVT: 05/2019, was on Xarelto which has been held since admission due to possible surgery. # JANELL: replace iron. # Hypertension: Currently normotensive. If needed can continue meds through feeding tube postop. # Hypothyroidism: resume Synthroid through feeding tube post op # CKD 4: Follow-up with nephrology outpatient. Monitor creatinine and GFR daily. Avoid nephrotoxins. # DVT prophylaxis: ETELVINAs A [facility] Hospitalist Jennifer PEDRO, I+O Jennifer PEDRO I+O Laboratory Tests 08/17/20 05:57 Vital Signs Date Time Temp Pulse Resp B/P (MAP) Pulse Ox O2 Delivery O2 Flow Rate FiO2 08/17/20 07:56 83 137/69 08/17/20 06:00 97.9 17 99 Room Air I&O- Last 24 Hours up to 6 AM 08/17/20 06:00 Intake Total 0 ml Output Total 700 ml Balance -700 ml MARIANNE PEDRO MD Aug 17, 2020 08:24
--- NOTE | 2020-08-17 10:47 | IPNPDOC ---
Text Note Date of Service The patient was seen on 08/17/20. NOTE No acute events overnight. She has had minimal output from her NG tube. No p roblems with abd pains, nausea, or emesis. She feels lots of gurgling in her abdomen, but no flatus or BM yet. No complaints. We had a long discussion about her prognosis as well as options for nutrition going forward. She told me that Dr. Alba had advised against a stent, so she was on the schedule with me today for PEG tube and J tube. I explained both procedures to her as well as I could because my knowledge of the luminal stents is limited. However, after a lengthy discussion, she would prefer to be able to eat and drink by mouth if at all possible. I was able to discuss this with Dr. Alba who is willing to take a look with a scope today and see if it is possible to get the stent in place. If not, then I will place her on the schedule with me for tomorrow to have the feeding tubes placed. Bakari Parnell DO VSJennifer, I+O VSJennifer, I+O Laboratory Tests 08/17/20 05:57 Vital Signs Date Time Temp Pulse Resp B/P (MAP) Pulse Ox O2 Delivery O2 Flow Rate FiO2 08/17/20 07:56 83 137/69 08/17/20 06:00 97.9 17 99 Room Air I&O- Last 24 Hours up to 6 AM 08/17/20 05:59 Intake Total 1080 ml Output Total 1500 ml Balance -420 ml YAIMA IBARRA DO Aug 17, 2020 10:47
[2020-08-17 14:00] VITALS: BP_SYST 135; BP_SYST 136; BP_DIAS 69; BP_DIAS 74
[2020-08-17] MEDS: METOPROLOL TART 50 MG TAB PO SCH (20:37)
[2020-08-17 22:00] VITALS: BP 133/68
[2020-08-18] VITALS (7 sets, daily range): BP systolic 124–146; BP diastolic 69–85
[2020-08-18 07:30] LABS: HEMATOCRIT 28.6 % (36.0-47.0); HEMOGLOBIN 8.5 g/dl (12.0-15.5); MEAN CORPUSCULAR HGB CONC 29.7 g/dl (32.0-36.5); MEAN CORPUSCULAR VOLUME 90.8 fl (80.0-96.0); PLATELET COUNT, AUTOMATED 361 10^3/uL (150-450); RED BLOOD COUNT 3.15 10^6/uL (4.00-5.40); WHITE BLOOD COUNT 12.8 10^3/uL (4.0-10.0)
[2020-08-18 07:57] LABS: ALBUMIN 2.3 GM/DL (3.2-5.2); ALT/SGPT 19 U/L (12-78); BILIRUBIN,TOTAL 0.5 MG/DL (0.2-1.0); BLOOD UREA NITROGEN 16 MG/DL (7-18); CARBON DIOXIDE LEVEL 16 MEQ/L (21-32); CHLORIDE LEVEL 114 MEQ/L (98-107); CREATININE FOR GFR 0.78 MG/DL (0.55-1.30); GLOMERULAR FILTRATION RATE > 60.0 (>32); GLUCOSE, FASTING 78 MG/DL (70-100); POTASSIUM SERUM 3.6 MEQ/L (3.5-5.1); SODIUM LEVEL 140 MEQ/L (136-145); TOTAL PROTEIN 5.4 GM/DL (6.4-8.2)
[2020-08-18] MEDS: NS 1,000 ML IV SCH ×2 (08:32→14:46)
[2020-08-18] MEDS: METOPROLOL TART 25 MG TABLET PO SCH (08:33)
--- NOTE | 2020-08-18 08:57 | IPNPDOC ---
Text Note Date of Service The patient was seen on 08/18/20. NOTE No acute events overnight. She had a discussion with Dr. Alba yesterday and has decided against the stent for now. She doesn't want to be here for the holidays which is perfectly understandable. We will plan to do the G and J tubes this afternoon, and plan to get her out of the hospital [place]. VSSAF NAD abd - soft, nt, nd A) 85y/o female with an obstructing duodenal mass. P) OR around 11 today for PEG and Lap J tube placement. NPO Bakari Louise DO VS,Fishbone, I+O VS, Fishbone, I+O Laboratory Tests 08/18/20 07:01 Vital Signs Date Time Temp Pulse Resp B/P (MAP) Pulse Ox O2 Delivery O2 Flow Rate FiO2 08/18/20 08:33 75 134/70 08/18/20 06:00 98.4 18 99 Room Air I&O- Last 24 Hours up to 6 AM 08/18/20 05:59 Intake Total 2160 ml Output Total 1100 ml Balance 1060 ml YAIMA LOUISE DO Aug 18, 2020 08:56
[2020-08-18] MEDS ORDERED: LIDOCAINE W/EPINEPHRINE 1% 20ML VIAL As Ordered ONE (10:10)
[2020-08-18] MEDS ORDERED: propofoL 200 MG/20 ML VIAL As Ordered ONE (11:57)
[2020-08-18] MEDS ORDERED: ONDANSETRON 4MG/2ML VIAL As Ordered ONE (11:57)
[2020-08-18] MEDS ORDERED: dexameTHASONE 4 MG/ML 1ML VIAL (J1100 PER 1MG) As Ordered ONE (11:57)
[2020-08-18] MEDS ORDERED: fentaNYL 100 MCG/2 ML INJECTION (J3010) As Ordered ONE ×2 (11:57→12:09)
[2020-08-18] MEDS ORDERED: LIDOCAINE 2% 100MG/5ML SDV (FOR ANES.) As Ordered ONE (11:57)
[2020-08-18] MEDS ORDERED: ROCURONIUM BROMIDE 50 MG/5 ML VIAL As Ordered ONE (11:57)
[2020-08-18] MEDS ORDERED: MIDAZOLAM INJ 2MG/2ML VIAL (J2250 PER 1MG) As Ordered ONE (11:57)
[2020-08-18] MEDS ORDERED: PHENYLephrine HCL 500 MCG/5 ML (100MCG/ML) SYRINGE (J2370) As Ordered ONE (11:58)
[2020-08-18] MEDS ORDERED: ePHEDrine SULFATE 25 MG/5 ML(5MG/ML) SYRINGE As Ordered ONE (11:58)
[2020-08-18] MEDS ORDERED: SUGAMMADEX SODIUM 500 MG/5 ML VIAL (BRIDION) As Ordered ONE (12:29)
[2020-08-18] MEDS ORDERED: ACETAMINOPHEN 1000MG 100ML IV BTL (OFIRMEV) (J0131 PER 10MG) As Ordered ONE (12:32)
[2020-08-18] MEDS ORDERED: METOCLOPRAMIDE INJ 10MG/2ML VIAL (J2765 PER 1) IV PRN (13:45)
[2020-08-18] MEDS ORDERED: LR 1,000 ML IV SCH (13:45)
[2020-08-18] MEDS ORDERED: ONDANSETRON 4MG/2ML VIAL IV PRN (13:45)
[2020-08-18] MEDS ORDERED: fentaNYL 100 MCG/2 ML INJECTION (J3010) IV PRN (13:45)
--- NOTE | 2020-08-18 15:17 | RO ---
OPERATIVE NOTE DATE OF OPERATION: 08/18/2020 PREOPERATIVE DIAGNOSIS: Duodenal obstruction. POSTOPERATIVE DIAGNOSIS: Duodenal obstruction. PROCEDURE: Laparoscopic lysis of adhesions with laparoscopic J-tube placement followed by upper esophagogastroduodenoscopy (EGD) and percutaneous endoscopic gastrostomy (PEG) tube placement. SURGEON: Dr. Louise RAIL WASHER: Dr. Schwarz assisted with mobilization of bowel, feeding tube placement, and J tube placement. ANESTHESIA: General with 5 mL of 1% lidocaine local. COMPLICATIONS: None. ESTIMATED BLOOD LOSS: 5. INDICATIONS FOR PROCEDURE: Patient is an 85-year-old female with a history of metastatic colon cancer that spread into the duodenum, resulting in an obstruction. Recommendation was to proceed with gastrostomy (G) tube and J tube. Risks and benefits of the procedure, not limited to, but including bleeding, infection, hernia formation, damage to surrounding structures, need for further surgery were discussed in detail with the patient. Informed consent was obtained. Procedure was planned. PROCEDURE DESCRIPTION: Patient was brought back to the operating room #1. After sufficient sedation, the abdomen was sterilely prepped and draped. Time out was done to confirm proper patient, proper procedure. Following that, a 5 mm incision was made in the left upper quadrant. Veress needle was inserted, and abdomen was insufflated to 15 mmHg. The Veress needle was then removed, and a 5 mm Optiview port was used to gain access to the abdomen. Once the abdomen was entered, there were multiple adhesions to the anterior abdominal wall. Two more 5 mm ports were placed, one in the left lower quadrant, one in the right lower quadrant. Adhesions were taken down with cautery. The omentum was mobilized superiorly, and the small bowel was traced back toward the ligament of Treitz. Once the ligament of Treitz was identified, a good location for the jejunum, where it was able to be mobilized up to the anterior abdominal wall, was taken. Three T fasteners were then placed in a triangle and loosely tightened in place. A cannulation needle was then placed into the middle followed by a guidewire. A 5 mm incision was then created. A split-sheath introducer was passed over top of the guidewire into the small intestine. Once that was done, the dilator was removed, leaving the split-sheath introducer in place, and an 18-Pakistani J tube was placed. Once the J tube was in, the balloon was filled with 7 mL of saline. Split-sheath introducer was removed. The balloon was held up toward the abdominal wall, and the bumper was sutured in place with 2-0 nylon sutures. The two fasteners were then tightened in place, ending that portion of the procedure. Next, the abdomen was desulfated. The endoscope was passed into the side of the stomach. The stomach was inflated, revealing a large bezoar through the pylorus. The duodenal mass was identified. Appeared to be completely circumferentially obstructing. The scope was then brought back inside of the stomach. I was able to transilluminate through the abdominal wall as well as palpate, and we were able to use the 5 mm port site from the left upper quadrant to pass the feeding tube through. We first passed in the needle followed by the guidewire. The guidewire was brought out through the oropharynx using the snare on the scope. A 20-Pakistani feeding tube was then pushed over top of the guidewire and brought into place. Endoscope was passed back inside to confirm proper placement and no bleeding. The caps were then placed on top of the feeding tube along with the bumper, this ending that portion of the procedure. The patient tolerated the procedure well and was awakened from anesthesia and sent to PACU in stable condition.
[2020-08-18] MEDS: MORPHINE 2 MG/ML 1ML VIAL (J2270) IV PRN (15:50)
--- NOTE | 2020-08-18 17:21 | CR.PDOC ---
General Date of Consultation: Aug 18, 2020 Referring Provider: MARIANNE PEDRO MD Primary Care Physician: Gina Manzo PA-C, LAC Consultation REASON FOR CONSULTATION/CHIEF COMPLAINT: I was contacted by program planner to meet with and speak with her about [facility] and see if palliative care services might have something to offer her. CC at this moment is post op pain; presenting symptom of nausea has resolved since JG tube placed today. HISTORY OF PRESENT ILLNESS: 85 year old female with history of colon cancer s/p treatment with hemocolectomy and FOLFOX chemotherapy was doing well until this fall when she noted increasing nausea, difficulty with bowel movements. She presented to the ED and was found to have obstructing tumor. She had JG tube placed today and reported since decompression earler in this admission and being NPO, her nausea has improved. She stated she has seen Dr Nunez at [facility] and was told she could have additional c hemotherapy if she wants it. stated she understands her cancer is terminal and regardless of treatment she will likely succumb to her disease at some point. She expressed she was not sure if she wanted to have more chemotherapy; she is giving this further consideration. ALLERGIES: Please see below. HOME MEDICATIONS: Please see below. PAST MEDICAL HISTORY: 1. HTN 2. hypothyroidism 3. anemia 4. DVT PAST SURGICAL HISTORY: 1. TAHBSO 2. hemicolectomy FAMILY HISTORY: Father: kidney cancer Mother: dementia, htn Siblings: s-Alzheimers; s-thyroid cancer Children: 3 A+W SOCIAL HISTORY: Marital status and/or living arrangements: for 6+ years, lives with [place]. Daughter lives next door Children: 3 Employment: retired Tobacco use:none ETOH: none Illicit drug use: none IV drug use: none Other relevant social factors: judaism, has strong relationship with her [place] family REVIEW OF SYSTEMS: CONSTITUTIONAL: denies fevers,chills, night sweats. 10-12 lbweight loss HEENT: no vision changes, denies sore throat CARDIOVASCULAR: denies chest pain, palpitations RESPIRATORY: ESPINAL GENITOURINARY: no dysuria or hematuria MUSCULOSKELETAL: denies any joint inflammation or swelling GASTROINTESTINAL: gastric bostruction relieved by JG tube SKIN: denies rashes, lumps/bumps NEUROLOGICAL: denies headaches, tremors, weakness PSYCHIATRIC: denies depression, anxiety ENDOCRINE: denies excessive thirst or hunger; histo of hypothyroidism HEMATOLOGIC/LYMPHATIC: colon cancer ALLERGIC/IMMUNOLOGIC: s/p FOLFOX PHYSICAL EXAMINATION: VITAL SIGNS: Please see below. GENERAL APPEARANCE: resting comfortably, easily arousable HEENT: SANTANA, EOM intact, nonicteric RESPIRATORY: CTA CARDIOVASCULAR: RRR ABDOMEN: diffuse tenderness around surgical site, no guarding or rebound EXTREMITIES: no edema NEUROLOGICAL: good motor strength; some allodynia nd sensory defiict fingers and lower ext. PSYCHIATRIC: appears euthymic LABORATORY DATA: Please see below. ASSESSMENT/PLAN: 1. Gastric outlet obstruction s/p JG tube 2. Goals of care: expressed the desire to live as long as she can though she understands her cancer will likely result in her at some point in the future. She is not sure if she wants to have further chemotherapy as she found her last experience with chemotherapy somewhat challenging. We discussed what I may be able to offer her through [facility] as far as symptom management, and if and when appropriate, transitioning to hospice. She has my business card to contact me with any questions or concerns. She has advanced directives indicating NDR/DNI. Her daughter is HCP and POA. At this point she has decided to try to prolong her life with tube feeding and hydration; she stated it is her understanding if she decides to try to have a stent placed in the future, she may be able to have the JG tube removed. Should she chose to try another round of chemotherapy [facility] may be able to help her through her treatment. She will give all of this some careful consideration and make a decision at some point in the future. Vital Signs/I&O Vital Signs Date Time Temp Pulse Resp B/P (MAP) Pulse Ox O2 Delivery O2 Flow Rate FiO2 08/18/20 15:50 16 08/18/20 14:02 97 94 128/78 (95) 99 Room Air 08/18/20 13:30 3 I&O- Last 24 Hours up to 6 AM 08/18/20 06:00 Intake Total 2160 ml Output Total 1100 ml Balance 1060 ml Laboratory Data Labs 24H Laboratory Tests 2 08/18/20 07:01: Nucleated Red Blood Cells % (auto) 0.0, Anion Gap 10, Glomerular Filtration Rate > 60.0, Calcium Level 8.0L, Total Bilirubin 0.5, Aspartate Amino Transf (AST/SGOT) 14, Alanine Aminotransferase (ALT/SGPT) 19, Alkaline Phosphatase 48, Total Protein 5.4L, Albumin 2.3L, Albumin/Globulin Ratio 0.7L CBC/BMP Laboratory Tests 08/18/20 07:01 Allergies Coded Allergies: bee venom protein (honey bee) (Verified Adverse Reaction, Mild, vom itting/diarrhea, 05/09/19) Home Medications Scheduled Docusate Sodium (Colace) 100 Mg Capsule, 100 MG PO DAILY, (Reported) Epinephrine (Epipen 2-Liam) 0.3 Mg/0.3 Ml Auto.injct, 1 SYRINGE IM ONCE for 1 Days, #1 Famotidine (Famotidine) 20 Mg Tablet, 20 MG PO BID, (Reported) Glucosamine/Chondr Francis A Sod (Cidaflex Tablet) 1 Each Tablet, 1,000 MG PO DAILY, (Reported) Levothyroxine Sodium (Levothyroxine Sodium) 88 Mcg Tablet, 88 MCG PO DAILY, (Reported) Metoprolol Tartrate (Metoprolol Tartrate) 25 Mg Tablet, 25 MG PO QAM, (Reported) Metoprolol Tartrate (Metoprolol Tartrate) 25 Mg Tablet, 50 MG PO QHS, (Reported) patient states has not taken in a few days since bp has been low Rivaroxaban (Xarelto) 20 Mg Tablet, 20 MG PO DAILY, (Reported) [Gentle Iron] , 25 MG PO DAILY, (Reported) Scheduled PRN Ondansetron HCl (Ondansetron HCl) 8 Mg Tablet, 8 MG PO Q6H PRN for NAUSEA OR VOMITING, (Reported) Propylene Glycol/Peg 400 (Systane 0.3-0.4% Eye Drops) 15 Ml Drops, 1 DROP OU BID PRN for DRY EYES, (Reported) Indigo ZAMORA SCRATCHER Aug 18, 2020 17:13
--- NOTE | 2020-08-18 19:44 | IPNPDOC ---
Text Note Date of Service The patient was seen on 08/18/20. NOTE Subjective: No any acute events overnight. PEG was placed today, patient ed erates procedure well Objective: GENERAL APPEARANCE: NAD HEENT: no scleral icterus, no JVD, EOMI CARDIOVASCULAR: S1S2 LUNGS: Diminished lung sounds bilaterally ABDOMEN: soft & not tender w palpitation MUSCULOSKELETAL: no cyanosis, no swelling INTEGUMENT: no generalized palor NEUROLOGICAL: cranial nerve function from 2-12 intact intact, follows commands, speech not dysarthric Assessment and plan is an 85-year-old female with a history of metastatic stage III: Adenocarcinoma, status post right hemicolectomy and neoadjuvant chemotherapy along with CKD 3, hypertension, dyslipidemia and hypothyroidism who presented with complaints of nausea and an obstipation; she will be admitted for management of gastric obstruction due to metastatic cancer. Gastric outlet obstruction due to metastatic cancer PEG was placed today by Dr. Louise Palliative care consult Elevated lipase CT not showing pancreatitis, lipase most likely elevated from the obstruction. H/o right internal jugular vein DVT 05/2019, was on Xarelto which has been held since admission due to possible surgery JANELL replace iron Hypertension Continue home cardioprotective medications Hypothyroidism Continue levothyroxine CKD 4 Follow-up with nephrology outpatient VS,Jennifer, I+O VS, Jennifer, I+O Laboratory Tests 08/18/20 07:01 Vital Signs Date Time Temp Pulse Resp B/P (MAP) Pulse Ox O2 Delivery O2 Flow Rate FiO2 08/18/20 16:00 16 08/18/20 14:02 97 94 128/78 (95) 99 Room Air 08/18/20 13:30 3 I&O- Last 24 Hours up to 6 AM 08/18/20 06:00 Intake Total 2160 ml Output Total 1100 ml Balance 1060 ml ALENA COLE DO Aug 18, 2020 19:44
[2020-08-18] MEDS: ACETAMINOPHEN TAB 650MG DOSE (2X325MG) PO PRN (21:40)
[2020-08-18] MEDS: METOPROLOL TART 50 MG TAB PO SCH (21:40)
[2020-08-19] MEDS: NS 1,000 ML IV SCH ×3 (01:02→21:52)
[2020-08-19] MEDS: MORPHINE 2 MG/ML 1ML VIAL (J2270) IV PRN (05:01)
[2020-08-19 06:00] VITALS: BP 117/65
[2020-08-19 06:47] LABS: HEMATOCRIT 28.1 % (36.0-47.0); HEMOGLOBIN 8.8 g/dl (12.0-15.5); MEAN CORPUSCULAR HEMOGLOBIN 28.2 pg (27.0-33.0); MEAN CORPUSCULAR HGB CONC 31.3 g/dl (32.0-36.5); MEAN CORPUSCULAR VOLUME 90.1 fl (80.0-96.0); PLATELET COUNT, AUTOMATED 356 10^3/uL (150-450); RED BLOOD COUNT 3.12 10^6/uL (4.00-5.40); WHITE BLOOD COUNT 13.5 10^3/uL (4.0-10.0)
[2020-08-19 07:17] LABS: ALBUMIN 2.1 GM/DL (3.2-5.2); ALT/SGPT 16 U/L (12-78); BILIRUBIN,TOTAL 0.4 MG/DL (0.2-1.0); BLOOD UREA NITROGEN 15 MG/DL (7-18); CALCIUM LEVEL 7.8 MG/DL (8.8-10.2); CARBON DIOXIDE LEVEL 16 MEQ/L (21-32); CHLORIDE LEVEL 115 MEQ/L (98-107); CREATININE FOR GFR 0.83 MG/DL (0.55-1.30); GLOMERULAR FILTRATION RATE > 60.0 (>32); GLUCOSE, FASTING 102 MG/DL (70-100); POTASSIUM SERUM 3.3 MEQ/L (3.5-5.1); SODIUM LEVEL 143 MEQ/L (136-145); TOTAL PROTEIN 5.1 GM/DL (6.4-8.2)
--- NOTE | 2020-08-19 07:45 | IPNPDOC ---
Text Note Date of Service The patient was seen on 08/19/20. NOTE No acute events overnight. She has some tenderness at the J tube site only. Denies nausea, emesis, fevers, or chills. VSSAF NAD abd - soft, ttp as appropriate, nd A) 85y/o female with an obstructing duodenal mass. POD#1 s/p lap J tube and PEG. P) start tube feeds today flush G tube frequently plan for discharge tomorrow Bakari Louise DO VS,Jennifer, I+O VS, Jennifer, I+O Laboratory Tests 08/19/20 06:23 Vital Signs Date Time Temp Pulse Resp B/P (MAP) Pulse Ox O2 Delivery O2 Flow Rate FiO2 08/19/20 06:00 97.9 98 16 117/65 (82) 98 Room Air 08/18/20 13:30 3 I&O- Last 24 Hours up to 6 AM 08/19/20 06:00 Intake Total 2920 ml Output Total 1050 ml Balance 1870 ml YAIMA LOUISE DO Aug 19, 2020 07:45
[2020-08-19] MEDS: METOPROLOL TART 25 MG TABLET PO SCH (08:41)
--- NOTE | 2020-08-19 13:11 | IPNPDOC ---
Text Note Date of Service The patient was seen on 08/19/20. NOTE Subjective: No any acute events overnight. PEG was placed yesterday. Patient stated that she feels better today Objective: GENERAL APPEARANCE: NAD HEENT: no scleral icterus, no JVD, EOMI CARDIOVASCULAR: S1S2 LUNGS: Diminished lung sounds bilaterally ABDOMEN: soft & not tender w palpitation MUSCULOSKELETAL: no cyanosis, no swelling INTEGUMENT: no generalized palor NEUROLOGICAL: cranial nerve function from 2-12 intact intact, follows commands, speech not dysarthric Assessment and plan is an 85-year-old female with a history of metastatic stage III: Adenocarcinoma, status post right hemicolectomy and neoadjuvant chemotherapy along with CKD 3, hypertension, dyslipidemia and hypothyroidism who presented with complaints of nausea and an obstipation; she will be admitted for management of gastric obstruction due to metastatic cancer. Gastric outlet obstruction due to metastatic cancer PEG was placed yesterday by Dr. Louise Palliative care consult Elevated lipase CT not showing pancreatitis, lipase most likely elevated from the obstruction. H/o right internal jugular vein DVT 05/2019, was on Xarelto which has been held since admission due to possible surgery JANELL replace iron Hypertension Continue home cardioprotective medications Hypothyroidism Continue levothyroxine CKD 4 Follow-up with nephrology outpatient VS,Jennifer, I+O VS, Jennifer, I+O Laboratory Tests 08/19/20 06:23 Vital Signs Date Time Temp Pulse Resp B/P (MAP) Pulse Ox O2 Delivery O2 Flow Rate FiO2 08/19/20 08:41 98 117/65 08/19/20 06:00 97.9 16 98 Room Air 08/18/20 13:30 3 I&O- Last 24 Hours up to 6 AM 08/19/20 06:00 Intake Total 2920 ml Output Total 1050 ml Balance 1870 ml ALENA COLE DO Aug 19, 2020 13:11
[2020-08-19] MEDS ORDERED: POTASSIUM CHLORIDE 10 MEQ SR TABLET PO ONE (13:15)
[2020-08-19] MEDS: METOPROLOL TART 50 MG TAB PO SCH (20:20)
[2020-08-19 22:00] VITALS: BP 138/64
[2020-08-20 06:00] VITALS: BP 126/59
[2020-08-20 07:05] LABS: HEMATOCRIT 27.5 % (36.0-47.0); HEMOGLOBIN 8.7 g/dl (12.0-15.5); MEAN CORPUSCULAR HEMOGLOBIN 27.8 pg (27.0-33.0); MEAN CORPUSCULAR HGB CONC 31.6 g/dl (32.0-36.5); MEAN CORPUSCULAR VOLUME 87.9 fl (80.0-96.0); PLATELET COUNT, AUTOMATED 374 10^3/uL (150-450); RED BLOOD COUNT 3.13 10^6/uL (4.00-5.40); WHITE BLOOD COUNT 12.7 10^3/uL (4.0-10.0)
[2020-08-20 07:31] LABS: ALBUMIN 1.8 GM/DL (3.2-5.2); ALT/SGPT 14 U/L (12-78); BILIRUBIN,TOTAL 0.3 MG/DL (0.2-1.0); BLOOD UREA NITROGEN 10 MG/DL (7-18); CALCIUM LEVEL 7.6 MG/DL (8.8-10.2); CARBON DIOXIDE LEVEL 22 MEQ/L (21-32); CHLORIDE LEVEL 114 MEQ/L (98-107); CREATININE FOR GFR 0.73 MG/DL (0.55-1.30); GLOMERULAR FILTRATION RATE > 60.0 (>32); GLUCOSE, FASTING 175 MG/DL (70-100); SODIUM LEVEL 142 MEQ/L (136-145); TOTAL PROTEIN 4.8 GM/DL (6.4-8.2)
[2020-08-20 08:54] VITALS: BP 110/64
[2020-08-20] MEDS: METOPROLOL TART 25 MG TABLET PO SCH (08:54)
[2020-08-20] MEDS: ACETAMINOPHEN TAB 650MG DOSE (2X325MG) PO PRN (08:54)
--- NOTE | 2020-08-20 09:40 | IPNPDOC ---
Text Note Date of Service The patient was seen on 08/20/20. NOTE No acute events overnight. She has some tenderness at the J tube site only. Denies nausea, emesis, fevers, or chills. She is passing lots of flatus, but no BM yet. VSSAF NAD abd - soft, ttp as appropriate, nd, minimal drainage around the J-tube A) 85y/o female with an obstructing duodenal mass. POD#2 s/p lap J tube and PEG. P) continue tube feeds flush G tube frequently plan for discharge today call office with any questions f/u in office in 2 weeks. Bakari Louise DO VS,Jennifer, I+O VS, Antoinee, I+O Laboratory Tests 08/20/20 06:18 Vital Signs Date Time Temp Pulse Resp B/P (MAP) Pulse Ox O2 Delivery O2 Flow Rate FiO2 08/20/20 08:54 104 110/64 08/20/20 06:00 98.1 16 99 Room Air 08/18/20 13:30 3 I&O- Last 24 Hours up to 6 AM 08/20/20 06:00 Intake Total 3126 ml Output Total 725 ml Balance 2401 ml YAIMA LOUISE DO Aug 20, 2020 09:40
--- NOTE | 2020-08-20 15:59 | DS.PDOC ---
Discharge Summary General Date of Admission Aug 15, 2020 at 02:44 Date of Discharge 08/20/20 Discharge Summary PROCEDURES PERFORMED DURING STAY: [None]. 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 HISTORY OF PRESENT ILLNESS: is an 85-year-old female with a history of metastatic stage III: Adenocarcinoma, status post right hemicolectomy and neoadjuvant chemotherapy along with CKD 3, hypertension, dyslipidemia and hypothyroidism who presented with complaints of nausea and an obstipation; she will be admitted for management of gastric obstruction due to metastatic cancer. 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 Louise Palliative care consult Elevated lipase CT not showing pancreatitis, lipase most likely elevated from the obstruction. H/o right internal jugular vein DVT 05/2019, was on Xarelto which has been held since admission due to possible francis rgery JANELL replace iron Hypertension Continue home cardioprotective medications Hypothyroidism Continue levothyroxine CKD 4 Follow-up with nephrology outpatient DISCHARGE MEDICATIONS: Please see below. ALLERGIES: Please see below. PHYSICAL EXAMINATION ON DISCHARGE: VITAL SIGNS: Please see below. GENERAL APPEARANCE: NAD HEENT: no scleral icterus, no JVD, EOMI CARDIOVASCULAR: S1S2 LUNGS: Diminished lung sounds bilaterally ABDOMEN: soft & not tender w palpitation MUSCULOSKELETAL: no cyanosis, no swelling INTEGUMENT: no generalized palor NEUROLOGICAL: cranial nerve function from 2-12 intact intact, follows commands, speech not dysarthric LABORATORY DATA: Please see below. IMAGING: [facility] NAME: BOGDAN SMITH DATE OF : 1935 BUSINESS NUMBER: [id number] AGE: 85 SEX: F REPORT #: [id number] ROOM: ED TECHNOLOGIST: DAVE DOCTOR: PAIGE MCCARTHY DO Ordered for Date&Time: 08/15/20 0018 cc: [~ rep ct ivnm] Service Date&Time: This report is in Signed status. Interpretation performed by [facility]. Thank you for having your radiology procedures performed at [facility] RADIOLOGY REPORT Date&Time printed: [~ rep prt dt last] [~ rep prt tm last] Page 2 of [address] [id number] RADIOLOGY REPORT This report is in Signed status. Interpretation performed by [facility]. Thank you for having your radiology procedures performed at [facility] RADIOLOGY REPORT Date&Time printed: [~ rep prt dt last] [~ rep prt tm last] Page 1 of 1 Exam: CT Abdomen And Pelvis With Contrast Exam date and time: 08/15/2020 12:18 AM Age: 85 years old Clinical indication: Bloating and constipation and nausea and other: Known duodenal mass; Abdominal pain; Generalized; Additional info: Intractable nausea, known duodenal mass TECHNIQUE: Imaging protocol: Computed tomography of the abdomen and pelvis with intravenous contrast. Radiation optimization: All CT scans at this facility use at least one of these dose optimization techniques: automated exposure control; mA and/or kV adjustment per patient size (includes targeted exams where dose is matched to clinical indication); or iterative reconstruction. Contrast material: ISO; Contrast volume: 100 ml; Contrast route: INTRAVENOUS (IV); COMPARISON: CT ABD PELVIS WITH CONTRAST 02/24/2020 2:44 PM FINDINGS: Liver: Liver is unremarkable. Gallbladder and bile ducts: Common bile duct is dilated measuring up to 11 mm. No obstructing biliary tract calculi. Gallbladder is also dilated. Mild intrahepatic biliary duct dilation. Pancreas: The duodenal mass is not separable from the adjacent pancreatic head. The main pancreatic duct is dilated, similar to the prior exam. No pancreatic mass or inflammatory changes. Spleen: Small cysts in the spleen. Adrenal glands: Normal. No mass. Kidneys and ureters: Normal. No hydronephrosis. Stomach and bowel: The stomach and 1st portion of the duodenum are very dilated containing a large amount of fluid. An ill-defined mass in the 2nd portion of the duodenum has increased in size, measuring approximately 4.7 x 4.4 cm. The mass appears to completely obstruct the duodenal lumen. The small bowel and colon are completely decompressed. No inflammatory changes in the GI tract. Appendix: There has been prior appendectomy. Intraperitoneal space: No pneumatosis or pneumoperitoneum. Vasculature: Unremarkable. No abdominal aortic aneurysm. Lymph nodes: Unremarkable. No enlarged lymph nodes. Urinary bladder: Unremarkable as visualized. Reproductive: Unremarkable as visualized. Bones/joints: There are advanced degenerative changes in the spine and pelvis. Soft tissues: Unremarkable. IMPRESSION: 1. High-grade gastric and duodenal obstruction due to enlarging mass in the 2nd portion of the duodenum. Small bowel and colon are near completely decompressed. 2. Worsening intrahepatic and extrahepatic biliary duct dilation. Persistent pancreatic duct dilation. No signs of acute pancreatitis. Electronically signed by: Sumeet Osorio On 08/15/2020 01:00:45 AM DD: SUMEET OSORIO MD 08/15/2017 DT: DONTAE 08/15/2099 DS: LAYNE 08/15/2099 [~ rep ct labl] PROGNOSIS: Poor ACTIVITY: [As tolerated]. DIET: PEG feeding DISPOSITION: Home, Self-Care. ITEMS TO FOLLOWUP ON ON OUTPATIENT: With oncologist and palliative care DISCHARGE CONDITION: [Stable]. TIME SPENT ON DISCHARGE: Greater than 40 minutes. Vital Signs/I&Os Vital Signs Date Time Temp Pulse Resp B/P (MAP) Pulse Ox O2 Delivery O2 Flow Rate FiO2 08/20/20 08:54 104 110/64 08/20/20 06:00 98.1 16 99 Room Air 08/18/20 13:30 3 I&O- Last 24 Hours up to 6 AM 08/20/20 06:00 Intake Total 3126 ml Output Total 725 ml Balance 2401 ml Laboratory Data Labs 24H Laboratory Tests 2 08/20/20 06:18: Nucleated Red Blood Cells % (auto) 0.0, Anion Gap 6L, Glomerular Filtration Rate > 60.0, Calcium Level 7.6L, Total Bilirubin 0.3, Aspartate Amino Transf (AST/SGOT) 9, Alanine Aminotransferase (ALT/SGPT) 14, Alkaline Phosphatase 48, Total Protein 4.8L, Albumin 1.8L, Albumin/Globulin Ratio 0.6L CBC/BMP Laboratory Tests 08/20/20 06:18 Discharge Medications Scheduled Docusate Sodium (Colace) 100 Mg Capsule, 100 MG PO DAILY, (Reported) Epinephrine (Epipen 2-Liam) 0.3 Mg/0.3 Ml Auto.injct, 1 SYRINGE IM ONCE Famotidine (Famotidine) 20 Mg Tablet, 20 MG PO BID, (Reported) Glucosamine/Chondr Frnacis A Sod (Cidaflex Tablet) 1 Each Tablet, 1,000 MG PO DAILY, (Reported) Levothyroxine Sodium (Levothyroxine Sodium) 88 Mcg Tablet, 88 MCG PO DAILY, (Reported) Metoprolol Tartrate (Metoprolol Tartrate) 25 Mg Tablet, 25 MG PO QAM, (Reported) Metoprolol Tartrate (Metoprolol Tartrate) 25 Mg Tablet, 50 MG PO QHS, (Reported) patient states has not taken in a few days since bp has been low Rivaroxaban (Xarelto) 20 Mg Tablet, 20 MG PO DAILY, (Reported) [Gentle Iron] , 25 MG PO DAILY, (Reported) Scheduled PRN Ondansetron HCl (Ondansetron HCl) 8 Mg Tablet, 8 MG PO Q6H PRN for NAUSEA OR VOMITING, (Reported) Propylene Glycol/Peg 400 (Systane 0.3-0.4% Eye Drops) 15 Ml Drops, 1 DROP OU BID PRN for DRY EYES, (Reported) Allergies Coded Allergies: bee venom protein (honey bee) (Verified Adverse Reaction, Mild, vomitting/diarrhea, 05/09/19) ALENA COLE DO Aug 20, 2020 15:59
== END 2020-08-20 13:25 | disposition home health service (06) | DRG 336 ==
LOC: M ED 18:26 → M ED INP 08-15 02:44 → M MS5PR 08-15 04:15
PROVIDERS: ADMIT Internal Medicine; ATTEND Internal Medicine
PROC: 0DH64UZ Insertion of Feeding Device into Stomach, Percutaneous Endoscopic Approach (ICD-10-PCS; 2020-08-18)
PROC: 0DNU4ZZ Release Omentum, Percutaneous Endoscopic Approach (ICD-10-PCS; principal; 2020-08-18 11:00)
DX: C78.4 Secondary malignant neoplasm of small intestine (principal); C18.9 Malignant neoplasm of colon, unspecified; K31.5 Obstruction of duodenum; N18.4 Chronic kidney disease, stage 4 (severe); E03.9 Hypothyroidism, unspecified; D50.9 Iron deficiency anemia, unspecified; I12.9 Hypertensive chronic kidney disease with stage 1 through stage 4 chronic kidney disease, or unspecified chronic kidney disease; Z79.899 Other long term (current) drug therapy; Z91.030 Bee allergy status; Z86.718 Personal history of other venous thrombosis and embolism